=== PATIENT | female | born 1940 | race Caucasian/White ===

== ENCOUNTER 2023-12-21 12:07 | Inpatient (IN) | payer MEDICARE, SELFPAY ==
--- NOTE | ~2023-12-21 | CT_ITS ---
EXAMINATION: CT CHEST WITHOUT CONTRAST CLINICAL INFORMATION: Pulmonary nodules. History of smoking. COMPARISON: None available. TECHNIQUE: Multidetector volumetric CT imaging of the chest was done. Axial MIP volume rendering provided. Sagittal and coronal reformatted images were obtained. This CT examination was performed using dose optimization techniques as appropriate, variously including the following: *Automated exposure control *Adjustment of mA and/or kV according to patient size (this includes techniques or standardized protocols for targeted exams where dose is matched to indication/reason for exam; i.e. extremities or head) *Use of iterative reconstruction technique DLP: 134 mGy-cm FINDINGS: LUNGS: There is 12 mm, well-defined lobulated noncalcified pulmonary nodule, left lung base. There are multiple, scattered, nonspecific destined 5 mm pulmonary nodules, right lung. There is a 10 mm ill-defined nodular attenuation in the posterior segment right upper lobe. Less than 3 mm noncalcified pulmonary nodules, right middle lobe. Subsegmental atelectasis versus scarring, lingula. No bronchiectasis. No honeycombing. MEDIASTINUM: No lymphadenopathy. No pericardial effusion. Mixed plaques throughout the thoracic aorta and its main branches without gross aneurysm. CORONARY ARTERY CALCIFICATION: Calcified plaques in the coronary arteries. PLEURA: No pleural effusion. No pneumothorax. AXILLA: No lymphadenopathy. UPPER ABDOMEN: Calcified plaques throughout the splenic artery. Punctate calcifications throughout the likely pancreatic parenchyma. OSSEOUS STRUCTURES: Multilevel spondylosis. No acute fracture or listhesis. Chondrocalcinosis in the intervertebral disc T11-12. CT/CT chest wo IV con IMPRESSION: Multiple noncalcified pulmonary nodules, the largest in the left lung base measures 12 mm and the most irregular shape in the right upper lobe. Fleischner criteria: Low risk patients: CT abdomen 3-6-month then consider 18-24 months. High risk patients: CT at 3-six-month, then CT at 12/24 months. Coronary artery disease and atherosclerosis disease. Electronically signed by: Nick Mathis MD 12/23/2023 11:27 AM EDT
--- NOTE | ~2023-12-21 | CT_ITS ---
EXAMINATION: CT ABDOMEN AND PELVIS WITH CONTRAST CLINICAL INFORMATION: Evaluate for colovesical fistula COMPARISON: None available. TECHNIQUE: Multidetector volumetric images were obtained from the superior aspect of the liver through the pubic symphysis following administration 85 mL of Omnipaque 350 intravenous contrast. Sagittal and coronal reformatted images were obtained on the technologist's workstation. Oral contrast: No This CT examination was performed using dose optimization techniques as appropriate, variously including the following: *Automated exposure control *Adjustment of mA and/or kV according to patient size (this includes techniques or standardized protocols for targeted exams where dose is matched to indication/reason for exam; i.e. extremities or head) *Use of iterative reconstruction technique DLP: 547 mGy-cm FINDINGS: LUNG BASES: There is a 1 cm nodule at the left lung base. There are 2 nodules each measuring approximately 4 mm located in the inferior right middle lobe. Several 4 mm nodules are present in the right lower lobe. LIVER, GALLBLADDER, AND BILIARY TREE: The liver is normal in size, shape, and attenuation. No focal hepatic lesion or biliary ductal dilatation is present. The gallbladder is contracted around several gallstones. PANCREAS: Unremarkable. SPLEEN: Unremarkable. ADRENAL GLANDS: Unremarkable. KIDNEYS AND URETERS: The kidneys are normal in size, shape, and attenuation. No hydronephrosis, hydroureter, or calculi seen. No perinephric stranding. BLADDER: Unremarkable. GASTROINTESTINAL TRACT: There is a fistulous communication between the sigmoid colon and the vaginal cuff if there has been prior hysterectomy, or with an atrophied uterus. There is soft tissue thickening surrounding the sigmoid adjacent portion of the fistulous tract and mild inflammatory stranding. This may represent communication from a previous diverticular abscess noting prominent diverticulosis. No focal fluid collection or obstruction. No colovesical fistulous communication although the posterior bladder wall is thickened adjacent to the fistulous tract. ABDOMINAL WALL: No significant hernia is appreciated. LYMPH NODES: Normal. VASCULAR: Extensive atherosclerotic calcification of the abdominal aorta with marked luminal narrowing at the aortic bifurcation. PELVIC VISCERA: As above. OSSEOUS STRUCTURES: Unremarkable. CT/CT abdomen pelvis w IV con IMPRESSION: 1. There is a fistulous communication between the sigmoid colon and the vaginal cuff if there has been prior hysterectomy, or with an atrophied uterus. There is soft tissue thickening and mild inflammatory stranding at the proximal aspect. No focal fluid collection or obstruction. 2. There are multiple pulmonary nodules at the lung bases, the largest measuring 1 cm in the left lower lobe. A dedicated chest CT is recommended for further evaluation. 3. Cholelithiasis. 4. Extensive atherosclerotic disease of the abdominal aorta with marked luminal narrowing at the aortic bifurcation. Fleischner guidelines were followed. Electronically signed by: Baldemar Herrera MD 12/21/2023 08:29 PM EDT
[2023-12-21 12:22] VITALS: BP 150/53; PULSE 69; RESP 19; TEMP 36.6; O2SAT 98; BMI 29.3
--- NOTE | 2023-12-21 12:22 | ED.ABDPAIN ---
HPI - Abdominal Pain General Chief Complaint: Urogenital-Female Stated Complaint: Lower abd pain Time Seen by Provider: 12/21/23 16:18 History of Present Illness ED Provider: Jacqueline RAMOS narrative: The patient is an 83-year-old woman who says that about a week ago she felt she had urinary discomfort suggestive of a urinary tract infection. Few days later she started to experience vaginal discharge that she thought seemed unusual. There was brownish, feculent material emanating from her vagina. On Wednesday night she was in [place] and went to an order of emergency room there. She was diagnosed with a urinary tract infection and was given a prescription for Bactrim. She has been taking this prescription. However she has continued to feel unwell and today her daughter brought her to the hospital. No definite fever. No vomiting. She says that in addition to passing what she thinks looks like stool through her vagina she also sometimes passes gas. Related Data Home Medications ?Medication ?Instructions ?Recorded ?Confirmed albuterol sulfate 90 mcg/actuation 2 puff inhalation Q4H PRN 12/21/23 12/21/23 aerosol inhaler Shortness Of Breath aspirin 81 mg tablet,delayed 81 mg PO BEDTIME 12/21/23 12/21/23 release atenolol 25 mg tablet 25 mg PO BEDTIME 12/21/23 12/21/23 atorvastatin 20 mg tablet 20 mg PO BEDTIME 12/21/23 12/21/23 lisinopril 10 1 tab PO BEDTIME 12/21/23 12/21/23 mg-hydrochlorothiazide 12.5 mg tablet sulfamethoxazole 800 1 tab PO BID 12/21/23 12/21/23 mg-trimethoprim 160 mg tablet (Bactrim DS) Allergies Allergy/AdvReac Type Severity Reaction Status Date / Time No Known Allergies Allergy Verified 12/21/23 12:25 Review of Systems Review of Systems Yes all other systems are reviewed and are negative PMFSH Social History Social History Household Members: Family Housing: House Do you presently have visiting nurse or other home services: No Patient Tobacco Use Status: Current everyday Tobacco user Tobacco use type: Cigarette Cigarettes Per Day: 3 Smoked in Last 30 Days: Yes Patient Interested in Nicotine Replacement: No Patient Given Instructions on How to Stop Smoking: No Second Hand Smoke Exposure: No Use of substances other than those prescribed or required for medical reasons: No Have you been hit, kicked, punched, or otherwise hurt by someone within the past year? If so, by whom?: No Do you feel safe in your current relationship?: No Current Relationship Is there a partner from a previous relationship who is making you feel unsafe now?: No Are you made to feel afraid or neglected: No Advance Directives: No Advance Directives Information Provided: Yes Do you have a plan to hurt others: No Plan Recently lost weight without trying: No How much weight loss: Not applicable Eating poorly because of decreased appetite: No Nutrition screen score: 0 Nutrition Risks: No Nutritional Risk Patient : No : No Poor oral hygiene: No Physical Exam ED Vital Signs: Vital Signs - 24 hr 12/21/23 12:22 12/21/23 15:16 12/21/23 16:00 Temperature 98 F 97.8 F Pulse Rate 69 64 62 Respiratory Rate 19 16 16 Blood Pressure 150/53 H 111/72 115/52 L Pulse Oximetry 98 97 96 Oxygen Delivery Method Room Air Room Air Room Air 12/21/23 18:18 Temperature 98.2 F Pulse Rate 72 Respiratory Rate 16 Blood Pressure 117/38 L Pulse Oximetry 97 Oxygen Delivery Method Room Air BMI result Body Mass Index 29.3 Const Other: The patient is awake, alert, pleasant, cooperative. She does not appear in any distress. HENMT Other: Face is symmetrical. Mucous membranes moist. Eyes General: appearance normal, both eyes and all related structures Neck Neck: Yes full ROM Resp Effort & Inspection: normal respiratory effort Auscultation: clear to auscultation bilaterally Cardio Rate: regular rate Rhythm: regular rhythm Heart sounds: S1 normal heart sound present and S2 normal heart sound present GI Other: The abdomen is soft. There is some mild generalized lower abdominal tenderness without focal rebound or guarding. Skin Other: Skin is dry and unremarkable Neuro Other: The patient is awake and alert with a normal mental status. Cranial nerves are intact. She moves her extremities normally and appropriately. Extrem Other: No peripheral edema Course Course Course Narrative: This is a Rapid Medical Exam performed in triage by Cheryle Mauro PA-C. Full HPI, ROS and PE to be performed by primary ED provider. 83-year-old female presenting to the ED c/o UTI which is worsening, has been on Bactrim w/o relief since Wednesday. Admits sx started last Wednesday. Reports lower abdominal pain & brown vaginal discharge since Wednesday. denies vaginal bleeding. +decreased PO intake PE: abdomen soft w/lower ttp, no rebound or guarding Plan: labs, UA Medical Decision Making Medical Decision Making MDM Narrative: The patient presents complaining of symptoms of urinary tract infection. She also presents complaining of symptoms suggestive of a possible colovaginal fistula. She has an elevated white count. She has an elevated CRP. A CT scan of the abdomen and pelvis was done that shows inflammatory changes sigmoid colon with evidence of a colovaginal fistula. Case Was discussed with Dr. Noland of General surgery. The patient will be started on piperacillin/tazobactam and admitted to the surgical service. Lab Data 12/21/23 12:49 12/21/23 12:49 Labs: Lab Results 12/21/23 12/21/23 Range/Units 12:49 16:36 WBC 16.9 H (4.8-10.8) X10*3/uL RBC 3.75 L (4.20-5.50) X10*6/uL Hgb 11.2 L (12.0-16.0) g/dl Hct 32.8 L (37.0-47.0) % MCV 87.5 (80.0-98.0) fL MCH 29.9 (27.0-33.0) pg MCHC 34.1 (31.0-35.0) g/dl RDW 14.6 (11.0-16.0) % Plt Count 405 H (160-400) X10*3/uL MPV 9.1 L (9.4-12.3) fL Immature Gran % (Auto) 1.2 H (0.0-0.4) % Neut % (Auto) 81.3 H (45-73) % Lymph % (Auto) 11.6 L (20-40) % [place] % (Auto) 5.0 (2-11) % Eos % (Auto) 0.4 (0-4) % Baso % (Auto) 0.5 (0-2) % Lymph # (Auto) 2.0 (1.2-4.9) X10*3/uL [place] # (Auto) 0.9 (0.1-1.2) X10*3/uL Eos # (Auto) 0.1 (0.0-0.4) X10*3/uL Baso # (Auto) 0.1 (0.0-0.2) X10*3/uL Abs Immat Gran (auto) 0.21 H (0.00-0.03) X10*3/uL Absolute Neuts (auto) 13.7 H (2.0-8.3) x10*3/uL Absolute Nucleated RBC 0.000 (0.0-0.012) X10*3/uL Nucleated RBC % (auto) 0.0 (0.0-0.2) /100WBC Sodium 136 (135-145) mmol/L Potassium 3.9 (3.3-5.1) mmol/L Chloride 99 (96-108) mmol/L Carbon Dioxide 25 (22-29) mmol/L Anion Gap 16 (12-20) BUN 11 (9-16) mg/dL Creatinine 0.93 (0.5-1.4) mg/dL Estim Creat Clear Calc 40.1 Estimated GFR 58 Random Glucose 176 H (60-115) mg/dL Lactic Acid 1.1 (0.5-2.0) mmol/L Calcium 9.0 (8.4-10.2) mg/dL Magnesium 1.9 (1.6-2.6) mg/dL Total Bilirubin 0.2 (0.0-1.0) mg/dL Direct Bilirubin 0.2 (0.0-0.5) mg/dL AST 27 (5-31) U/L ALT 18 (0-31) U/L Alkaline Phosphatase 123 H (39-117) U/L C-Reactive Protein 5.21 H (< or = 0.50) mg/dL Total Protein 7.7 (6.5-8.0) g/dL Albumin 3.3 L (3.5-5.0) g/dL Lipase 27 (8-78) U/L Urine Color Dark Yellow Urine Appearance Turbid Urine pH 6.5 (5.0-9.0) Ur Specific [place] 1.010 (1.005-1.025) Urine Protein 30 (1+) H (Neg-Trace) mg/dL Urine Glucose (UA) Negative (Negative) mg/dL Urine Ketones Negative (Negative) mg/dL Urine Blood Large (3+) H (Negative) Urine Nitrite Negative (Negative) Ur Leukocyte Esterase Large (3+) H (Negative) Urine RBC >20 H (0-2) /HPF Urine WBC >50 H (0-5) /HPF Ur Squamous Epith Cells 6-10 (0-2) /HPF Urine Bacteria 4+ (None Seen) Hyaline Casts 0-2 (0-2) /LPF Medications Administered Generic Name Dose Route Start Last Admin Trade Name Freq PRN Reason Stop Dose Admin Lactated Ringer's 1,000 mls @ 100 mls/hr 12/21/23 21:30 12/21/23 22:25 Lr IVCONT 100 mls/hr .Q10H SUYAPA Administration Sodium Chloride 3 ml 12/22/23 00:00 12/21/23 23:56 0.9 % Sodium Chloride Flush 3 Ml Syringe IVFLUSH Not Given QSHIFT SUYAPA Discontinued Medications Generic Name Dose Route Start Last Admin Trade Name Freq PRN Reason Stop Dose Admin Piperacillin Sod/Tazobactam 100 mls @ 200 mls/hr 12/21/23 20:57 12/21/23 21:35 Sod 4.5 gm/ Sodium Chloride IV 12/21/23 21:26 Infused ONCE ONE Infusion Piperacillin Sod/Tazobactam 50 mls @ 100 mls/hr 12/21/23 21:30 12/21/23 22:50 Sod 3.375 gm/ Sodium Chloride IV Not Given Q6H SUYAPA Iohexol 85 ml 12/21/23 17:17 12/21/23 17:18 Iohexol 350 Mg/Ml 100 Ml Infus..Btl IV 12/21/23 17:18 85 ml ONCE ONE Administration Discharge Plan Discharge Clinical Impression: Colovaginal fistula, Urinary tract infection Patient Disposition: Admitted As Inpatient Interventions: Admission Worksheet (ED) Last Done: 12/22/23 00:19 Discharge Date/Time: 12/22/23 00:53
[2023-12-21 12:54] LABS: MANUAL DIFF FLAG NO
[2023-12-21 12:55] LABS: Basophils Absolute Auto 0.1 X10*3/uL (0.0-0.2); Basophils Percent Auto 0.5 % (0-2); Eosinophils Absolute Auto 0.1 X10*3/uL (0.0-0.4); Eosinophils Percent Auto 0.4 % (0-4); Hematocrit 32.8 % (37.0-47.0); Hemoglobin 11.2 g/dl (12.0-16.0); Imm Gran Abs Auto 0.21 X10*3/uL (0.00-0.03); Imm Gran Pct Auto 1.2 % (0.0-0.4); Lymphocytes Percent Auto 11.6 % (20-40); Mean Corpuscular HGB Conc 34.1 g/dl (31.0-35.0); Mean Corpuscular Hemoglobin 29.9 pg (27.0-33.0); Mean Corpuscular Volume 87.5 fL (80.0-98.0); Mean Platelet Volume 9.1 fL (9.4-12.3); Monocytes Absolute Auto 0.9 X10*3/uL (0.1-1.2); Neutrophils Absolute Auto 13.7 x10*3/uL (2.0-8.3); Neutrophils Percent Auto 81.3 % (45-73); Platelet Count 405 X10*3/uL (160-400); Red Blood Count 3.75 X10*6/uL (4.20-5.50); Red Cell Distribution Width 14.6 % (11.0-16.0); White Blood Count 16.9 X10*3/uL (4.8-10.8)
[2023-12-21 12:56] LABS: Appearance Urine Turbid; Color Urine Dark Yellow; Glucose Urine UA Negative (Negative); Leukocyte Esterase Urine Large (3+) (Negative); Nitrite Urine Negative (Negative); PH 6.5 (5.0-9.0); UMIC TRIGGER UACC YES; Urine Blood Large (3+) (Negative); Urine Ketones Negative (Negative); Urine Protein 30 (1+) mg/dL (Neg-Trace)
[2023-12-21 13:03] LABS: Bacteria Urine 4+ (None Seen); Hyaline Casts Urine 0-2 /LPF (0-2); RBC Urine >20 /HPF (0-2); UACC Culture Trigger YES; WBC Urine >50 /HPF (0-5)
[2023-12-21 13:10] LABS: Alanine Aminotransferase 18 U/L (0-31); Albumin Level 3.3 g/dL (3.5-5.0); Alkaline Phosphatase 123 U/L (39-117); Anion Gap 16 (12-20); Aspartate Amino Transferase 27 U/L (5-31); Bilirubin Direct 0.2 mg/dL (0.0-0.5); Bilirubin Total 0.2 mg/dL (0.0-1.0); Blood Urea Nitrogen 11 mg/dL (9-16); Carbon Dioxide 25 mmol/L (22-29); Chloride 99 mmol/L (96-108); Creatinine Clr Calc Pharmacy 40.1; Estimated Glomerular Filt Rate 58; Glucose Random 176 mg/dL (60-115); Lipase 27 U/L (8-78); Magnesium 1.9 mg/dL (1.6-2.6); Potassium 3.9 mmol/L (3.3-5.1); Sodium 136 mmol/L (135-145); Total Protein 7.7 g/dL (6.5-8.0)
[2023-12-21 15:16] VITALS: BP 111/72; PULSE 64; RESP 16; TEMP 36.6; O2SAT 97
--- NOTE | 2023-12-21 15:20 | PC.NURSE ---
described internal vaginal pain with discharge and passing gas in the front awaits Provider.
[2023-12-21 16:00] VITALS: BP 115/52; PULSE 62; RESP 16; O2SAT 96
[2023-12-21 16:51] LABS: Lactic Acid 1.1 mmol/L (0.5-2.0)
[2023-12-21 16:54] LABS: C Reactive Protein 5.21 mg/dL (< or = 0.50)
[2023-12-21] MEDS: iohexoL 350 MG/ML 100 ML INFUS..BTL 85 ML IV (17:18)
[2023-12-21 18:18] VITALS: BP 117/38; PULSE 72; RESP 16; TEMP 36.8; O2SAT 97
--- NOTE | 2023-12-21 18:26 | PC.NURSE ---
patient requested pad and change of underwear, patient requested to throw away personal underwear due to stain. stain noted to look like zeenat/brown discharge.
--- NOTE | 2023-12-21 21:00 | PC.NURSE ---
Pt aox3 resting at the bedside. No apparent distress noted. Reports no pain. Pt to be seen by Dr. Noland for colerectal fistula eval. Pt aware of plan of care. Monitoring is ongoing.
[2023-12-21] MEDS: Piperacillin Sodium/Tazobactam 4.5 GM in 0.9 % Sodium Chloride 100 ML IV (21:05)
--- NOTE | 2023-12-21 22:03 | PHA.MEDREC ---
Addendum entered by Farrukh Harper RPh 12/21/23 22:11: med rec reviewed Original Note: Pharmacy Consult ? Medication Reconciliation Pharmacy has completed the medication reconciliation. Spoke to patient to confirm med list.
[2023-12-21] MEDS: Lactated Ringers 1,000 ML 100 ML IVCONT (22:25)
[2023-12-21 22:29] VITALS: BP 112/53; PULSE 63; RESP 14; TEMP 36.8; O2SAT 95
--- NOTE | 2023-12-22 | ECG_ITS ---
Test Reason : PREOP Blood Pressure : / mmHG Vent. Rate : 070 BPM Atrial Rate : 070 BPM P-R Int : 200 ms QRS Dur : 128 ms QT Int : 450 ms P-R-T Axes : 023 -48 040 degrees QTc Int : 486 ms Normal sinus rhythm Right bundle branch block Left anterior fascicular block Bifascicular block Minimal voltage criteria for LVH, may be normal variant ( R in aVL ) Abnormal ECG No previous ECGs available Referred By: Whit Amos Electronically Signed By:LENA LANG
[2023-12-22 00:58] VITALS: BP 130/60; PULSE 66; RESP 17; TEMP 36; O2SAT 96
[2023-12-22 01:03] VITALS: BMI 29.6
[2023-12-22 04:00] VITALS: BP 112/65; PULSE 67; RESP 16; TEMP 36.6; O2SAT 98
[2023-12-22] MEDS: Piperacillin Sodium/Tazobactam 3.375 GM in 0.9 % Sodium Chloride 50 ML IV ×4 (04:00→20:24)
[2023-12-22 05:27] LABS: MANUAL DIFF FLAG NO
[2023-12-22 05:30] LABS: Basophils Absolute Auto 0.1 X10*3/uL (0.0-0.2); Basophils Percent Auto 0.3 % (0-2); Eosinophils Percent Auto 0.1 % (0-4); Hemoglobin 10.1 g/dl (12.0-16.0); Imm Gran Abs Auto 0.19 X10*3/uL (0.00-0.03); Imm Gran Pct Auto 1.3 % (0.0-0.4); Lymphocytes Absolute Auto 1.5 X10*3/uL (1.2-4.9); Lymphocytes Percent Auto 10.2 % (20-40); Mean Corpuscular HGB Conc 32.6 g/dl (31.0-35.0); Mean Corpuscular Hemoglobin 28.4 pg (27.0-33.0); Mean Corpuscular Volume 87.1 fL (80.0-98.0); Mean Platelet Volume 9.2 fL (9.4-12.3); Monocytes Absolute Auto 0.9 X10*3/uL (0.1-1.2); Monocytes Percent Auto 6.2 % (2-11); Neutrophils Absolute Auto 12.2 x10*3/uL (2.0-8.3); Neutrophils Percent Auto 81.9 % (45-73); Platelet Count 372 X10*3/uL (160-400); Red Blood Count 3.56 X10*6/uL (4.20-5.50); Red Cell Distribution Width 14.5 % (11.0-16.0); White Blood Count 14.9 X10*3/uL (4.8-10.8)
[2023-12-22 05:48] LABS: Anion Gap 17 (12-20); Blood Urea Nitrogen 12 mg/dL (9-16); Calcium 8.5 mg/dL (8.4-10.2); Carbon Dioxide 20 mmol/L (22-29); Chloride 103 mmol/L (96-108); Creatinine Clr Calc Pharmacy 40.3; Estimated Glomerular Filt Rate 58; Glucose Random 122 mg/dL (60-115); Potassium 3.8 mmol/L (3.3-5.1); Sodium 136 mmol/L (135-145)
[2023-12-22 07:38] VITALS: BP 129/59; PULSE 65; RESP 17; TEMP 36.1; O2SAT 95
--- NOTE | 2023-12-22 08:27 | P.HPGS_ITS ---
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 She was in her usual state of health until about 5 days ago when she noticed stool and gas coming out of her vagina. She went to an urgent care center in [place] where she was pending the weekend. She was told she had a urinary tract infection and was given Bactrim. However, she had noted persistence of stool and gas coming out from her vagina especially with bowel movements. She therefore decided to come to the ER last night She denies any dysuria. She denies any abdominal pain. She does not recall having been told she had diverticular disease in the past She has known hypertension and is an active smoker. She is not very active in view of her chronic back pain. She has had 3 C sections, and had a hysterectomy in the distant past. She says she had history and oophorectomy because of dysfunctional bleeding then. She had a hernia repaired as well many years ago. She denies any fever or chills. Review of Systems Constitutional: Constitutional: Denies chills and Denies fever(s) Cardiovascular: Cardiovascular: Denies chest pain, Denies dyspnea and Denies dyspnea on exertion Respiratory: Respiratory: Denies cough, Denies dyspnea and Denies dyspnea on exertion Gastrointestinal: Gastrointestinal: Denies hematochezia and Denies change in bowel habits Genitourinary: Genitourinary: Denies hematuria and Reports vaginal discharge Musculoskeletal: Musculoskeletal: Reports back pain and Reports limited range of motion Neurologic: Denies focal weakness and Denies convulsions Psychiatric: Psychiatric: Denies depression and Denies mood swings [facility] Past Medical History Medical History (Updated 12/23/23 @ 09:06 by Joe Del Valle MD) Pulmonary nodules Chronic back pain Smoker Hypertension Surgical History Surgical History (Updated 12/23/23 @ 06:48 by Lenore Looney RN) H/O removal of cyst History of hysterectomy H/O hernia repair Previous section Social History Social History Household Members: Family Housing: House Are you a primary care associate to a significant other at home: No Do you presently have visiting nurse or other home services: No Patient Tobacco Use Status: Current everyday Tobacco user Tobacco use type: Cigarette Cigarettes Per Day: 3 Years Smoked: 50 Second Hand Smoke Exposure: No Advance Directives Date on File: 12/22/23 service: No Meds Allergies Allergy/AdvReac Type Severity Reaction Status Date / Time No Known Allergies Allergy Verified 12/21/23 12:25 Active Medications: Current Medications Acetaminophen (Acetaminophen 325 Mg Tablet) 650 mg PO Q6H PRN PRN Reason: Pain, Mild (Pain Scale 1-3), fever or headache Heparin Sodium (Porcine) (Heparin Sodium,Porcine 5,000 Unit/Ml Vial) 5,000 unit SUBCUT Q8H [facility] Lactated Ringer's (Lr) 1,000 mls @ 100 mls/hr IVCONT .Q10H [facility] Last Admin: 12/21/23 22:25 Dose: 100 mls/hr Piperacillin Sod/Tazobactam (Sod 3.375 gm/ Sodium Chloride) 50 mls @ 100 mls/hr IV Q6H [facility] Last Infusion: 12/22/23 05:10 Dose: Infused Melatonin (Melatonin 3 Mg Tablet) 6 mg PO BEDTIME PRN PRN Reason: Insomnia Morphine Sulfate (Morphine Sulfate 4 Mg/Ml Cartridge) 2 mg IVPUSH Q4H PRN; Protocol PRN Reason: Pain, Severe (Pain Scale 7-10) Ondansetron HCl (Ondansetron Hcl 4 Mg/2 Ml Vial) 4 mg IVPUSH Q8H PRN PRN Reason: Nausea and Vomiting Sodium Chloride (0.9 % Sodium Chloride Flush 3 Ml Syringe) 3 ml IVFLUSH QSHIFT [facility] Last Admin: 12/21/23 23:56 Dose: Not Given Home Medications ?Medication ?Instructions ?Recorded ?Confirmed ?Last Taken ?Type albuterol sulfate 90 mcg/actuation 2 puff inhalation Q4H PRN 12/21/23 12/21/23 Unknown History aerosol inhaler Shortness Of Breath aspirin 81 mg tablet,delayed 81 mg PO BEDTIME 12/21/23 12/21/23 12/20/23 History release atenolol 25 mg tablet 25 mg PO BEDTIME 12/21/23 12/21/23 12/20/23 History atorvastatin 20 mg tablet 20 mg PO BEDTIME 12/21/23 12/21/23 12/20/23 History lisinopril 10 1 tab PO BEDTIME 12/21/23 12/21/23 12/20/23 History mg-hydrochlorothiazide 12.5 mg tablet sulfamethoxazole 800 1 tab PO BID 12/21/23 12/21/23 12/20/23 History mg-trimethoprim 160 mg tablet (Bactrim DS) Physical Exam Vital Signs: Vital Signs: Last Vital Signs Temp 97 F 12/22/23 07:38 Pulse 65 12/22/23 07:38 Resp 17 12/22/23 07:38 BP 129/59 L 12/22/23 07:38 Pulse Ox 95 12/22/23 07:38 O2 Del Method Room Air 12/22/23 07:38 BMI result Body Mass Index 29.6 Const: General: comfortable and no acute distress Orientation/consciousness: patient oriented x3 Neck: Neck: Yes no lymphadenopathy Resp: Auscultation: clear to auscultation bilaterally Cardio: Rhythm: regular rhythm GI: Palpation (GI): Soft to palpation, nontender and no guarding Neuro: General: patient oriented x3 Results Results Labs: Short CBC 12/21/23 12/22/23 Range/Units 12:49 04:46 WBC 16.9 H 14.9 H (4.8-10.8) X10*3/uL Hgb 11.2 L 10.1 L (12.0-16.0) g/dl Hct 32.8 L 31.0 L (37.0-47.0) % Plt Count 405 H 372 (160-400) X10*3/uL BMP 12/21/23 12/22/23 12:49 04:46 Sodium 136 136 Potassium 3.9 3.8 Chloride 99 103 Carbon Dioxide 25 20 L BUN 11 12 Creatinine 0.93 0.93 Calcium 9.0 8.5 Liver Function 12/21/23 Range/Units 12:49 Total Bilirubin 0.2 (0.0-1.0) mg/dL Direct Bilirubin 0.2 (0.0-0.5) mg/dL AST 27 (5-31) U/L ALT 18 (0-31) U/L Alkaline Phosphatase 123 H (39-117) U/L Albumin 3.3 L (3.5-5.0) g/dL Urine 12/21/23 Range/Units 12:49 Urine Color Dark Yellow Urine Appearance Turbid Urine pH 6.5 (5.0-9.0) Ur Specific [place] 1.010 (1.005-1.025) Urine Protein 30 (1+) H (Neg-Trace) mg/dL Urine Glucose (UA) Negative (Negative) mg/dL Laboratory Results WBC 14.9 X10*3/uL (4.8-10.8) H 12/22/23 04:46 RBC 3.56 X10*6/uL (4.20-5.50) L 12/22/23 04:46 Hgb 10.1 g/dl (12.0-16.0) L 12/22/23 04:46 Hct 31.0 % (37.0-47.0) L 12/22/23 04:46 MCV 87.1 fL (80.0-98.0) 12/22/23 04:46 MCH 28.4 pg (27.0-33.0) 12/22/23 04:46 MCHC 32.6 g/dl (31.0-35.0) 12/22/23 04:46 RDW 14.5 % (11.0-16.0) 12/22/23 04:46 Plt Count 372 X10*3/uL (160-400) 12/22/23 04:46 MPV 9.2 fL (9.4-12.3) L 12/22/23 04:46 Immature Gran % (Auto) 1.3 % (0.0-0.4) H 12/22/23 04:46 Neut % (Auto) 81.9 % (45-73) H 12/22/23 04:46 Lymph % (Auto) 10.2 % (20-40) L 12/22/23 04:46 [place] % (Auto) 6.2 % (2-11) 12/22/23 04:46 Eos % (Auto) 0.1 % (0-4) 12/22/23 04:46 Baso % (Auto) 0.3 % (0-2) 12/22/23 04:46 Lymph # (Auto) 1.5 X10*3/uL (1.2-4.9) 12/22/23 04:46 [place] # (Auto) 0.9 X10*3/uL (0.1-1.2) 12/22/23 04:46 Eos # (Auto) 0.0 X10*3/uL (0.0-0.4) 12/22/23 04:46 Baso # (Auto) 0.1 X10*3/uL (0.0-0.2) 12/22/23 04:46 Abs Immat Gran (auto) 0.19 X10*3/uL (0.00-0.03) H 12/22/23 04:46 Absolute Neuts (auto) 12.2 x10*3/uL (2.0-8.3) H 12/22/23 04:46 Absolute Nucleated RBC 0.000 X10*3/uL (0.0-0.012) 12/22/23 04:46 Nucleated RBC % (auto) 0.0 /100WBC (0.0-0.2) 12/22/23 04:46 Sodium 136 mmol/L (135-145) 12/22/23 04:46 Potassium 3.8 mmol/L (3.3-5.1) 12/22/23 04:46 Chloride 103 mmol/L (96-108) 12/22/23 04:46 Carbon Dioxide 20 mmol/L (22-29) L 12/22/23 04:46 Anion Gap 17 (12-20) 12/22/23 04:46 BUN 12 mg/dL (9-16) 12/22/23 04:46 Creatinine 0.93 mg/dL (0.5-1.4) 12/22/23 04:46 Estim Creat Clear Calc 40.3 12/22/23 04:46 Estimated GFR 58 12/22/23 04:46 Random Glucose 122 mg/dL (60-115) H 12/22/23 04:46 Lactic Acid 1.1 mmol/L (0.5-2.0) 12/21/23 16:36 Calcium 8.5 mg/dL (8.4-10.2) 12/22/23 04:46 Magnesium 1.9 mg/dL (1.6-2.6) 12/21/23 12:49 Total Bilirubin 0.2 mg/dL (0.0-1.0) 12/21/23 12:49 Direct Bilirubin 0.2 mg/dL (0.0-0.5) 12/21/23 12:49 AST 27 U/L (5-31) 12/21/23 12:49 ALT 18 U/L (0-31) 12/21/23 12:49 Alkaline Phosphatase 123 U/L (39-117) H 12/21/23 12:49 C-Reactive Protein 5.21 mg/dL (< or = 0.50) H 12/21/23 12:49 Total Protein 7.7 g/dL (6.5-8.0) 12/21/23 12:49 Albumin 3.3 g/dL (3.5-5.0) L 12/21/23 12:49 Lipase 27 U/L (8-78) 12/21/23 12:49 Urine Color Dark Yellow 12/21/23 12:49 Urine Appearance Turbid 12/21/23 12:49 Urine pH 6.5 (5.0-9.0) 12/21/23 12:49 Ur Specific [place] 1.010 (1.005-1.025) 12/21/23 12:49 Urine Protein 30 (1+) mg/dL (Neg-Trace) H 12/21/23 12:49 Urine Glucose (UA) Negative mg/dL (Negative) 12/21/23 12:49 Urine Ketones Negative mg/dL (Negative) 12/21/23 12:49 Urine Blood Large (3+) (Negative) H 12/21/23 12:49 Urine Nitrite Negative (Negative) 12/21/23 12:49 Ur Leukocyte Esterase Large (3+) (Negative) H 12/21/23 12:49 Urine RBC >20 /HPF (0-2) H 12/21/23 12:49 Urine WBC >50 /HPF (0-5) H 12/21/23 12:49 Ur Squamous Epith Cells 6-10 /HPF (0-2) 12/21/23 12:49 Urine Bacteria 4+ (None Seen) 12/21/23 12:49 Hyaline Casts 0-2 /LPF (0-2) 12/21/23 12:49 Impressions Abdomen/Pelvis CT 12/21/23 17:08 IMPRESSION: 1. There is a fistulous communication between the sigmoid colon and the vaginal cuff if there has been prior hysterectomy, or with an atrophied uterus. There is soft tissue thickening and mild inflammatory stranding at the proximal aspect. No focal fluid collection or obstruction. 2. There are multiple pulmonary nodules at the lung bases, the largest measuring 1 cm in the left lower lobe. A dedicated chest CT is recommended for further evaluation. 3. Cholelithiasis. 4. Extensive atherosclerotic disease of the abdominal aorta with marked luminal narrowing at the aortic bifurcation. Fleischner guidelines were followed. Electronically signed by: Baldemar Herrera MD 12/21/2023 08:[address] scan report/results: report reviewed and image reviewed CT scan - pelvis: report reviewed and image reviewed Assessment and Plan (1) Colovaginal fistula: Status: Acute [age] year old female with note of stool and gas coming out of her vagina. She describes content and large amounts of stool and flatus via the vagina for the past 5 days. I have reviewed her CAT scan and this shows colovaginal fistula. There is no drainable abscess in the area. There really is no significant acute inflammatory changes noted in the area. There were no obvious lesions or masses. She denies recall of any history of diverticular disease in the past. I explained to her and her daughter Mercy that it will be best to proceed with sigmoid resection and likely colostomy. I explained the technique of assisted laparoscopic sigmoid resection and colostomy. I reviewed the risks including but not limited to bleeding, infections, injury to other organs, stoma complications, blood clots, pneumonia, VT, as well as the benefits and alternatives She is not very healthy especially for her age. She has a long history of smoking and continues to smoke every day. She has chronic back pain and her activity level is not that great although she ambulates periodically. She says she is unable to ambulate for long periods of time. I we will schedule her for a flexible sigmoidoscopy tomorrow to examine the area. This will allow me to see if there is any neoplastic process that may dictate the plan of care and extent of dissection. She does state that she is up-to-date with her colonoscopies and had the last colonoscopy probably when she was 76. She says that everything was ?normal? at that time. She will however require resection of this area of the fistula as definitive treatment. She will likely need a colostomy. I discussed this technique with patient and her family. I reviewed the risks, benefits, and alternatives. She does have multiple medical issues including a long history of smoking, likely COPD, and hypertension. She does not score well on the functional level of activity he will We will have the hospitalist service see her today however medical issues and for risk stratification for surgery She otherwise looks well and in not septic looking. She does not have any abdominal pain or tenderness. Her daughter Mercy was with her during the entire discussion. We will continue her on Zosyn for now. She does have a urinary tract infection because of the colovaginal fistula but this should be covered by the current antibiotic therapy. Quality Stroke Does the patient have a stroke diagnosis?: No VTE Prior VTE?: No VTE Risk Level:: Medical - moderate - high VTE Device Contraindication: N/A - Device Ordered VTE Drug Contraindication: N/A - Med Ordered Procedures Date of Service Date of Service: 12/23/23
--- NOTE | 2023-12-22 09:06 | P.CONHOSP_ITS ---
History of Present Illness Data of Consult Service Date: 12/22/23 Requesting physician: Cuong Noland Primary Care Provider: Nighat Chopra MD [facility] Reason for consult: risk stratification for surgery Patient is an 83-year-old female with a past medical history significant for hypertension, HLD, possible CAD and current smoker (likely with COPD), consulted for risk stratification for surgery due to possible colovaginal fistula. Plan is for flexible sigmoidoscopy tomorrow to visualize the possible fistula in the sigmoid colon connecting to the vaginal cuff. This was seen on a recent CT after patient reported to the ED with passing gas and stool vaginally and a UTI. She reports that she does have an inhaler for an unknown reason, she is a smoker, and often wheezes in the morning. She smokes 2-3 cigarettes per day, not currently using any nicotine replacement, and does not feel it is needed. She likely has coronary artery disease as she is on baby aspirin and has hyperlipidemia, but denies any previous cardiac issues including NM, arrhythmia or CHF. She had a workup many years ago for angina which was diagnosed as GERD with normal cardiac workup per patient. No diagnosed pulmonary issues, however, likely COPD given her smoking status and albuterol prescription. She has never seen a elevator supervisor and has never had pulmonary function testing. No history of any neurological issues including TIA, stroke, seizure disorder or dementia. No history of bleeding disorder for any issues with anesthesia. Review of Systems 2 Constitutional: Constitutional: Denies chills, Denies fatigue, Denies fever(s) and Denies headache(s) Eyes: Eyes: Denies change in vision ENT: Denies headache(s), Denies nasal congestion and Denies nasal discharge Cardiovascular: Cardiovascular: Denies chest pain, Denies rapid heart rate, Denies lightheadedness and Denies dyspnea Respiratory: Respiratory: Denies dyspnea Gastrointestinal: Gastrointestinal: Reports as per HPI Genitourinary: Genitourinary: Denies dysuria and Denies urinary urgency Integumentary/Breasts: Skin/Breast: Denies rash Neurologic: Denies confusion, Denies headache(s) and Denies memory loss Psychiatric: Psychiatric: Denies confusion and Denies memory loss Endocrine: Endocrine: Denies fatigue Hematologic/Lymphatic: Hematologic/Lymphatic: Denies easy bleeding [facility] Medical History (Updated 12/22/23 @ 09:38 by Whit Amos PA-C) Chronic back pain Smoker Hypertension Social History Household Members: Family Housing: House Do you presently have visiting nurse or other home services: No Patient Tobacco Use Status: Current everyday Tobacco user Tobacco use type: Cigarette Cigarettes Per Day: 3 Smoked in Last 30 Days: Yes Patient Interested in Nicotine Replacement: No Patient Given Instructions on How to Stop Smoking: No Second Hand Smoke Exposure: No Use of substances other than those prescribed or required for medical reasons: No Currently Displaying Signs/Symptoms of Drug Intoxication Withdrawal: No Have you been hit, kicked, punched, or otherwise hurt by someone within the past year? If so, by whom?: No Do you feel safe in your current relationship?: No Current Relationship Is there a partner from a previous relationship who is making you feel unsafe now?: No Are you made to feel afraid or neglected: No Advance Directives: No Advance Directives Information Provided: Yes Do you have a plan to hurt others: No Plan Recently lost weight without trying: No How much weight loss: Not applicable Eating poorly because of decreased appetite: No Nutrition screen score: 0 Nutrition Risks: No Nutritional Risk Patient : No : No Poor oral hygiene: No service: No Meds Allergies Allergy/AdvReac Type Severity Reaction Status Date / Time No Known Allergies Allergy Verified 12/21/23 12:25 Active Medications: Current Medications Acetaminophen (Acetaminophen 325 Mg Tablet) 650 mg PO Q6H PRN PRN Reason: Pain, Mild (Pain Scale 1-3), fever or headache Heparin Sodium (Porcine) (Heparin Sodium,Porcine 5,000 Unit/Ml Vial) 5,000 unit SUBCUT Q8H [facility] Lactated Ringer's (Lr) 1,000 mls @ 100 mls/hr IVCONT .Q10H [facility] Last Admin: 12/21/23 22:25 Dose: 100 mls/hr Piperacillin Sod/Tazobactam (Sod 3.375 gm/ Sodium Chloride) 50 mls @ 100 mls/hr IV Q6H [facility] Last Infusion: 12/22/23 05:10 Dose: Infused Melatonin (Melatonin 3 Mg Tablet) 6 mg PO BEDTIME PRN PRN Reason: Insomnia Morphine Sulfate (Morphine Sulfate 4 Mg/Ml Cartridge) 2 mg IVPUSH Q4H PRN; Protocol PRN Reason: Pain, Severe (Pain Scale 7-10) Ondansetron HCl (Ondansetron Hcl 4 Mg/2 Ml Vial) 4 mg IVPUSH Q8H PRN PRN Reason: Nausea and Vomiting Sodium Chloride (0.9 % Sodium Chloride Flush 3 Ml Syringe) [facility] Last Admin: 12/21/23 23:56 Dose: Not Given Home Medications ?Medication ?Instructions ?Recorded ?Confirmed ?Last Taken ?Type albuterol sulfate 90 mcg/actuation 2 puff inhalation Q4H PRN 12/21/23 12/21/23 Unknown History aerosol inhaler Shortness Of Breath aspirin 81 mg tablet,delayed 81 mg PO BEDTIME 12/21/23 12/21/23 12/20/23 History release atenolol 25 mg tablet 25 mg PO BEDTIME 12/21/23 12/21/23 12/20/23 History atorvastatin 20 mg tablet 20 mg PO BEDTIME 12/21/23 12/21/23 12/20/23 History lisinopril 10 1 tab PO BEDTIME 12/21/23 12/21/23 12/20/23 History mg-hydrochlorothiazide 12.5 mg tablet sulfamethoxazole 800 1 tab PO BID 12/21/23 12/21/23 12/20/23 History mg-trimethoprim 160 mg tablet (Bactrim DS) Physical Exam 2 Vital Signs and Narrative: Vital Signs: Last Vital Signs Temp 97 F 12/22/23 07:38 Pulse 65 12/22/23 07:38 Resp 17 12/22/23 07:38 BP 129/59 L 12/22/23 07:38 Pulse Ox 95 12/22/23 07:38 O2 Del Method Room Air 12/22/23 07:38 BMI result Body Mass Index 29.6 General: AOx3, no acute distress, seen with daughter beside Resp: mild congestion throughout, no wheezing or crackles CVS: S1, S2, RRR GI: +BS, NT, no distention Skin: Warm, dry Extremities: No edema Psych: Appropriate affect Const: General: No confusion Orientation/consciousness: No confusion Neuro: General: No confusion Results Labs 12/22/23 04:46 12/22/23 04:46 Labs: Laboratory Results - last 24 hr 12/21/23 12/21/23 12/22/23 12:49 16:36 04:46 MCV 87.5 87.1 MCH 29.9 28.4 MCHC 34.1 32.6 RDW 14.6 14.5 Plt Count 405 H 372 MPV 9.1 L 9.2 L Immature Gran % (Auto) 1.2 H 1.3 H Neut % (Auto) 81.3 H 81.9 H Lymph % (Auto) 11.6 L 10.2 L [place] % (Auto) 5.0 6.2 Eos % (Auto) 0.4 0.1 Baso % (Auto) 0.5 0.3 Lymph # (Auto) 2.0 1.5 [place] # (Auto) 0.9 0.9 Eos # (Auto) 0.1 0.0 Baso # (Auto) 0.1 0.1 Abs Immat Gran (auto) 0.21 H 0.19 H Absolute Neuts (auto) 13.7 H 12.2 H Absolute Nucleated RBC 0.000 0.000 Nucleated RBC % (auto) 0.0 0.0 Anion Gap 16 17 Estim Creat Clear Calc 40.1 40.3 Estimated GFR 58 58 Random Glucose 176 H 122 H Lactic Acid 1.1 Calcium 9.0 8.5 Magnesium 1.9 Total Bilirubin 0.2 Direct Bilirubin 0.2 AST 27 ALT 18 Alkaline Phosphatase 123 H C-Reactive Protein 5.21 H Total Protein 7.7 Albumin 3.3 L Lipase 27 Urine Color Dark Yellow Urine Appearance Turbid Urine pH 6.5 Ur Specific [place] 1.010 Urine Protein 30 (1+) H Urine Glucose (UA) Negative Urine Ketones Negative Urine Blood Large (3+) H Urine Nitrite Negative Ur Leukocyte Esterase Large (3+) H Urine RBC >20 H Urine WBC >50 H Ur Squamous Epith Cells 6-10 Urine Bacteria 4+ Hyaline Casts 0-2 ECG Interpretation: normal sinus rhythm, rate about 70, bifascicular block, Qtc 486 Imaging Radiologist's Impressions: Impressions Abdomen/Pelvis CT 12/21/23 17:08 IMPRESSION: 1. There is a fistulous communication between the sigmoid colon and the vaginal cuff if there has been prior hysterectomy, or with an atrophied uterus. There is soft tissue thickening and mild inflammatory stranding at the proximal aspect. No focal fluid collection or obstruction. 2. There are multiple pulmonary nodules at the lung bases, the largest measuring 1 cm in the left lower lobe. A dedicated chest CT is recommended for further evaluation. 3. Cholelithiasis. 4. Extensive atherosclerotic disease of the abdominal aorta with marked luminal narrowing at the aortic bifurcation. Fleischner guidelines were followed. Electronically signed by: Baldemar Herrera MD 12/21/2023 08:29 PM EDT Assessment and Plan (1) Preprocedural examination: Status: Acute (2) Hypertension: Status: Acute (3) Urinary tract infection: Status: Acute (4) Smoker: Status: Acute Plan Patient is an 83-year-old female with a past medical history significant for hypertension, HLD, possible CAD and current smoker (likely with COPD), consulted for risk stratification for surgery due to possible colovaginal fistula. Plan is for flexible sigmoidoscopy tomorrow to visualize the possible fistula in the sigmoid colon connecting to the vaginal cuff. Likely to have CAD and COPD however diagnoses are unclear per patient. Colovaginal fistula - plan per surgery - clear liquid diet - EKG with bifascicular block, pt asx - RCRI risk class 1 - ASA risk II-III UTI - continue zosyn HTN - BP good now, not on any home BP meds would recommend to continue to hold but restart if BP starts to rise HLD - continue atorvastatin CAD - continue ASA 81 after procedure ?COPD vs reactive airway disease - continue albuterol Q4H PRN for wheezing or SOB Pulmonary nodules - found on recent A/P CT - recommend outpatient follow-up for dedicated chest CT Patient is moderate to high risk for anesthesia given her multiple comorbidities including coronary artery disease, likely COPD versus reactive airway disease, smoking status and advanced age. Risks of the procedure were discussed with Dr. Noland. She would like to proceed with surgical plan. Thank you for allowing me to participate in the pt's care. Signing off for now. Please contact the medical team if any questions or concerns.
--- NOTE | 2023-12-22 09:32 | MHC.CM.PN ---
IMM DELIVERED PT LIVES WITH DAUGHTER IN AN [place] LAW APT. [place]END[place] AT [place]ELINE BUT DOES USE HER WALKER/CANE NEEDED. PT HAS NO SERVICES AT THIS TIME. +HCP PCP JERARDO KING DP: HOME VS HOME WITH SERVICES ? PT IS OPEN TO [facility] IF RECOMMENDED. [facility] IS FIRST CHOICE. DAUGHTER WILL TRANSPORT HOME. CM WILL CONTINUE TO FOLLOW FOR ANY CHANGE TO DC PLAN/NEEDS.
[2023-12-22] MEDS: Heparin Sodium,Porcine 5,000 UNIT/ML VIAL 5000 UNIT SUBCUT ×2 (09:45→18:18)
[2023-12-22] MEDS: Lactated Ringers 1,000 ML 100 ML IVCONT ×2 (09:45→20:23)
[2023-12-22 15:14] VITALS: BP 136/60; PULSE 68; RESP 18; TEMP 36.6; O2SAT 96
[2023-12-22] MEDS: ondansetron HCL 4 MG/2 ML VIAL IVPUSH (18:58)
[2023-12-22 20:00] VITALS: BP 123/80; PULSE 70; RESP 16; TEMP 36.3; O2SAT 95
[2023-12-23] VITALS (8 sets, daily range): BP systolic 100–154; BP diastolic 38–71; PULSE 63–87; RESP 16–20; TEMP 36.1–36.8; O2SAT 93–97
[2023-12-23] MEDS: Piperacillin Sodium/Tazobactam 3.375 GM in 0.9 % Sodium Chloride 50 ML IV ×4 (02:39→20:03)
[2023-12-23] MEDS: Heparin Sodium,Porcine 5,000 UNIT/ML VIAL 5000 UNIT SUBCUT ×3 (02:39→18:14)
[2023-12-23] MEDS: Lactated Ringers 1,000 ML 100 ML IVCONT (06:04)
--- NOTE | 2023-12-23 07:00 | CA_ITS ---
Transthoracic Echocardiogram Patient (Last, First, Middle): ShannanJuly, Gender: Female Date of : 1940 Age: 83 Procedure Date: 12/23/2023 Procedure Type: Transthoracic Echocardiogram Location: S3W Height: 152.4 cm Weight: 68.49 kg BSA: 1.66 m2 Heart Rate: bpm BP: 100 / 38 mmHg Flue Lining Dipper: TO Referring MD: Linn Fernandez MD Symptoms: Pre-Op evaluation Study Quality: Fair ECG Rhythm: Sinus Conclusions: - The left ventricular systolic function is normal. The calculated ejection fraction is 67% by biplane method. - No obvious valvular pathology seen on this study. Findings Procedure Information The study quality is limited by the patients inability to tolerate the test. Left Ventricle Normal left ventricular cavity size. The left ventricular systolic function is normal. The calculated ejection fraction is 67% by biplane method. There is no evidence of regional wall motion abnormalities. Diastolic function is normal for age. There is mild septal and mild basal asymmetric hypertrophy. Right Ventricle Normal right ventricular cavity size and systolic function. Atria The left atrium is mildly dilated. The right atrium is normal in size. Aortic Valve There is a normal trileaflet aortic valve. There is mild calcification of the aortic valve. There is no aortic valve stenosis. There is no aortic valve regurgitation. Mitral Valve The mitral valve appears normal. There is trace mitral valve regurgitation. There is no mitral valve stenosis. Pulmonic Valve The pulmonic valve is likely normal. Tricuspid Valve There is mild tricuspid valve regurgitation. Mild pulmonary hypertension is present. Great Vessels The asc aorta is normal in size. Venous The inferior vena cava is mildly dilated and collapses greater than 50% with inspiration. Prior Study Comparison No prior study available for comparison. Recommendations, Care & Conclusions No obvious valvular pathology seen on this study. Measurements 2D Linear Measurements IVSd: 1.19 0.6-0.9/0.6-1.0 cm LVIDd: 3.97 3.9-5.3/4.2-5.9 cm LVIDd Index: 2.39 2.4-3.2/2.2-3.1 cm/m2 LVIDs: 2.61 2.0-3.6 cm LVPWd: 0.82 0.7-1.1 cm LA Diam: 3.30 2.7-3.8/3.0-4.0 cm LAIDs Index: 1.99 1.5-2.3 cm/m2 LV Mass: 156.77 67-162/88-224 g LV Mass Index: 94.44 43-95/49-115 g/m2 LVOT Diam: 2.10 3.0+(-)1.3 cm 2D Systolic Function EF 4C: 68.70 >55% EF 2C: 66.30 >55% EF BiP: 67.10 >55% Mitral Valve MV Pk E: 0.86 MV PK A: 0.80 MV Decel Time: 193.00 E/A: 1.10 E'Lateral: 7.18 E'Medial: 6.20 E/E' Med: 13.90 E/E' Lat: 12.00 PHT: 56.00 MVA PHT: 3.93 Decel [place]: 4.47 Aortic Valve AoV Pk [place]: 1.55 AoV Mn [place]: 0.98 AoV VTI: 0.35 AoV Pk Grad: 10.00 Aov Mn Grad: 4.00 ДМИТРИЙ Cont.VTI: 2.47 LVOT LVOT Pk [place]: 1.04 LVOT Mn [place]: 0.69 LVOT VTI: 0.25 LVOT Pk Grad: 4.00 LVOT Mn Grad: 2.00 LVOT Diam: 2.10 LVOT Area: 3.46 Diastolic Function MV Pk E: 0.86 MV Pk A: 0.80 E/A: 1.10 E'Medial: 6.20 E/E' Med: 13.90 E' Laterial: 7.18 E/E' Lat: 12.00 Right Ventricle TAPSE (mm): 26.10 TVS' [place]: 11.60 Tricuspid Valve TR Pk [place]: 2.59 TR Pk Grad: 27.00 RA Press: 8.00 RVSP: 35.00 Great Vessels Aorta Sinus of Valsalva: 3.12 2.0-3.5 cm Ao Asc: 3.30 2.1-3.4 cm Updated in Other Vendor System with Status of Final Rubén Sosa MD electronically signed on 12/23/2023 3:17:34 PM with status of Final
--- NOTE | 2023-12-23 07:16 | PM.EVENT ---
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
--- NOTE | 2023-12-23 07:17 | HO.ANESPROP2 ---
HPI - Anesthesia Eval Consult details Narrative: for flex sig. PMFSH Active Problems Active Problems: All Active Problems Preprocedural examination (Acute) Urinary tract infection (Acute) Colovaginal fistula (Acute) Chronic back pain (Acute) Smoker (Acute) Hypertension (Acute) Past Medical History Medical History (Updated 12/22/23 @ 09:38 by Whit Amos PA-C) Chronic back pain Smoker Hypertension Family History Family history of problems with anesthesia: No Surgical History Surgical History (Updated 12/23/23 @ 06:48 by Lenore Looney RN) H/O removal of cyst History of hysterectomy H/O hernia repair Previous section History of Problems with Anesthesia: No Social History Social History Household Members: Family Housing: House Are you a primary nanny caregiver to a significant other at home: No Do you presently have visiting nurse or other home services: No Patient Tobacco Use Status: Current everyday Tobacco user Tobacco use type: Cigarette Cigarettes Per Day: 3 Years Smoked: 50 Smoked in Last 30 Days: Yes Patient Interested in Nicotine Replacement: No Patient Given Instructions on How to Stop Smoking: No Second Hand Smoke Exposure: No Use of substances other than those prescribed or required for medical reasons: No Currently Displaying Signs/Symptoms of Drug Intoxication Withdrawal: No Have you been hit, kicked, punched, or otherwise hurt by someone within the past year? If so, by whom?: No Do you feel safe in your current relationship?: No Current Relationship Is there a partner from a previous relationship who is making you feel unsafe now?: No Are you made to feel afraid or neglected: No Are you DNR?: No Advance Directives: Yes Advance Directives Information Provided: Yes Advance Directives on File: Yes Advance Directives Date on File: 12/22/23 Do you have a plan to hurt others: No Plan Recently lost weight without trying: No How much weight loss: Not applicable Eating poorly because of decreased appetite: No Nutrition screen score: 0 Nutrition Risks: No Nutritional Risk Patient : No : No Poor oral hygiene: Yes (upper and lower full denture) service: No Meds Allergies Allergy/AdvReac Type Severity Reaction Status Date / Time No Known Allergies Allergy Verified 12/21/23 12:25 Active Medications: Current Medications Acetaminophen (Acetaminophen 325 Mg Tablet) 650 mg PO Q6H PRN PRN Reason: Pain, Mild (Pain Scale 1-3), fever or headache Heparin Sodium (Porcine) (Heparin Sodium,Porcine 5,000 Unit/Ml Vial) 5,000 unit SUBCUT Q8H [facility] Last Admin: 12/23/23 02:39 Dose: 5,000 unit Lactated Ringer's (Lr) 1,000 mls @ 100 mls/hr IVCONT .Q10H [facility] Last Admin: 12/23/23 06:04 Dose: 100 mls/hr Piperacillin Sod/Tazobactam (Sod 3.375 gm/ Sodium Chloride) 50 mls @ 100 mls/hr IV Q6H [facility] Last Infusion: 12/23/23 03:15 Dose: Infused Lactated Ringer's (Lr) 1,000 mls @ 80 mls/hr IVCONT .[id number] [facility] Melatonin (Melatonin 3 Mg Tablet) 6 mg PO BEDTIME PRN PRN Reason: Insomnia Morphine Sulfate (Morphine Sulfate 4 Mg/Ml Cartridge) 2 mg IVPUSH Q4H PRN; Protocol PRN Reason: Pain, Severe (Pain Scale 7-10) Ondansetron HCl (Ondansetron Hcl 4 Mg/2 Ml Vial) 4 mg IVPUSH Q8H PRN PRN Reason: Nausea and Vomiting Last Admin: 12/22/23 18:58 Dose: 4 mg Sodium Chloride (0.9 % Sodium Chloride Flush 3 Ml Syringe) 3 ml IVFLUSH QSHIFT [facility] Last Admin: 12/22/23 23:20 Dose: Not Given Home Medications ?Medication ?Instructions ?Recorded ?Confirmed ?Last Taken ?Type albuterol sulfate 90 mcg/actuation 2 puff inhalation Q4H PRN 12/21/23 12/21/23 Unknown History aerosol inhaler Shortness Of Breath aspirin 81 mg tablet,delayed 81 mg PO BEDTIME 12/21/23 12/21/23 12/20/23 History release atenolol 25 mg tablet 25 mg PO BEDTIME 12/21/23 12/21/23 12/20/23 History atorvastatin 20 mg tablet 20 mg PO BEDTIME 12/21/23 12/21/23 12/20/23 History lisinopril 10 1 tab PO BEDTIME 12/21/23 12/21/23 12/20/23 History mg-hydrochlorothiazide 12.5 mg tablet sulfamethoxazole 800 1 tab PO BID 12/21/23 12/21/2324 History mg-trimethoprim 160 mg tablet (Bactrim DS) Exam Height,Weight and Vital Signs: Height 5 ft Weight 68.8 kg Last Vital Signs Temp 97.7 F 12/23/23 06:49 Pulse 72 12/23/23 06:49 Resp 18 12/23/23 06:49 BP 148/62 H 12/23/23 06:49 Pulse Ox 96 12/23/23 06:49 O2 Del Method Room Air 12/23/23 06:49 Pertinent Lab Results Pertinent Lab Results: Laboratory Tests 12/21/23 12/21/23 12/22/23 12:49 16:36 04:46 WBC 16.9 H 14.9 H RBC 3.75 L 3.56 L Hgb 11.2 L 10.1 L Hct 32.8 L 31.0 L MCV 87.5 87.1 MCH 29.9 28.4 MCHC 34.1 32.6 RDW 14.6 14.5 Plt Count 405 H 372 MPV 9.1 L 9.2 L Immature Gran % (Auto) 1.2 H 1.3 H Neut % (Auto) 81.3 H 81.9 H Lymph % (Auto) 11.6 L 10.2 L [place] % (Auto) 5.0 6.2 Eos % (Auto) 0.4 0.1 Baso % (Auto) 0.5 0.3 Lymph # (Auto) 2.0 1.5 [place] # (Auto) 0.9 0.9 Eos # (Auto) 0.1 0.0 Baso # (Auto) 0.1 0.1 Abs Immat Gran (auto) 0.21 H 0.19 H Absolute Neuts (auto) 13.7 H 12.2 H Absolute Nucleated RBC 0.000 0.000 Nucleated RBC % (auto) 0.0 0.0 Sodium 136 136 Potassium 3.9 3.8 Chloride 99 103 Carbon Dioxide 25 20 L Anion Gap 16 17 BUN 11 12 Creatinine 0.93 0.93 Estim Creat Clear Calc 40.1 40.3 Estimated GFR 58 58 Random Glucose 176 H 122 H Lactic Acid 1.1 Calcium 9.0 8.5 Magnesium 1.9 Total Bilirubin 0.2 Direct Bilirubin 0.2 AST 27 ALT 18 Alkaline Phosphatase 123 H C-Reactive Protein 5.21 H Total Protein 7.7 Albumin 3.3 L Lipase 27 Urine Color Dark Yellow Urine Appearance Turbid Urine pH 6.5 Ur Specific [place] 1.010 Urine Protein 30 (1+) H Urine Glucose (UA) Negative Urine Ketones Negative Urine Blood Large (3+) H Urine Nitrite Negative Ur Leukocyte Esterase Large (3+) H Urine RBC >20 H Urine WBC >50 H Ur Squamous Epith Cells 6-10 Urine Bacteria 4+ Hyaline Casts 0-2 Airway Mallampati Class: III TM Dist: <=3cm Neck ROM: Full Denture: Upper Heart: ok Other: wheezes. Sat 96% room air. Neb given. Assessment and Plan Assessment Anesthesia Assessment: Anesthesia Plan Discussed and Chart Reviewed Final Anesthetic Review Family History of Problems with Anesthesia: No History of Problems with Anesthesia: No NPO: Yes ASA Class: III Final Preanesthetic Review: No Changes in Pt Med Stat, Meds/Allgs Chart Reviewed, Consent Obtained/Reviewed and Anes Risks/Benef Reviewed Patient Risk: Intermediate Procedure Risk: Low Anesthetic Plan Anesthetic Plan: MAC: and Agree w/ Assess. and Plan Disposition: Standard PACU
[2023-12-23] MEDS: Lactated Ringers 1,000 ML 80 ML IVCONT ×2 (07:22→20:51)
[2023-12-23] MEDS: Albuterol Sulfate (0.083%) 2.5 MG/3 ML VIAL.NEB INHALE (07:23)
--- NOTE | 2023-12-23 07:44 | W.PM.OPN ---
Operative Note Operative Note Date of Service: 12/23/23 Narrative: Preop diagnosis: Colovaginal fistula Postop diagnosis: The same , with negative flexible sigmoidoscopy up to 25 cm Procedure: Flexible sigmoidoscopy up to 25 cm Surgeon: Cuong Noland MD The patient is an 83-year-old female admitted for a colovaginal fistula. She is here for a flexible sigmoidoscopy. She understood the technique of the planned procedure as well as the risks, benefits, and alternatives She was brought to the operating room. She was was placed in left lateral decubitus position under monitored anesthesia care. A surgical time-out was done. A full digital rectal exam was done. There were no palpable internal lesions. There was note of a lot of stools in the vaginal introitus and she was noted to be passing flatus as well during the examination I proceeded to then gently inserted the Olympus endoscope through the anal orifice this. This was advanced gently with careful insufflation. I was able to advance this is a 25 cm and encountered significant angulation. I attempted to pass through this angulation multiple times but in view of the risk of causing a perforation if this was the site of the colovaginal fistula, decided to not continue to be aggressive with this I then proceeded to withdraw the scope with careful examination of the rest of the distal sigmoid and rectum. There were no lesions seen . The scope was then withdrawn completely with desufflation The patient tolerated the procedure well. There were no immediate complications. She is scheduled to undergo sigmoid resection for her colovaginal fistula tomorrow.
--- NOTE | 2023-12-23 09:02 | P.CONPL_ITS ---
History of Present Illness History of Present Illness Consult date: 12/23/23 Chief complaint: Colovaginal Fistula Narrative: This is an inpatient pulmonary consultation. The patient is an 83-year-old female with a past medical history significant for current smoker (likely with COPD) presenting with a possible colovaginal fistula. Plan is for flexible sigmoidoscopy tomorrow to visualize the possible fistula in the sigmoid colon connecting to the vaginal cuff. This was seen on a recent CT after patient reported to the ED with passing gas and stool vaginally and a UTI. She reports that she does have an inhaler for an unknown reason, she is a smoker, and often wheezes in the morning. The patient had a CT scan of the abdomen which I personally reviewed. There was about a cm nodular density in the left lower lobe and a small subcentimeter nodule in the right lower lobe. Again this is limited just to the lower lung cuts of the abdominal CT scan. And she does need a formal CT scan of the chest. However, right now she is going through a lot with her GI and client experience administrator issue. I did recommend that the patient gets treated for the active issues and when she is discharged she undergoes a CT scan of the chest deformity follow-up with their findings. In the meantime she does smoke. Review of Systems 2 Constitutional: Constitutional: Denies chills, Denies fatigue, Denies fever(s) and Denies headache(s) Eyes: Eyes: Denies change in vision ENT: Denies headache(s), Denies nasal congestion and Denies nasal discharge Cardiovascular: Cardiovascular: Denies chest pain, Denies rapid heart rate, Denies lightheadedness and Denies dyspnea Respiratory: Respiratory: Denies dyspnea Gastrointestinal: Gastrointestinal: Reports as per HPI Genitourinary: Genitourinary: Denies dysuria and Denies urinary urgency Integumentary/Breasts: Skin/Breast: Denies rash Neurologic: Denies headache(s) and Denies memory loss Psychiatric: Psychiatric: Denies memory loss Endocrine: Endocrine: Denies fatigue Hematologic/Lymphatic: Hematologic/Lymphatic: Denies easy bleeding PMFSH Past Medical History Medical History (Updated 12/23/23 @ 09:06 by Joe Del Valle MD) Pulmonary nodules Chronic back pain Smoker Hypertension Surgical History Surgical History (Updated 12/23/23 @ 06:48 by Lenore Looney RN) H/O removal of cyst History of hysterectomy H/O hernia repair Previous section Social History Social History Household Members: Family Housing: House Are you a primary post acute care registered nurse to a significant other at home: No Do you presently have visiting nurse or other home services: No Patient Tobacco Use Status: Current everyday Tobacco user Tobacco use type: Cigarette Cigarettes Per Day: 3 Years Smoked: 50 Smoked in Last 30 Days: Yes Patient Interested in Nicotine Replacement: No Patient Given Instructions on How to Stop Smoking: No Second Hand Smoke Exposure: No Use of substances other than those prescribed or required for medical reasons: No Currently Displaying Signs/Symptoms of Drug Intoxication Withdrawal: No Have you been hit, kicked, punched, or otherwise hurt by someone within the past year? If so, by whom?: No Do you feel safe in your current relationship?: No Current Relationship Is there a partner from a previous relationship who is making you feel unsafe now?: No Are you made to feel afraid or neglected: No Are you DNR?: No Advance Directives: Yes Advance Directives Information Provided: Yes Advance Directives on File: Yes Advance Directives Date on File: 12/22/23 Do you have a plan to hurt others: No Plan Recently lost weight without trying: No How much weight loss: Not applicable Eating poorly because of decreased appetite: No Nutrition screen score: 0 Nutrition Risks: No Nutritional Risk Patient : No : No Poor oral hygiene: Yes (upper and lower full denture) service: No Meds Allergies Allergy/AdvReac Type Severity Reaction Status Date / Time No Known Allergies Allergy Verified 12/21/23 12:25 Active Medications: Current Medications Acetaminophen (Acetaminophen 325 Mg Tablet) 650 mg PO Q6H PRN PRN Reason: Pain, Mild (Pain Scale 1-3), fever or headache Albuterol Sulfate (Albuterol Sulfate 90 Mcg 8 Gm Inhaler) 2 puff INHALE Q4H PRN PRN Reason: Shortness Of Breath Atenolol (Atenolol 25 Mg Tablet) 25 mg PO BEDTIME [facility]; Protocol Atorvastatin Calcium (Atorvastatin Calcium 20 Mg Tablet) 20 mg PO BEDTIME [facility] Heparin Sodium (Porcine) (Heparin Sodium,Porcine 5,000 Unit/Ml Vial) 5,000 unit SUBCUT Q8H [facility] Last Admin: 12/23/23 02:39 Dose: 5,000 unit Piperacillin Sod/Tazobactam (Sod 3.375 gm/ Sodium Chloride) 50 mls @ 100 mls/hr IV Q6H [facility] Last Infusion: 12/23/23 03:15 Dose: Infused Lactated Ringer's (Lr) 1,000 mls @ 80 mls/hr IVCONT .[id number] [facility] Last Admin: 12/23/23 07:22 Dose: 80 mls/hr Melatonin (Melatonin 3 Mg Tablet) 6 mg PO BEDTIME PRN PRN Reason: Insomnia Morphine Sulfate (Morphine Sulfate 4 Mg/Ml Cartridge) 2 mg IVPUSH Q4H PRN; Protocol PRN Reason: Pain, Severe (Pain Scale 7-10) Ondansetron HCl (Ondansetron Hcl 4 Mg/2 Ml Vial) 4 mg IVPUSH Q8H PRN PRN Reason: Nausea and Vomiting Last Admin: 12/22/23 18:58 Dose: 4 mg Sodium Chloride (0.9 % Sodium Chloride Flush 3 Ml Syringe) 3 ml IVFLUSH QSHIFT [facility] Last Admin: 12/22/23 23:20 Dose: Not Given Home Medications ?Medication ?Instructions ?Recorded ?Confirmed ?Last Taken ?Type albuterol sulfate 90 mcg/actuation 2 puff inhalation Q4H PRN 12/21/23 12/21/23 Unknown History aerosol inhaler Shortness Of Breath aspirin 81 mg tablet,delayed 81 mg PO BEDTIME 12/21/23 12/21/23 12/20/23 History release atenolol 25 mg tablet 25 mg PO BEDTIME 12/21/23 12/21/23 12/20/23 History atorvastatin 20 mg tablet 20 mg PO BEDTIME 12/21/23 12/21/23 12/20/23 History lisinopril 10 1 tab PO BEDTIME 12/21/23 12/21/23 12/20/23 History mg-hydrochlorothiazide 12.5 mg tablet sulfamethoxazole 800 1 tab PO BID 12/21/23 12/21/23 12/20/23 History mg-trimethoprim 160 mg tablet (Bactrim DS) Physical Exam 2 Vital Signs: Vital Signs: Last Vital Signs Temp 98.3 F 12/23/23 08:10 Pulse 63 12/23/23 08:10 Resp 16 12/23/23 08:10 BP 125/46 L 12/23/23 08:10 Pulse Ox 94 12/23/23 08:10 O2 Del Method Room Air 12/23/23 08:10 BMI result Body Mass Index 29.6 Const: General: comfortable HEENT: Head: Yes normocephalic Neck: Neck: Yes supple Chest: Chest palpation & inspection: normal inspection of the chest Resp: Effort & Inspection: normal respiratory effort Auscultation: d iminished lung sounds Cardio: Heart sounds: S1 normal heart sound present and S2 normal heart sound present GI: Palpation (GI): Soft to palpation Skin: General skin exam: no rashes or lesions noted Extrem: General: No clubbing and No cyanosis Results Laboratory Findings 12/22/23 04:46 12/22/23 04:46 Abnormal lab findings: Abnormal Labs 12/21/23 12/22/23 12:49 04:46 WBC 16.9 H 14.9 H RBC 3.75 L 3.56 L Hgb 11.2 L 10.1 L Hct 32.8 L 31.0 L Plt Count 405 H MPV 9.1 L 9.2 L Immature Gran % (Auto) 1.2 H 1.3 H Neut % (Auto) 81.3 H 81.9 H Lymph % (Auto) 11.6 L 10.2 L Abs Immat Gran (auto) 0.21 H 0.19 H Absolute Neuts (auto) 13.7 H 12.2 H Carbon Dioxide 20 L Random Glucose 176 H 122 H Alkaline Phosphatase 123 H C-Reactive Protein 5.21 H Albumin 3.3 L Urine Protein 30 (1+) H Urine Blood Large (3+) H Ur Leukocyte Esterase Large (3+) H Urine RBC >20 H Urine WBC >50 H Microbiology: Microbiology 12/21/23 16:46 Blood - Venous Blood Culture - Preliminary No growth after 24 hours. 12/21/23 16:36 Blood - Venous Blood Culture - Preliminary No growth after 24 hours. 12/21/23 Unknown Urine Catheterized - Straight Catheter Urine Culture - Preliminary Culture in progress. Assessment and Plan (1) Smoker: Status: Acute (2) Pulmonary nodules: Status: Acute (3) Colovaginal fistula: Status: Acute Plan The patient does have a pulmonary nodule of intermediate size. She needs a smoker and therefore concerning for the possibility of malignancy. The larger nodule in the left would be the more concerning nodule. Still though a formal CT scan of the chest will be required to better address any other involvement. Currently the patient is going through a lot with the active medical issues that brought her to the hospital. My recommendation is to wait and she is discharged and follow-up as an outpatient in the chest. She will be provide nebulized therapy as needed Tobacco cessation Please make sure the patient follows as an outpatient. I will reach out to our office to make sure that an appointment is provided. Procedures Date of Service Date of Service: 12/23/23
[2023-12-23] MEDS: 0.9 % Sodium Chloride Flush 3 ML SYRINGE IVFLUSH ×2 (09:08→21:55)
--- NOTE | 2023-12-23 15:21 | PM.EVENT ---
Event Note Date of Service: 12/24/23 Event Note: Echocardiogram done as requested by anesthesia Discussed with geosciences faculty member - ursula FANG In view of anesthesia says concerns with regards to pulmonary and cardiac functions, I had a long discussion with the family and the patient I explained the option of a diverting loop colostomy from the transverse colon as a quicker procedure with much less perioperative risks We will be able to avoid resection which involves more perioperative risks including risk of injury to other organs and a much longer anesthesia time I explained the risks of bleeding, infections, loss of airway, respiratory failure, perioperative [place], pneumonia and blood clots I have explained to them what to expect postoperatively including how to care for the colostomy The patient and the family have given consent The patient states that she can not live like this Time Spent With Patient Time: Total time managing care of this patient today ____ minutes.
[2023-12-23] MEDS: Atorvastatin Calcium 20 MG TABLET PO (20:05)
[2023-12-23] MEDS: atenoloL 25 MG TABLET PO (20:05)
[2023-12-23] MEDS: Melatonin 3 MG TABLET 6 MG PO (20:51)
[2023-12-24] VITALS (20 sets, daily range): BP systolic 128–185; BP diastolic 47–87; PULSE 57–69; RESP 16–24; TEMP 35.6–36.6; O2SAT 93–100
[2023-12-24] MEDS: Heparin Sodium,Porcine 5,000 UNIT/ML VIAL 5000 UNIT SUBCUT ×2 (02:28→18:00)
[2023-12-24] MEDS: Piperacillin Sodium/Tazobactam 3.375 GM in 0.9 % Sodium Chloride 50 ML IV ×3 (02:28→20:00)
[2023-12-24] MEDS: Lactated Ringers 1,000 ML 80 ML IVCONT (06:48)
[2023-12-24] MEDS: Albuterol Sulfate (0.083%) 2.5 MG/3 ML VIAL.NEB INHALE (06:50)
--- NOTE | 2023-12-24 07:03 | PC.NURSE ---
dr aleman at bedside at 0640 aware patients wheezes no sob noted resp tx ordered pt recieved resp status remains the same [id number] family at bedside aware careplan pt speaking in full sentences
--- NOTE | 2023-12-24 07:28 | PC.NURSE ---
dr jarquin at bedside with family and patient verbalized understanding of procedure
--- NOTE | 2023-12-24 08:03 | HO.ANESPROP2 ---
HPI - Anesthesia Eval Consult details Narrative: For transverse colostomy PMFSH Active Problems Active Problems: All Active Problems Pulmonary nodules (Acute) Preprocedural examination (Acute) Urinary tract infection (Acute) Colovaginal fistula (Acute) Chronic back pain (Acute) Smoker (Acute) Hypertension (Acute) Past Medical History Medical History (Updated 12/23/23 @ 09:06 by Joe Del Valle MD) Pulmonary nodules Chronic back pain Smoker Hypertension Family History Family history of problems with anesthesia: No Surgical History Surgical History (Updated 12/23/23 @ 06:48 by Lenore Looney RN) H/O removal of cyst History of hysterectomy H/O hernia repair Previous section History of Problems with Anesthesia: No Social History Social History Household Members: Family Housing: House Are you a primary career services coordinator to a significant other at home: No Do you presently have visiting nurse or other home services: No Patient Tobacco Use Status: Current everyday Tobacco user Tobacco use type: Cigarette Cigarettes Per Day: 3 Years Smoked: 50 Second Hand Smoke Exposure: No Advance Directives Date on File: 12/22/23 service: No Meds Allergies Allergy/AdvReac Type Severity Reaction Status Date / Time No Known Allergies Allergy Verified 12/21/23 12:25 Active Medications: Current Medications Acetaminophen (Acetaminophen 325 Mg Tablet) 650 mg PO Q6H PRN PRN Reason: Pain, Mild (Pain Scale 1-3), fever or headache Albuterol Sulfate (Albuterol Sulfate 90 Mcg 8 Gm Inhaler) 2 puff INHALE Q4H PRN PRN Reason: Shortness Of Breath Atenolol (Atenolol 25 Mg Tablet) 25 mg PO BEDTIME [facility]; Protocol Last Admin: 12/23/23 20:05 Dose: 25 mg Atorvastatin Calcium (Atorvastatin Calcium 20 Mg Tablet) 20 mg PO BEDTIME [facility] Last Admin: 12/23/23 20:05 Dose: 20 mg Heparin Sodium (Porcine) (Heparin Sodium,Porcine 5,000 Unit/Ml Vial) 5,000 unit SUBCUT Q8H [facility] Last Admin: 12/24/23 02:28 Dose: 5,000 unit Piperacillin Sod/Tazobactam (Sod 3.375 gm/ Sodium Chloride) 50 mls @ 100 mls/hr IV Q6H [facility] Last Infusion: 12/24/23 03:03 Dose: Infused Lactated Ringer's (Lr) 1,000 mls @ 80 mls/hr IVCONT .[id number] [facility] Last Admin: 12/23/23 20:51 Dose: 80 mls/hr Lactated Ringer's (Lr) 1,000 mls @ 80 mls/hr IVCONT .[id number] [facility] Last Admin: 12/24/23 06:48 Dose: 80 mls/hr Melatonin (Melatonin 3 Mg Tablet) 6 mg PO BEDTIME PRN PRN Reason: Insomnia Last Admin: 12/23/23 20:51 Dose: 6 mg Morphine Sulfate (Morphine Sulfate 4 Mg/Ml Cartridge) 2 mg IVPUSH Q4H PRN; Protocol PRN Reason: Pain, Severe (Pain Scale 7-10) Ondansetron HCl (Ondansetron Hcl 4 Mg/2 Ml Vial) 4 mg IVPUSH Q8H PRN PRN Reason: Nausea and Vomiting Last Admin: 12/22/23 18:58 Dose: 4 mg Sodium Chloride (0.9 % Sodium Chloride Flush 3 Ml Syringe) 3 ml IVFLUSH QSHIFT [facility] Last Admin: 12/23/23 21:55 Dose: 3 ml Home Medications ?Medication ?Instructions ?Recorded ?Confirmed ?Last Taken ?Type albuterol sulfate 90 mcg/actuation 2 puff inhalation Q4H PRN 12/21/23 12/21/23 Unknown History aerosol inhaler Shortness Of Breath aspirin 81 mg tablet,delayed 81 mg PO BEDTIME 12/21/23 12/21/23 12/20/23 History release atenolol 25 mg tablet 25 mg PO BEDTIME 12/21/23 12/21/23 12/20/23 History atorvastatin 20 mg tablet 20 mg PO BEDTIME 12/21/23 12/21/23 12/20/23 History lisinopril 10 1 tab PO BEDTIME 12/21/23 12/21/23 12/20/23 History mg-hydrochlorothiazide 12.5 mg tablet sulfamethoxazole 800 1 tab PO BID 12/21/23 12/21/23 12/20/23 History mg-trimethoprim 160 mg tablet (Bactrim DS) Exam Height,Weight and Vital Signs: Height 5 ft Weight 68.8 kg Last Vital Signs Temp 97.5 F 12/24/23 06:43 Pulse 60 12/24/23 06:43 Resp 16 12/24/23 06:43 BP 155/71 H 12/24/23 06:43 Pulse Ox 96 12/24/23 06:43 O2 Del Method Room Air 12/24/23 06:43 Pertinent Lab Results Pertinent Lab Results: Laboratory Tests 12/21/23 12/21/23 12/22/23 12:49 16:36 04:46 WBC 16.9 H 14.9 H RBC 3.75 L 3.56 L Hgb 11.2 L 10.1 L Hct 32.8 L 31.0 L MCV 87.5 87.1 MCH 29.9 28.4 MCHC 34.1 32.6 RDW 14.6 14.5 Plt Count 405 H 372 MPV 9.1 L 9.2 L Immature Gran % (Auto) 1.2 H 1.3 H Neut % (Auto) 81.3 H 81.9 H Lymph % (Auto) 11.6 L 10.2 L [place] % (Auto) 5.0 6.2 Eos % (Auto) 0.4 0.1 Baso % (Auto) 0.5 0.3 Lymph # (Auto) 2.0 1.5 [place] # (Auto) 0.9 0.9 Eos # (Auto) 0.1 0.0 Baso # (Auto) 0.1 0.1 Abs Immat Gran (auto) 0.21 H 0.19 H Absolute Neuts (auto) 13.7 H 12.2 H Absolute Nucleated RBC 0.000 0.000 Nucleated RBC % (auto) 0.0 0.0 Sodium 136 136 Potassium 3.9 3.8 Chloride 99 103 Carbon Dioxide 25 20 L Anion Gap 16 17 BUN 11 12 Creatinine 0.93 0.93 Estim Creat Clear Calc 40.1 40.3 Estimated GFR 58 58 Random Glucose 176 H 122 H Lactic Acid 1.1 Calcium 9.0 8.5 Magnesium 1.9 Total Bilirubin 0.2 Direct Bilirubin 0.2 AST 27 ALT 18 Alkaline Phosphatase 123 H C-Reactive Protein 5.21 H Total Protein 7.7 Albumin 3.3 L Lipase 27 Urine Color Dark Yellow Urine Appearance Turbid Urine pH 6.5 Ur Specific [place] 1.010 Urine Protein 30 (1+) H Urine Glucose (UA) Negative Urine Ketones Negative Urine Blood Large (3+) H Urine Nitrite Negative Ur Leukocyte Esterase Large (3+) H Urine RBC >20 H Urine WBC >50 H Ur Squamous Epith Cells 6-10 Urine Bacteria 4+ Hyaline Casts 0-2 Airway Mallampati Class: III TM Dist: <=3cm Neck ROM: Full Denture: Upper and Lower Heart: ok. see echo. Lungs: Mild exp wheeze w diminished BS thruout. Normal exp phase. Given neb in SSS. Assessment and Plan Assessment Anesthesia Assessment: Anesthesia Plan Discussed and Chart Reviewed Final Anesthetic Review Family History of Problems with Anesthesia: No History of Problems with Anesthesia: No NPO: Yes ASA Class: IV Final Preanesthetic Review: No Changes in Pt Med Stat, Meds/Allgs Chart Reviewed, Consent Obtained/Reviewed and Anes Risks/Benef Reviewed Patient Risk: High Procedure Risk: Intermediate Anesthetic Plan Anesthetic Plan: GA and Agree w/ Assess. and Plan Disposition: Standard PACU
--- NOTE | 2023-12-24 09:09 | HO.POSTANES ---
Post Anesthesia Evaluation Post Anesthesia Evaluation Date of Service: 12/23/23 Vital Signs: Vital Signs Temp Pulse Resp BP Pulse Ox O2 Del Method 12/24/23 06:43 97.5 F 60 16 155/71 H 96 Room Air 12/24/23 02:29 96.9 F 61 20 145/64 H 96 Room Air Anesthesia: Monitored Mental Status: Awake Pain Control: Satisfactory Nausea/Vomiting: None Hydration: Adequate Anesthesia-Related Issues: No Anes. Related Issues
[2023-12-24] MEDS: fentaNYL citrate/PF 100 MCG/2 ML VIAL 25 MCG IVPUSH ×4 (09:30→09:50)
--- NOTE | 2023-12-24 09:37 | W.PM.OPN ---
Operative Note Operative Note Date of Service: 12/24/23 Narrative: Operative Note Operative Note Date of Service: 12/24/23 Narrative: Preop diagnosis: Colovaginal fistula Postop diagnosis: The same Procedure: Transverse loop colostomy via a left paramedian incision Surgeon: Cuong Noland MD social service assistant: DAYAN Uribe The patient is an 84-year-old female with a colovaginal fistula. In view of the copious amounts of stool and gas coming out from her vagina, he is scheduled to undergo a transverse loop colostomy. Initially, the plan was to do a hand assisted laparoscopic sigmoid resection and an end-colostomy. However, she was deemed to present with significant risks so we had decided to proceed with just a transverse loop colostomy. She understood the technique of the procedure as well as the risks, benefits, and alternatives She was brought to the operating room. She was placed supine under general anesthesia via endotracheal tube. The abdomen was prepped and draped in the usual sterile fashion. A surgical time-out was done A TAP block had been done by the anesthesiologist I chose to do a left upper quadrant paramedian incision because of her morbid obesity. I made the incision using blade 15. This carried down through the full-thickness of the skin subcutaneous happened electrocautery until we are able to visualize the external oblique aponeurosis. I divided the the anterior sheath and did muscle-splitting to expose the posterior sheath. The posterior sheath was also divided. Retractors were placed. The lesser curvature of the stomach was seen. We proceeded to then carefully look for the transverse colon. She did have large amounts of omentum and visceral fat we had a little bit of difficulty before we are able to find the transverse colon. I had to separate the omentum from the transverse colon with electrocautery carefully. By doing so, I was able to eventually pull up the transverse colon through the incision. I passed a Abbey drain thorugh a small mesenteric defect to achieve this. We carefully exposed this loop of transverse colon via careful dissection with electrocautery to separate the other visceral fat surrounding area. We cauterized oozing areas. I then proceeded to make the fascial incision smaller by applying a running Maxon 1 0 stitch until this opening was snug around the loop of transverse colon without being too tight. I replaced the Abbey drain with a stoma bridge . I closed the skin with sub dermal Polysorb 3-0 sutures. I then proceeded to mature the stoma. I made a transverse incision on the her wall of the loop of transverse colon using electrocautery. We entered the lumen. I then applied a same circumferentially row of 3-0 sutures through the full-thickness of the colon wall to the subdermal layer. The stoma appliance was then positioned. The procedure was completed The patient tolerated the procedure well. There were no immediate complications. Initial final counts of sponges and instruments were correct. Estimated blood loss about 25 cc . The patient was extubated without difficulty and transferred to the recovery room with stable vital signs.
[2023-12-24] MEDS: Albuterol/Iprat 2.5/0.5MG 3 ML AMPUL.NEB INHALE (09:55)
[2023-12-24] MEDS: oxyCODONE HCl Immed Release 5 MG TABLET PO (11:55)
--- NOTE | 2023-12-24 14:02 | PM.EVENT ---
Event Note Date of Service: 12/27/23 Event Note: Seen on afternoon rounds postop Seems to have good pain control Alert and awake Abdomen soft Stoma viable looking with some oozing Doing well overall On IV Ofirmev, morphine, oxycodone p.r.n. pain Await return of GI function On IV antibiotics Doing well on incentive spirometry Family at bedside Time Spent With Patient Time: Total time managing care of this patient today ____ minutes.
[2023-12-24] MEDS: 0.9 % Sodium Chloride Flush 3 ML SYRINGE IVFLUSH (15:50)
[2023-12-24] MEDS: Acetaminophen 1,000 MG/100 ML PIGGYBACK 400 MG IV ×2 (15:54→20:37)
[2023-12-24] MEDS: Atorvastatin Calcium 20 MG TABLET PO (20:00)
[2023-12-24] MEDS: atenoloL 25 MG TABLET PO (20:00)
[2023-12-24] MEDS: Lactated Ringers 1,000 ML 60 ML IVCONT (20:38)
[2023-12-25] VITALS (7 sets, daily range): BP systolic 152–169; BP diastolic 70–74; PULSE 57–69; RESP 16–20; TEMP 36.2–36.8; O2SAT 94–97
[2023-12-25] MEDS: Heparin Sodium,Porcine 5,000 UNIT/ML VIAL 5000 UNIT SUBCUT ×3 (02:37→18:50)
[2023-12-25] MEDS: Piperacillin Sodium/Tazobactam 3.375 GM in 0.9 % Sodium Chloride 50 ML IV ×4 (02:37→20:07)
[2023-12-25] MEDS: Acetaminophen 1,000 MG/100 ML PIGGYBACK 400 MG IV (03:28)
[2023-12-25 06:53] LABS: Anion Gap 12 (12-20); Blood Urea Nitrogen 7 mg/dL (9-16); Calcium 8.7 mg/dL (8.4-10.2); Carbon Dioxide 23 mmol/L (22-29); Chloride 109 mmol/L (96-108); Creatinine Clr Calc Pharmacy 48.1; Estimated Glomerular Filt Rate > 60; Glucose Random 94 mg/dL (60-115); Potassium 3.8 mmol/L (3.3-5.1); Sodium 140 mmol/L (135-145)
[2023-12-25 06:57] LABS: Hematocrit 28.1 % (37.0-47.0); Mean Corpuscular Hemoglobin 28.8 pg (27.0-33.0); Mean Corpuscular Volume 90.1 fL (80.0-98.0); Mean Platelet Volume 9.5 fL (9.4-12.3); Platelet Count 342 X10*3/uL (160-400); Red Blood Count 3.12 X10*6/uL (4.20-5.50); White Blood Count 10.8 X10*3/uL (4.8-10.8)
[2023-12-25] MEDS: 0.9 % Sodium Chloride Flush 3 ML SYRINGE IVFLUSH ×3 (08:17→20:07)
[2023-12-25] MEDS: Acetaminophen 325 MG TABLET 650 MG PO (08:26)
--- NOTE | 2023-12-25 10:24 | PC.NURSE ---
Patient requested to be moved to a different room with more space,patient transferred to [id number] ,charge lpn notified
[2023-12-25] MEDS: guaiFENesin LA 600 MG TAB.ER.12H PO ×2 (10:28→20:07)
--- NOTE | 2023-12-25 11:43 | HO.POSTANES ---
Post Anesthesia Evaluation Post Anesthesia Evaluation Date of Service: 12/25/23 Vital Signs: Vital Signs Temp Pulse Resp BP Pulse Ox O2 Del Method 12/25/23 07:28 98.1 F 57 16 163/71 H 94 Room Air 12/25/23 03:36 97.1 F 62 18 156/74 H 94 Room Air 12/24/23 23:55 97 F 61 16 146/78 H 97 Room Air Anesthesia: General Endotracheal-GETA Mental Status: Awake Pain Control: Satisfactory Nausea/Vomiting: None Hydration: Adequate Anesthesia-Related Issues: No Anes. Related Issues
--- NOTE | 2023-12-25 13:25 | HO.PM.IMPN ---
Subjective Subjective Date of Service: 12/25/23 Interval History: feels better mildly winded no other events overnight Review of Systems Review of Systems: Yes all other systems are reviewed and are negative Physical Exam Vital Signs: Vital Signs: Last Vital Signs Temp 98.1 F 12/25/23 07:28 Pulse 57 12/25/23 07:28 Resp 16 12/25/23 07:28 BP 163/71 H 12/25/23 07:28 Pulse Ox 94 12/25/23 07:28 O2 Del Method Room Air 12/25/23 07:28 O2 Flow Rate 2 12/24/23 10:38 BMI result Body Mass Index 29.6 Const: Other: Constitutional : interactive, not in distress Cardiovascular : no JVP, no lower extremity edema Respiratory : bilateral chest movement, not in resp distress , mild scattered wheezes Gastrointestinal: soft, lax, Non tender, Ostomy in place with no bleeding Skin : Warm, Dry Neurological : Alert & oriented , No focal deficit Objective Data Active Medications Acetaminophen (Acetaminophen 325 Mg Tablet) 650 mg PO Q6H PRN PRN Reason: Pain, Mild (Pain Scale 1-3), fever or headache Last Admin: 12/25/23 08:26 Dose: 650 mg Documented By: DORIS Albuterol Sulfate (Albuterol Sulfate 90 Mcg 8 Gm Inhaler) 2 puff INHALE Q4H PRN PRN Reason: Shortness Of Breath Albuterol/Ipratropium (Albuterol/Iprat 2.5/0.5mg 3 Ml Ampul.Neb) 3 ml INHALE RQ6H WHILE AWAKE [facility] Atenolol (Atenolol 25 Mg Tablet) 25 mg PO BEDTIME [facility]; Protocol Last Admin: 12/24/23 20:00 Dose: 25 mg Documented By: DEV Atorvastatin Calcium (Atorvastatin Calcium 20 Mg Tablet) 20 mg PO BEDTIME [facility] Last Admin: 12/24/23 20:00 Dose: 20 mg Documented By: DEV Guaifenesin (Guaifenesin La 600 Mg Tab.Er.12h) 600 mg PO BID [facility] Last Admin: 12/25/23 10:28 Dose: 600 mg Documented By: DORIS Heparin Sodium (Porcine) (Heparin Sodium,Porcine 5,000 Unit/Ml Vial) 5,000 unit SUBCUT Q8H [facility] Last Admin: 12/25/23 10:16 Dose: 5,000 unit Documented By: DORIS Piperacillin Sod/Tazobactam (Sod 3.375 gm/ Sodium Chloride) 50 mls @ 100 mls/hr IV Q6H [facility] Last Infusion: 12/25/23 09:21 Dose: Infused Documented By: DORIS Lactated Ringer's (Lr) 1,000 mls @ 60 mls/hr IVCONT .[id number] [facility] Last Admin: 12/24/23 20:38 Dose: 60 mls/hr Documented By: DEV Melatonin (Melatonin 3 Mg Tablet) 6 mg PO BEDTIME PRN PRN Reason: Insomnia Last Admin: 12/23/23 20:51 Dose: 6 mg Documented By: NISHANT Morphine Sulfate (Morphine Sulfate 4 Mg/Ml Cartridge) 2 mg IVPUSH Q3H PRN; Protocol PRN Reason: Pain, Severe (Pain Scale 7-10) Naloxone HCl (Naloxone Hcl 0.4 Mg/Ml Vial) 0.04 mg IVPUSH Q5M PRN PRN Reason: Excessive sedation or RR < 8 Ondansetron HCl (Ondansetron Hcl 4 Mg/2 Ml Vial) 4 mg IVPUSH Q8H PRN PRN Reason: Nausea and Vomiting Last Admin: 12/22/23 18:58 Dose: 4 mg Documented By: MICHAEL Oxycodone HCl (Oxycodone Hcl Immed Release 5 Mg Tablet) 5 mg PO Q4H PRN PRN Reason: Pain, Moderate(Pain Scale 4-6) Last Admin: 12/24/23 11:55 Dose: 5 mg Documented By: ANDRÉS Sodium Chloride (0.9 % Sodium Chloride Flush 3 Ml Syringe) 3 ml IVFLUSH QSHIFT [facility] Last Admin: 12/25/23 08:17 Dose: 3 ml Documented By: DORIS Labs 12/25/23 05:54 12/25/23 05:54 Labs: Laboratory Results - last 24 hr 12/25/23 05:54 MCV 90.1 MCH 28.8 MCHC 32.0 RDW 15.0 Plt Count 342 MPV 9.5 Absolute Nucleated RBC 0.000 Nucleated RBC % (auto) 0.0 Anion Gap 12 Estim Creat Clear Calc 48.1 Estimated GFR > 60 Random Glucose 94 Calcium 8.7 Assessment and Plan (1) Pulmonary nodules: Status: Acute (2) Urinary tract infection: Status: Acute Plan Patient is an 83-year-old female with a past medical history significant for hypertension, HLD, possible CAD and current smoker (likely with COPD), consulted for risk stratification for surgery due to possible colovaginal fistula. Plan is for flexible sigmoidoscopy tomorrow to visualize the possible fistula in the sigmoid colon connecting to the vaginal cuff. Likely to have CAD and COPD however diagnoses are unclear per patient. Colovaginal fistula POD 1 tolerating diet Surgery following Bacteruria continue zosyn HTN restart home meds HLD continue atorvastatin CAD continue ASA 81 after procedure COPD vs reactive airway disease Duone[place] Pulmonary nodules found on recent A/P CT Thank you for allowing me to participate in the pt's care. Please contact the medical team if any questions or concerns. Quality Stroke Does the patient have a stroke diagnosis?: No VTE Prior VTE?: No VTE Risk Level:: Medical - moderate - high VTE Device Contraindication: N/A - Device Ordered VTE Drug Contraindication: N/A - Med Ordered
--- NOTE | 2023-12-25 14:59 | P.PNGS_ITS ---
Subjective Subjective Date of Service: 12/25/23 Interval history: Patient was status post loop colostomy. She is doing quite well. She has not had any vaginal discharge. She is tolerating her diet. Ostomy is functioning well Physical Exam 2 Vital Signs: Vital Signs: Last Vital Signs Temp 98.1 F 12/25/23 07:28 Pulse 57 12/25/23 07:28 Resp 16 12/25/23 07:28 BP 163/71 H 12/25/23 07:28 Pulse Ox 94 12/25/23 07:28 O2 Del Method Room Air 12/25/23 07:28 O2 Flow Rate 2 12/24/23 10:38 BMI result Body Mass Index 29.6 GI: Other: Corpulent abdomen. Ostomy with stool, pink viable Objective Data Active Medications Acetaminophen (Acetaminophen 325 Mg Tablet) 650 mg PO Q6H PRN PRN Reason: Pain, Mild (Pain Scale 1-3), fever or headache Last Admin: 12/25/23 08:26 Dose: 650 mg Documented By: DORIS Albuterol Sulfate (Albuterol Sulfate 90 Mcg 8 Gm Inhaler) 2 puff INHALE Q4H PRN PRN Reason: Shortness Of Breath Albuterol/Ipratropium (Albuterol/Iprat 2.5/0.5mg 3 Ml Ampul.Neb) 3 ml INHALE RQ6H WHILE AWAKE [facility] Atenolol (Atenolol 25 Mg Tablet) 25 mg PO BEDTIME [facility]; Protocol Last Admin: 12/24/23 20:00 Dose: 25 mg Documented By: DEV Atorvastatin Calcium (Atorvastatin Calcium 20 Mg Tablet) 20 mg PO BEDTIME [facility] Last Admin: 12/24/23 20:00 Dose: 20 mg Documented By: DEV Guaifenesin (Guaifenesin [place] 600 Mg Tab.Er.12h) 600 mg PO BID [facility] Last Admin: 12/25/23 10:28 Dose: 600 mg Documented By: DORIS Heparin Sodium (Porcine) (Heparin Sodium,Porcine 5,000 Unit/Ml Vial) 5,000 unit SUBCUT Q8H [facility] Last Admin: 12/25/23 10:16 Dose: 5,000 unit Documented By: DORIS Piperacillin Sod/Tazobactam (Sod 3.375 gm/ Sodium Chloride) 50 mls @ 100 mls/hr IV Q6H [facility] Last Infusion: 12/25/23 09:21 Dose: Infused Documented By: DORIS Lactated Ringer's (Lr) 1,000 mls @ 60 mls/hr IVCONT .[id number] [facility] Last Admin: 12/24/23 20:38 Dose: 60 mls/hr Documented By: DEV Melatonin (Melatonin 3 Mg Tablet) 6 mg PO BEDTIME PRN PRN Reason: Insomnia Last Admin: 12/23/23 20:51 Dose: 6 mg Documented By: NISHANT Morphine Sulfate (Morphine Sulfate 4 Mg/Ml Cartridge) 2 mg IVPUSH Q3H PRN; Protocol PRN Reason: Pain, Severe (Pain Scale 7-10) Naloxone HCl (Naloxone Hcl 0.4 Mg/Ml Vial) 0.04 mg IVPUSH Q5M PRN PRN Reason: Excessive sedation or RR < 8 Ondansetron HCl (Ondansetron Hcl 4 Mg/2 Ml Vial) 4 mg IVPUSH Q8H PRN PRN Reason: Nausea and Vomiting Last Admin: 12/22/23 18:58 Dose: 4 mg Documented By: MICHAEL Oxycodone HCl (Oxycodone Hcl Immed Release 5 Mg Tablet) 5 mg PO Q4H PRN PRN Reason: Pain, Moderate(Pain Scale 4-6) Last Admin: 12/24/23 11:55 Dose: 5 mg Documented By: ANDRÉS Sodium Chloride (0.9 % Sodium Chloride Flush 3 Ml Syringe) 3 ml IVFLUSH QSHIFT [facility] Last Admin: 12/25/23 08:17 Dose: 3 ml Documented By: DORIS Labs 12/25/23 05:54 12/25/23 05:54 Labs: Laboratory Results - last 24 hr 12/25/23 05:54 MCV 90.1 MCH 28.8 MCHC 32.0 RDW 15.0 Plt Count 342 MPV 9.5 Absolute Nucleated RBC 0.000 Nucleated RBC % (auto) 0.0 Anion Gap 12 Estim Creat Clear Calc 48.1 Estimated GFR > 60 Random Glucose 94 Calcium 8.7 Procedures Date of Service Date of Service: 12/25/23 Progress Note: A&P Assessment and plan (1) Status post colostomy: Status: Acute Plan Patient is doing well status post loop colostomy. Encourage out of bed, incentive spirometry, diet as tolerated Time Spent With Patient Time: Total time managing care of this patient today ____ minutes. Quality Stroke Does the patient have a stroke diagnosis?: No VTE Prior VTE?: No VTE Risk Level:: Medical - moderate - high VTE Device Contraindication: N/A - Device Ordered VTE Drug Contraindication: N/A - Med Ordered
[2023-12-25] MEDS: Albuterol/Iprat 2.5/0.5MG 3 ML AMPUL.NEB INHALE ×2 (15:21→19:41)
[2023-12-25] MEDS: Lactated Ringers 1,000 ML 60 ML IVCONT (15:42)
[2023-12-25] MEDS: atenoloL 25 MG TABLET PO (20:07)
[2023-12-25] MEDS: Atorvastatin Calcium 20 MG TABLET PO (20:07)
[2023-12-26] VITALS (9 sets, daily range): BP systolic 136–158; BP diastolic 52–82; PULSE 59–69; RESP 14–18; TEMP 36–36.6; O2SAT 92–96
[2023-12-26] MEDS: Heparin Sodium,Porcine 5,000 UNIT/ML VIAL 5000 UNIT SUBCUT ×3 (02:25→17:45)
[2023-12-26] MEDS: Piperacillin Sodium/Tazobactam 3.375 GM in 0.9 % Sodium Chloride 50 ML IV ×4 (02:26→19:53)
[2023-12-26] MEDS: Albuterol/Iprat 2.5/0.5MG 3 ML AMPUL.NEB INHALE ×3 (08:03→20:12)
--- NOTE | 2023-12-26 08:26 | PC.NURSE ---
Patient ready for discharge Dr. Wylie notified via tiger text
[2023-12-26] MEDS: 0.9 % Sodium Chloride Flush 3 ML SYRINGE IVFLUSH ×3 (08:57→19:55)
[2023-12-26] MEDS: guaiFENesin LA 600 MG TAB.ER.12H PO ×2 (09:00→19:54)
--- NOTE | 2023-12-26 09:18 | PC.NURSE ---
large amt of latus emptied from colostomy
[2023-12-26] MEDS: oxyCODONE HCl Immed Release 5 MG TABLET PO (18:45)
[2023-12-26] MEDS: Atorvastatin Calcium 20 MG TABLET PO (19:54)
[2023-12-26] MEDS: atenoloL 25 MG TABLET PO (19:54)
[2023-12-27] MEDS: Piperacillin Sodium/Tazobactam 3.375 GM in 0.9 % Sodium Chloride 50 ML IV ×2 (03:00→09:03)
[2023-12-27] MEDS: Heparin Sodium,Porcine 5,000 UNIT/ML VIAL 5000 UNIT SUBCUT ×2 (03:00→09:03)
[2023-12-27 03:29] VITALS: BP 160/70; PULSE 60; RESP 18; TEMP 36; O2SAT 95
[2023-12-27 07:42] VITALS: PULSE 60; RESP 18; O2SAT 97
[2023-12-27] MEDS: Albuterol/Iprat 2.5/0.5MG 3 ML AMPUL.NEB INHALE (07:42)
[2023-12-27 07:53] VITALS: PULSE 58; RESP 17; TEMP 36.6; O2SAT 95
[2023-12-27 08:11] VITALS: BP 132/70
[2023-12-27] MEDS: guaiFENesin LA 600 MG TAB.ER.12H PO (09:02)
--- NOTE | 2023-12-27 09:07 | P.PNGS_ITS ---
Subjective Subjective Date of Service: 12/27/23 Interval history: Feels well No events over the weekend Tolerating diet Stoma has been functioning well with good output She denies significant pain Has vaginal drainage has resolved Physical Exam 2 Vital Signs: Vital Signs: Last Vital Signs Temp 97.8 F 12/27/23 07:53 Pulse 58 12/27/23 07:53 Resp 17 12/27/23 07:53 BP 132/70 12/27/23 08:11 Pulse Ox 95 12/27/23 07:53 O2 Del Method Room Air 12/27/23 07:53 O2 Flow Rate 2 12/24/23 10:38 BMI result Body Mass Index 29.6 Const: General: comfortable and no acute distress Resp: Other: Mild shortness of breath as baseline Effort & Inspection: normal respiratory effort Cardio: Rate: regular rate GI: Other: Stoma functioning well with good output Palpation (GI): Soft to palpation, not firm, Tenderness to palpation present (GI) and no guarding Objective Data Active Medications Acetaminophen (Acetaminophen 325 Mg Tablet) 650 mg PO Q6H PRN PRN Reason: Pain, Mild (Pain Scale 1-3), fever or headache Last Admin: 12/25/23 08:26 Dose: 650 mg Documented By: DORIS Albuterol Sulfate (Albuterol Sulfate 90 Mcg 8 Gm Inhaler) 2 puff INHALE Q4H PRN PRN Reason: Shortness Of Breath Albuterol/Ipratropium (Albuterol/Iprat 2.5/0.5mg 3 Ml Ampul.Neb) 3 ml INHALE RQ6H WHILE AWAKE [facility] Last Admin: 12/27/23 07:42 Dose: 3 ml Documented By: MANJU Atenolol (Atenolol 25 Mg Tablet) 25 mg PO BEDTIME [facility]; Protocol Last Admin: 12/26/23 19:54 Dose: 25 mg Documented By: FRANCES Atorvastatin Calcium (Atorvastatin Calcium 20 Mg Tablet) 20 mg PO BEDTIME [facility] Last Admin: 12/26/23 19:54 Dose: 20 mg Documented By: FRANCES Guaifenesin (Guaifenesin [place] 600 Mg Tab.Er.12h) 600 mg PO BID [facility] Last Admin: 12/26/23 19:54 Dose: 600 mg Documented By: FRANCES Heparin Sodium (Porcine) (Heparin Sodium,Porcine 5,000 Unit/Ml Vial) 5,000 unit SUBCUT Q8H [facility] Last Admin: 12/27/23 03:00 Dose: 5,000 unit Documented By: FRANCES Piperacillin Sod/Tazobactam (Sod 3.375 gm/ Sodium Chloride) 50 mls @ 100 mls/hr IV Q6H [facility] Last Infusion: 12/27/23 04:22 Dose: Infused Documented By: FRANCES Melatonin (Melatonin 3 Mg Tablet) 6 mg PO BEDTIME PRN PRN Reason: Insomnia Last Admin: 12/23/23 20:51 Dose: 6 mg Documented By: NISHANT Morphine Sulfate (Morphine Sulfate 4 Mg/Ml Cartridge) 2 mg IVPUSH Q3H PRN; Protocol PRN Reason: Pain, Severe (Pain Scale 7-10) Naloxone HCl (Naloxone Hcl 0.4 Mg/Ml Vial) 0.04 mg IVPUSH Q5M PRN PRN Reason: Excessive sedation or RR < 8 Ondansetron HCl (Ondansetron Hcl 4 Mg/2 Ml Vial) 4 mg IVPUSH Q8H PRN PRN Reason: Nausea and Vomiting Last Admin: 12/22/23 18:58 Dose: 4 mg Documented By: MICHAEL Oxycodone HCl (Oxycodone Hcl Immed Release 5 Mg Tablet) 5 mg PO Q4H PRN PRN Reason: Pain, Moderate(Pain Scale 4-6) Last Admin: 12/26/23 18:45 Dose: 5 mg Documented By: DORIS Sodium Chloride (0.9 % Sodium Chloride Flush 3 Ml Syringe) 3 ml IVFLUSH QSHIFT [facility] Last Admin: 12/26/23 19:55 Dose: 3 ml Documented By: FRANCES Labs 12/25/23 05:54 12/25/23 05:54 Microbiology Microbiology Results: Microbiology 12/21/23 16:46 Blood Culture - Final Blood - Venous No growth after 5 days. 12/21/23 16:36 Blood Culture - Final Blood - Venous No growth after 5 days. Procedures Date of Service Date of Service: 12/27/23 Progress Note: A&P Assessment and plan (1) Colovaginal fistula: Status: Acute Assessment and Plan: Status post diverting loop colostomy Doing well I have removed her stoma bridge Stoma functioning well Good oral intake Vaginal drainage has resolved Stoma education Arrange for visiting nurse Possible home today or tomorrow Time Spent With Patient Time: Total time managing care of this patient today ____ minutes. Quality Stroke Does the patient have a stroke diagnosis?: No VTE Prior VTE?: No VTE Risk Level:: Medical - moderate - high VTE Device Contraindication: N/A - Device Ordered VTE Drug Contraindication: N/A - Med Ordered
[2023-12-27 11:53] VITALS: BP 132/76; PULSE 61; RESP 18; TEMP 36.4; O2SAT 96
--- NOTE | 2023-12-27 12:03 | W.MHC.F2F ---
Service Date Service Date: 12/27/23 Encounter Date of encounter: 12/27/23 Reasons for Services Signs and symptoms assessed: pt diagnosed with colovaginal fistula diverting loop colostomy on left upper quadrant Reason for group home: other (stoma care) Homebound: Leaving the home is medically contraindicated at this time without the asist of a device and/or another person due th the listed conditions above and below. Reason homebound: unsteady gait / fall risk Certification: Based on the above findings, I certify that this patient is confined to the home and needs intermittent group home care, physical therapy and/or speech therapy, or continues to need occupational therapy. The patient is under my care, and I have initiated the establishment of the plan of care. The patient will be followed by a physician who will periodically review the plan of care. Time Spent With Patient Time: Total time managing care of this patient today ____ minutes.
--- NOTE | 2023-12-27 12:03 | MHC.CM.PN ---
Addendum entered by Smita Galicia 12/27/23 12:13: [place] [facility] [place] dc meds to patient room at discharge. The Pharmacy was notified of the request. They will deliver the meds once the scripts are filled. Original Note: Per Surgeon discharge anticipated today or tomorrow. Spoke with pt and her 2 dtrs re dc planning. The Patients preference for home services is [facility]. A referral has been sent to the agency. The services will start with 48 hours. The surgeon has been notified that services will start on Wednesday. The patient and family are aware and ok with Wednesday SOC. The patients dtr were present for the ostomy management education. The appliance was changed today. Patient family will provide transport home.
--- NOTE | 2023-12-27 12:11 | PM.EVENT ---
Event Note Date of Service: 12/27/23 Event Note: continues to feel well tolerating diet well stoma functioning looks well stoma education done pt and daughters feel she is ready to be discharged [facility]NA services arranged will see in office for ffup jared maravilla as well Time Spent With Patient Time: Total time managing care of this patient today ____ minutes.
--- NOTE | 2023-12-27 12:16 | HO.OSTOMY ---
Ostomy Consult: Initial Teaching 83yr old female admitted to [facility] on 12/21/23 see H&P for detailed history and admission.? Consult for new ostomy teaching. ?She had a Transverse Loop Colostomy creation on 12/24/[address] Noland. ?Upon entry into patient's room, she is lying in bed, she is alert and oriented x 3, she currently has no complaints. ?Introductions were completed, she is agreeable to continuing with teaching. two daughters present throughout teaching providing support and asking questions. We discussed her pain control at 03/03 at the current moment, she reports increasing the use of her IS and ambulating. ?We began by discussing general knowledge about the Colostomy and questions she had. ?We discussed opening and closing the ostomy pouch. She was able to independently provide a return demonstration on an empty pouch. ?She had not yet emptied her pouch but did observe when staff did so.? We discussed the importance of emptying pouch when 1/3 to 1/2 full, how to empty pouch, and lining water with toilet paper to prevent splash back. With an empty Coloplast pouch she performed a demonstration. She was also educated on when to contact domestic cleaner/Dr Noland's office/seek emergency medical treatment. Patient was given some ostomy pouches for transition to home. Aware that Rx written for pouches and rings will be sent by Outpt nurse to [place] for home delivery.? Reviewed written education with patient and left at bedside for further review. ?She did watch the education videos supplied by [facility] but is aware of where to find them. Permission was granted for pouch assessment and no leak was noted.? Stoma is red and round and seated well above skin level at this time, bridge was removed by Dr. Noland and is noted in side the pouch. Stoma model pouch changed performed. Her pouch was changed she observed the pouch change and had questions that lead to further discussion. Her stoma is red round and above skin level, stoma measured 50mm and coloplast [id number] cut to size used. The inferior incision has some mild erythema noted. No direct oozing noted at this time, may benefit from Durafiber application under pouch wafer at next pouch change. She and her daughters reported having no questions at this time. ?Patient seems to have a good understanding of care and material at this time. ?She will benefit from VNA services at time of discharge. ?All questions and concerns addressed at this time. We discussed the following steps: 1. Empty pouch before pouch change 2. Remove pouch using push/pull technique from top to bottom 3. Cleanse stoma and skin with tap water only - no soap or baby wipes 4. Pat dry 5. Measure stoma and cut new pouch no more than 1/8 inch larger than stoma and no smaller than stoma 6. If instructed by your ostomy nurse stretch barrier seal to the size of the stoma and press onto skin around stoma (up to the edge of the stoma but not onto the stoma) 7. Press the new pouch into place and hold for several minutes (close pouch tail) 8. Empty pouch when 1/3 to 1/2 full 9. Change pouch twice weekly on a schedule (for example, every Wednesday and ) and as needed for any leaking (feels like intense itch or burn at edge of stoma) 10. May order pre-cut pouches (already cut to size of stoma) once stoma measures the same size consistently. ? *The inferior incision has some mild erythema noted. No direct oozing noted at this time, may benefit from Durafiber application under pouch wafer at next pouch change Erum Walker Inpatient Ostomy Nurse [phone]
--- NOTE | 2023-12-27 12:53 | P.DS_ITS ---
DS: Providers Provider Date of Service: 12/27/23 Date of admission: 12/21/23 21:13 Primary care physician: Nighat Chopra MD Attending physician on admission: Cuong Noland Consults: 12/21/23 21:29 Consult to Hospitalist Routine Comment: Consulting Provider: Hospitalist Reason For Exam: HTN, UTI,will need surgery for colovaginal fistula 12/23/23 08:07 Consult to Pulmonology Routine Consulting Provider: [facility] Pulmonology Services Reason for consultation: Optimization of respiratory Pre-OP 12/27/23 09:17 Consult to Ostomy Care Routine Attending physician on discharge: Cuong Noland DS: Diagnosis Discharge Diagnosis (1) Colovaginal fistula: Status: Acute DS: Summary Hospital Course Hospital Course: HPI AT ADMISSION: July Shannan is a 83 year old female 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 She was in her usual state of health until about 5 days ago when she noticed stool and gas coming out of her vagina. She went to an urgent care center in [place] where she was pending the weekend. She was told she had a urinary tract infection and was given Bactrim. However, she had noted persistence of stool and gas coming out from her vagina especially with bowel movements. She therefore decided to come to the ER last night. She denies any dysuria. She denies any abdominal pain. She does not recall having been told sh adebayo had diverticular disease in the past. She has known hypertension and is an active smoker. She is not very active in view of her chronic back pain. She has had 3 C sections, and had a hysterectomy in the distant past. She says she had history and oophorectomy because of dysfunctional bleeding then. She had a hernia repaired as well many years ago. She denies any fever or chills. CAT scan shows colovaginal fistula without drainable abscess in the area with no significant acute inflammatory changes noted in the area, no obvious lesions or masses. HOSPITAL COURSE: She was admitted to the surgical service for further treatment of the diverticulitis, colovaginal fistula. It was recommended to proceed with sigmoid resection and likely colostomy for definitive treatment of the fistula with plan for flexible sigmoidoscopy prior to examine the area and see if any neoplastic process is present that may dictate the plan of care and extent of dissection. She states she is up-to-date with her colonoscopies and had the last colonoscopy probably when she was 76 and was normal. She says that everything was ?normal? at that time. She was kept on fluids, on IV zosyn. She did also have a UTI present on admission which was covered by the current antibiotic therapy. Hospitalist service was consulted in light of her medical issues and for risk stratification for surgery. Patient had extensive smoking history and likely with undiagnosed COPD. She was incidentally found to have pulmonary nodules on recent A/P CT. Pulmonology was consulted who recommend outpatient follow-up for evaluation, dedicated chest CT. Preoperatively echocardiogram was performed as requested by anesthesia which was discussed with the cad specialist, good EF. On 12/23/23, Flexible sigmoidoscopy up to [address] Noland. No lesions were noted. Lengthy discussion took place with anesthesia who had major concerns with regards to pulmonary and cardiac functions. It was therefore recommended to patient and family to perform diverting loop colostomy from the transverse colon as it is quicker procedure with much less perioperative risks. They agreed. This was planned for the following day. On 12/24/23, transverse loop colostomy via a left paramedian incision was performed by Dr. Noland without complication. The patient tolerated the procedure well. She was started on a regular diet following. She had an uncomplicated recovery course. Her pain was well controlled. Her vaginal drainage resolved. Her ostomy began functioning with stool output. She was tolerating a solid diet without nausea or vomiting. Her abdomen was benign with viable appearing ostomy and her bridge was removed on POD #3. Ostomy teaching was performed. On 12/27/23, she was discharged to home with VNA services in stab le condition. She was discharged to home on a PO course of Augmentin. She is to follow up in the office with Dr. Noland in 2 weeks. She is to follow up with Pulmonology. Status at Discharge Overall status at discharge: patient is progressing back to baseline Time Attestation Discharge Coordination Time (in mins): 40 Quality: Safe Use of Opioids Does Pt have an Active Cancer Diagnosis on the Problem List?: No Quality: Stroke Does the patient have a stroke diagnosis?: No Physical Exam Vital Signs: Vital Signs: Last Vital Signs Temp 97.5 F 12/27/23 11:53 Pulse 61 12/27/23 11:53 Resp 18 11/04/24 11:53 BP 132/76 12/27/23 11:53 Pulse Ox 96 12/27/23 11:53 O2 Del Method Room Air 12/27/23 11:53 O2 Flow Rate 2 12/24/23 10:38 BMI result Body Mass Index 29.6 Discharge Plan Discharge Anticipated Discharge Date/Time: 12/27/23 12:04 Patient Disposition: Home Health Service Discharge Diagnosis: colovaginal fistula Referrals: Nighat Chopra MD [Primary Care Provider] - 1 Week Cuong Noland MD [Physician] - 2 Weeks Joe Del Valle MD [Physician] - 2 Weeks (pulmonary nodules) Discharge Medications: New oxycodone-acetaminophen [Percocet] 5-325 mg tablet 1 tab PO Q4-6H PRN (Reason: pain) Qty: 15 0RF Rx Instructions: Partial Fill upon patient request. amoxicillin-pot clavulanate 875-125 mg tablet 1 tab PO BID Qty: 10 0RF Continued atorvastatin 20 mg tablet 20 mg PO BEDTIME atenolol 25 mg tablet 25 mg PO BEDTIME lisinopril-hydrochlorothiazide 10-12.5 mg tablet 1 tab PO BEDTIME albuterol sulfate 90 mcg/actuation HFA aerosol inhaler 2 puff inhalation Q4H PRN (Reason: Shortness Of Breath) aspirin 81 mg Tablet,Delayed Release (Dr/Ec) 81 mg PO BEDTIME Discontinued sulfamethoxazole-trimethoprim [Bactrim DS] 800-160 mg Tablet 1 tab PO BID Rx Instructions: End date 12/25/23 Discharge Orders: Discharge Order (Routine); Ordered 12/27/23 Ordered By: Cuong Noland Activity on Discharge: No heavy lifting Stand Alone Forms: Patient Portal Discharge page Print Language: Yoruba Activity Restrictions/Additional Instructions: Ostomy recommendations: 1. Empty pouch before pouch change 2. Remove pouch using push/pull technique from top to bottom 3. Cleanse stoma and skin with tap water only - no soap or baby wipes 4. Pat dry 5. Measure stoma and cut new pouch no more than 1/8 inch larger than stoma and no smaller than stoma 6. If instructed by your ostomy nurse stretch barrier seal to the size of the stoma and press onto skin around stoma (up to the edge of the stoma but not onto the stoma) 7. Press the new pouch into place and hold for several minutes (close pouch tail) 8. Empty pouch when 1/3 to 1/2 full 9. Change pouch twice weekly on a schedule (for example, every Wednesday and ) and as needed for any leaking (feels like intense itch or burn at edge of stoma) 10. May order pre-cut pouches (already cut to size of stoma) once stoma measures the same size consistently. ? *The inferior incision has some mild erythema noted. No direct oozing noted at this time, may benefit from Durafiber application under pouch wafer at next pouch change Erum Walker Inpatient Ostomy Nurse [phone] Care Plan Goals: return to baseline Health Concerns: colovaginal fistula, s/p stoma COPD Plan of Treatment: stoma care Assessment: doing well
== END 2023-12-27 13:36 | disposition home health service (06) | DRG 330 ==
LOC: HO.ED 20:59 → HO.EDOVER 21:20 → HO.S3 12-22 00:15
PROVIDERS: Physician Assistant; Student in an Organized Health Care Education/Training Program; Admitting Provider Student in an Organized Health Care Education/Training Program; Emergency Provider Emergency Medicine; PCP Internal Medicine; Visit Provider Surgery
PROC: 0DJD8ZZ Inspection of Lower Intestinal Tract, Via Natural or Artificial Opening Endoscopic (ICD-10-PCS; CPT 45330; principal; 2023-12-23 07:30)
PROC: 0D1L0Z4 Bypass Transverse Colon to Cutaneous, Open Approach (ICD-10-PCS; CPT 44320; principal; 2023-12-24 07:30)
DX: N82.3 Fistula of vagina to large intestine (principal); K57.32 Diverticulitis of large intestine without perforation or abscess without bleeding; N39.0 Urinary tract infection, site not specified; I10 Essential (primary) hypertension; E78.5 Hyperlipidemia, unspecified; I25.10 Atherosclerotic heart disease of native coronary artery without angina pectoris; G89.18 Other acute postprocedural pain; E66.01 Morbid (severe) obesity due to excess calories; Z68.29 Body mass index [BMI] 29.0-29.9, adult; R91.8 Other nonspecific abnormal finding of lung field; J44.9 Chronic obstructive pulmonary disease, unspecified; F17.210 Nicotine dependence, cigarettes, uncomplicated; Z71.6 Tobacco abuse counseling; Z79.82 Long term (current) use of aspirin; Z79.899 Other long term (current) drug therapy
CPT/HCPCS: 36415; 71250; 74177; 80048; 80076; 81001; 83605; 83690; 83735; 85025; 85027; 86140; 87040; 87086; 93005; 93306; 94640; 99285; J0131; J0171; J1100; J1171; J1644; J2003; J2250; J2371; J2405; J2543; J2704; J2795; J3010; J7120; Q9957; Q9967

== ENCOUNTER 2023-12-21 21:13 | Outpatient (BNV) | payer MEDICARE, SELFPAY | END 2023-12-23 09:56 | PROVIDERS: Admitting Provider Student in an Organized Health Care Education/Training Program; Emergency Provider Emergency Medicine; PCP Internal Medicine; Visit Provider Radiology Diagnostic Radiology | DX: R91.8 Other nonspecific abnormal finding of lung field (principal) | CPT/HCPCS: 71250 ==

== ENCOUNTER 2023-12-21 21:13 | Outpatient (BNV) | payer MEDICARE, SELFPAY | END 2023-12-23 07:00 | PROVIDERS: Admitting Provider Student in an Organized Health Care Education/Training Program; Emergency Provider Emergency Medicine; PCP Internal Medicine; Visit Provider Internal Medicine | DX: I42.2 Other hypertrophic cardiomyopathy (principal); I35.8 Other nonrheumatic aortic valve disorders; I36.1 Nonrheumatic tricuspid (valve) insufficiency; I27.20 Pulmonary hypertension, unspecified | CPT/HCPCS: 93306 ==

== ENCOUNTER 2023-12-21 21:13 | Outpatient (BNV) | payer MEDICARE, SELFPAY | END 2023-12-22 11:19 | PROVIDERS: Admitting Provider Student in an Organized Health Care Education/Training Program; Emergency Provider Emergency Medicine; PCP Internal Medicine; Visit Provider Internal Medicine | DX: I45.2 Bifascicular block (principal); R94.31 Abnormal electrocardiogram [ECG] [EKG] | CPT/HCPCS: 93010 ==

== ENCOUNTER → 2023-12-21 21:13 | Outpatient (BNV) | payer MEDICARE, SELFPAY | PROVIDERS: Admitting Provider Student in an Organized Health Care Education/Training Program; Emergency Provider Emergency Medicine; PCP Internal Medicine; Visit Provider Hospitalist | DX: F17.200 Nicotine dependence, unspecified, uncomplicated (principal); R91.8 Other nonspecific abnormal finding of lung field; N82.4 Other female intestinal-genital tract fistulae | CPT/HCPCS: 99223 ==

== ENCOUNTER → 2023-12-21 21:13 | Outpatient (BNV) | payer MEDICARE, SELFPAY | PROVIDERS: Admitting Provider Student in an Organized Health Care Education/Training Program; Emergency Provider Emergency Medicine; PCP Internal Medicine; Visit Provider Physician Assistant | DX: R91.8 Other nonspecific abnormal finding of lung field (principal); N39.0 Urinary tract infection, site not specified | CPT/HCPCS: 99222; 99232 ==

== ENCOUNTER → 2023-12-21 21:13 | Outpatient (BNV) | payer MEDICARE, SELFPAY | PROVIDERS: Admitting Provider Student in an Organized Health Care Education/Training Program; Emergency Provider Emergency Medicine; PCP Internal Medicine; Visit Provider Surgery | DX: Z93.3 Colostomy status (principal) | CPT/HCPCS: 44320; 45330; 99024; 99223; 99499; G0180 ==

== ENCOUNTER → 2024-01-05 12:57 | Outpatient (BNVA) | payer MEDICARE, SELFPAY | PROVIDERS: PCP Internal Medicine; Visit Provider Surgery | DX: Z43.4 Encounter for attention to other artificial openings of digestive tract (principal) | CPT/HCPCS: 99211 ==

== ENCOUNTER 2024-01-06 13:28 | Outpatient (AMB) | payer MEDICARE, SELFPAY ==
--- NOTE | 2024-01-06 13:36 | A.OFFVIS_ITS ---
Vital Signs 01/06/24 13:48 Height 5 ft BP 126/56 L Blood Pressure Location Rt brachial Position Sitting Pulse 69 Intake Visit Reasons: s/p colovaginal fistula Intake Note: This patient presents for post-op assessment status post transverse loop colostomy via a left paramedian incision. Pt c/o; reports it has been leaking everyday . Production Control Manager Required: No Accompanied by: Other Relationship Allergies No Known Allergies Allergy (Verified 01/10/24 11:08) HPI HPI s/p colovaginal fistula: Details: The patient was seen by our office nurse Xavier GENAO Medical History Pulmonary nodules Chronic back pain Smoker Hypertension Surgical History (Updated 01/13/24 @ 13:57 by CHAUNCEY Suazo) Hx of surgical procedure (~12/24/23) H/O removal of cyst History of hysterectomy H/O hernia repair Previous section Social History Household Members: Family Housing: House Are you a primary career transition specialist to a significant other at home: No Do you presently have visiting nurse or other home services: No Comment: rings appropriately Patient Tobacco Use Status: Current everyday Tobacco user Tobacco use type: Cigarette Cigarettes Per Day: 3 Years Smoked: 50 Second Hand Smoke Exposure: No Advance Directives Date on File: 12/22/23 service: No Physical Exam Vital Signs: Last Vital Signs Pulse 69 01/06/24 13:48 BP 126/56 L 01/06/24 13:48 Assessment & Plan Assessment & Plan (1) Status post colostomy: Code(s): Z93.3 - Colostomy status Category: Medical Plan: The patient was seen by our office nurse Xavier Coding Level of Care Code Global (39927) Diagnoses Status post colostomy Z93.3
[2024-01-06 13:48] VITALS: BP 126/56; PULSE 69
== END 2024-01-06 14:27 | disposition home or self-care (01) ==
PROVIDERS: PCP Internal Medicine; Visit Provider Surgery
DX: Z93.3 Colostomy status (principal)
CPT/HCPCS: 99024

== ENCOUNTER → 2024-01-06 13:28 | Outpatient (BNVA) | payer MEDICARE, SELFPAY | PROVIDERS: PCP Internal Medicine; Visit Provider Surgery | DX: K94.09 Other complications of colostomy (principal); Z48.815 Encounter for surgical aftercare following surgery on the digestive system | CPT/HCPCS: 99212 ==

== ENCOUNTER 2024-01-10 10:59 | Outpatient (AMB) | payer MEDICARE, SELFPAY ==
--- NOTE | 2024-01-10 11:07 | A.OFFVIS_ITS ---
Vital Signs 01/10/24 11:18 Height 5 ft Weight 149 lb BMI 29.1 BP 113/55 L Blood Pressure Location Rt brachial Position Sitting Pulse 66 Intake Visit Reasons: Incision check Intake Note: This patient presents for wound check, Transverse loop colostomy via a left paramedian incision. Pt c/o;reports no changes. 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 She was deemed to be a I surgical risk because of multiple medical problems at that time She is here for follow-up. She does have some skin irritation around the stoma as she has had frequent leakage from her appliance. She otherwise feels well overall. She has had good oral intake. She has had good function with a stoma. She denies any significant fecal drainage from her vagina anymore. [facility] Medical History Pulmonary nodules Chronic back pain Smoker Hypertension Surgical History H/O removal of cyst History of hysterectomy H/O hernia repair Previous section Social History Household Members: Family Housing: House Are you a primary career guidance technician to a significant other at home: No Do you presently have visiting nurse or other home services: No Comment: rings appropriately Patient Tobacco Use Status: Current everyday Tobacco user Tobacco use type: Cigarette Cigarettes Per Day: 3 Years Smoked: 50 Second Hand Smoke Exposure: No Advance Directives Date on File: 12/22/23 service: No Review of Systems Const Denies chills and Denies fever(s) Card Reports dyspnea on exertion Resp Reports cough and Reports dyspnea on exertion GI Denies abdominal pain Physical Exam Vital Signs: Last Vital Signs Pulse 66 01/10/24 11:18 BP 113/55 L 01/10/24 11:18 BMI result Body Mass Index 29.1 Const General: comfortable and no acute distress Resp Effort & Inspection: normal respiratory effort GI Other: Loop colostomy healthy looking, with note of irritation on the surrounding skin; some skin separation on her incision Palpation (GI): Soft to palpation, not firm, nontender and no guarding Assessment & Plan Assessment & Plan (1) Status post colostomy: Code(s): Z93.3 - Colostomy status Category: Surgical Plan: She has had problems with her colostomy staying in place with subsequent 2nd leakage of stool. She therefore has had this dalton stoma skin irritation. Our stoma nurse Xavier has changed her appliance and applied a ring to keep the stoma in place for longer. We will figure out a way as to make sure that her stoma appliance stays longer without leaking I therefore told her and her daughter that she can come back to the office if she continues to have problems with this. Coding Level of Care Code Global (57068) Diagnoses Status post colostomy Z93.3
[2024-01-10 11:18] VITALS: BP 113/55; PULSE 66; BMI 29.1
== END 2024-01-10 11:50 | disposition home or self-care (01) ==
PROVIDERS: PCP Internal Medicine; Visit Provider Surgery
DX: Z93.3 Colostomy status (principal)
CPT/HCPCS: 99024

== ENCOUNTER → 2024-01-10 10:59 | Outpatient (BNVA) | payer MEDICARE, SELFPAY | PROVIDERS: PCP Internal Medicine; Visit Provider Surgery | DX: Z93.3 Colostomy status (principal) | CPT/HCPCS: 99212 ==

== ENCOUNTER → 2024-01-14 10:37 | Outpatient (BNVA) | payer MEDICARE, SELFPAY | PROVIDERS: PCP Internal Medicine; Visit Provider Surgery | DX: N82.4 Other female intestinal-genital tract fistulae (principal); Z93.3 Colostomy status | CPT/HCPCS: 99211 ==

== ENCOUNTER 2024-01-18 14:51 | Outpatient (AMB) | payer MEDICARE, SELFPAY ==
[2024-01-18 15:08] VITALS: BP 120/62; PULSE 69; O2SAT 99; BMI 29.1
--- NOTE | 2024-01-18 15:08 | MHC.OFFVIS ---
Vital Signs 01/18/24 15:08 Height 5 ft Weight 148 lb 12.992 oz BMI 29.1 BP 120/62 Blood Pressure Location Lt brachial Position Sitting Pulse 69 Pulse Oximetry (%) 99 Oxygen Delivery Method Room Air Intake Visit Reasons: pulmonary nodule Director Life Required: No Fitness And Wellness Instructor: Fitness And Wellness Instructor offered & declined Accompanied by: Daughter Allergies No Known Allergies Allergy (Verified 01/18/24 15:12) Medication List - Last Reconciled 01/18/24 by Mayuri Berry LPN albuterol sulfate 90 mcg/actuation 2 puffs inhalation Q4H PRN amoxicillin-pot clavulanate 875-125 mg 1 tab PO BID aspirin 81 mg PO BEDTIME atenolol 25 mg PO BEDTIME atorvastatin 20 mg PO BEDTIME fluconazole 150 mg PO DAILY 3 days lisinopril-hydrochlorothiazide 10-12.5 mg 1 tab PO BEDTIME oxycodone-acetaminophen 5-325 mg (Percocet) 1 tab PO Q4-6H PRN HPI Comments Details: The patient is an 83-year-old female with a past medical history significant for current smoker (likely with COPD) presenting with a possible colovaginal fistula. Plan is for flexible sigmoidoscopy tomorrow to visualize the possible fistula in the sigmoid colon connecting to the vaginal cuff. This was seen on a recent CT after patient reported to the ED with passing gas and stool vaginally and a UTI. She reports that she does have an inhaler for an unknown reason, she is a smoker, and often wheezes in the morning. The patient had a CT scan of the abdomen which I personally reviewed. There was about a cm nodular density in the left lower lobe and a small subcentimeter nodule in the right lower lobe. Again this is limited just to the lower lung cuts of the abdominal CT scan. And she does need a formal CT scan of the chest. 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 I did recommend that the patient gets treated for the active issues and when she is discharged she undergoes a CT scan of the chest deformity follow-up with their findings. In the meantime she does smoke. 01/18/2024 the patient is here for a pulmonary hospital follow-up visit. Apparently the patient was admitted and underwent a CT scan of the abdomen with a found that nodular density. She ultimately underwent a CT scan of the chest which I personally reviewed. I did review with her. This CT scan was done in 12/12/2023. She does have a 12 mm pulmonary nodule in the left lower lobe which appears to be smooth border. In addition to that she has more irregular subsolid irregular nodular density measuring around 10 mm in size. The patient is a smoker and therefore she is a high-risk for cancer. She also has significant atherosclerosis. No significant emphysema although she does have evidence of chronic bronchitis. The patient does have a rescue inhaler that she does not have to use it. She did complete a course of Augmentin because of another infection. Therefore, be reasonable to place her on Wixela. She can use it once a day with the hope that this right upper lobe area is more inflammatory. She can use Wixela daily. And then will plan to repeat the CT scan 3 months from her last 1. Then will follow-up. If this area is persistent in changing then will talk about further diagnostic interventions. Otherwise will follow-up then. Depending on the findings in the CT scan will decide if she needs a CT scan. Right now she is not ready to quit smoking. But she is consider cutting down some. [facility] Medical History Pulmonary nodules Chronic back pain Smoker Hypertension Surgical History (Updated 01/13/24 @ 13:57 by Mona Ellison Socorro) Hx of surgical procedure (~12/24/23) H/O removal of cyst History of hysterectomy H/O hernia repair Previous section Social History Household Members: Family Housing: House Are you a primary health care marketing manager to a significant other at home: No Do you presently have visiting nurse or other home services: No Comment: rings appropriately Patient Tobacco Use Status: Current everyday Tobacco user Tobacco use type: Cigarette Cigarettes Per Day: 3 Years Smoked: 50 Second Hand Smoke Exposure: No Advance Directives Date on File: 12/22/23 service: No Review of Systems Const Denies chills and Denies fever(s) ENT Reports nasal congestion Card Denies chest pain and Reports dyspnea on exertion Resp Reports cough, Reports dyspnea on exertion and Denies wheezing GI Denies abdominal pain Musc Reports myalgias Skin/Breast Denies rash Fei/Lymph Reports no additional complaints Aller/Immun Denies wheezing Physical Exam Vital Signs: Last Vital Signs Pulse 69 01/18/24 15:08 BP 120/62 01/18/24 15:08 Pulse Ox 99 01/18/24 15:08 Oxygen Delivery Method Room Air 01/18/24 15:08 BMI result Body Mass Index 29.1 Last Vital Signs Temp 98.3 F 12/23/23 08:10 Pulse 63 12/23/23 08:10 Resp 16 12/23/23 08:10 BP 125/46 L 12/23/23 08:10 Pulse Ox 94 12/23/23 08:10 O2 Del Method Room Air 12/23/23 08:10 BMI result Body Mass Index 29.6 Const General: comfortable HEENT Head: Yes normocephalic Neck Neck: Yes supple Chest Chest palpation & inspection: normal inspection of the chest Resp Effort & Inspection: normal respiratory effort Auscultation: diminished lung sounds Cardio Heart sounds: S1 normal heart sound present and S2 normal heart sound present GI Palpation (GI): Soft to palpation Skin General skin exam: no rashes or lesions noted Extrem General: No clubbing and No cyanosis Assessment & Plan Assessment & Plan (1) Pulmonary nodules: Code(s): R91.8 - Other nonspecific abnormal finding of lung field Category: Medical (2) Smoker: Code(s): F17.200 - Nicotine dependence, unspecified, uncomplicated Category: Medical Plan start Wixela daily CT chest in 2 months Tobacco cessation: pt is not ready to quit. usually cuts down in the winter consider PFTs F/U in 2-3 months Orders: Orders CT chest wo IV con 2 Months R91.8 - Other nonspecific abnormal finding of lung field Medications: New fluticasone propion-salmeterol 250-50 mcg/dose (Wixela Inhub) 1 inh inhalation Q12H 60 ea 1RF 30 days Coding Level of Care Code Est Pt Level 5 (49107) Diagnoses Pulmonary nodules R91.8 Smoker F17.200 Time Spent (min) 40
== END 2024-01-18 15:39 | disposition home or self-care (01) ==
PROVIDERS: PCP Internal Medicine; Visit Provider Hospitalist
DX: R91.8 Other nonspecific abnormal finding of lung field (principal); F17.210 Nicotine dependence, cigarettes, uncomplicated
CPT/HCPCS: 99215

== ENCOUNTER → 2024-01-18 14:51 | Outpatient (BNVA) | payer MEDICARE, SELFPAY | PROVIDERS: PCP Internal Medicine; Visit Provider Hospitalist | DX: R91.8 Other nonspecific abnormal finding of lung field (principal); F17.210 Nicotine dependence, cigarettes, uncomplicated | CPT/HCPCS: 99212 ==

== ENCOUNTER 2024-01-19 10:51 | Outpatient (AMB) | payer MEDICARE, SELFPAY ==
--- NOTE | 2024-01-19 10:52 | MHC.OFFVIS ---
Vital Signs 01/19/24 10:55 Height 5 ft Weight 148 lb 12.992 oz BMI 29.1 Intake Visit Reasons: sp colovaginal fistula Intake Note: This patient presents for Transverse loop colostomy via a left paramedian incision. Pt c/o; reports no complaints. Control Systems Eng Required: No Accompanied by: Self / Same As Patient Allergies No Known Allergies Allergy (Verified 01/19/24 10:56) HPI HPI sp colovaginal fistula: Details: She continues to do well. She says she just wants her stoma appliance checked. She says this is finally staying longer periods of time. She says this was last changed 2 days ago. She has good stoma function. PFSH Medical History Pulmonary nodules Chronic back pain Smoker Hypertension Surgical History Hx of surgical procedure (~12/24/23) H/O removal of cyst History of hysterectomy H/O hernia repair Previous section Social History Household Members: Family Housing: House Are you a primary palliative care nurse practitioner to a significant other at home: No Do you presently have visiting nurse or other home services: No Comment: rings appropriately Patient Tobacco Use Status: Current everyday Tobacco user Tobacco use type: Cigarette Cigarettes Per Day: 3 Years Smoked: 50 Second Hand Smoke Exposure: No Advance Directives Date on File: 12/22/23 service: No Review of Systems Const Denies chills and Denies fever(s) Card Denies chest pain GI Denies abdominal pain Physical Exam Vital Signs: BMI result Body Mass Index 29.1 Const General: comfortable and no acute distress Resp Effort & Inspection: normal respiratory effort GI Other: Stoma functioning well, peristomal skin changes are improving, no signs of infection Assessment & Plan Assessment & Plan (1) Status post colostomy: Code(s): Z93.3 - Colostomy status Category: Surgical Plan: She is doing much better. She says that she does not have much discharge from the vagina anymore I changed her stoma appliance. The skin breakdown has improved significantly. She has a visiting nurse taking care of our stoma appliance. She can follow up on a p.r.n. basis. Coding Level of Care Code Global (77809) Diagnoses Status post colostomy Z93.3
[2024-01-19 10:55] VITALS: BMI 29.1
== END 2024-01-19 11:35 | disposition home or self-care (01) ==
PROVIDERS: PCP Internal Medicine; Visit Provider Surgery
DX: Z93.3 Colostomy status (principal)
CPT/HCPCS: 99024

== ENCOUNTER → 2024-01-19 10:51 | Outpatient (BNVA) | payer MEDICARE, SELFPAY | PROVIDERS: PCP Internal Medicine; Visit Provider Surgery | DX: Z93.3 Colostomy status (principal) | CPT/HCPCS: 99212 ==

== ENCOUNTER 2024-02-21 00:32 | Emergency (ER) | payer MEDICARE, SELFPAY ==
--- NOTE | ~2024-02-21 | CT_ITS ---
CLINICAL HISTORY: unwitness fall, lac to forehead CT head without contrast Comparison: None Findings: No intra-axial mass, midline shift, or hydrocephalus. 7 mm deep isodense extra-axial fluid collection in the right squamous temporal region. Nonspecific white matter hypodensity is present with mild volume loss. Mucosal thickening is present within the right sphenoid sinus with chronic sclerotic wall thickening. Mastoid air cells are clear. The orbits are unremarkable. There is no acute fracture. IMPRESSION: 7 mm deep focal isodense extra-axial fluid collection in the right temporal region concewrning for small subdural hematoma. This document has been electronically signed by: Baldemar Cantu MD, PHD on 02/21/2024 05:05:49
--- NOTE | ~2024-02-21 | CT_ITS ---
CLINICAL HISTORY: fall CT cervical spine without contrast Comparison: None Findings: Motion artifact degrades the provided images limiting interpretation. There is grade 1 anterolisthesis of C3 on C4. Multilevel cervical spine degenerative changes are present, characterized by disc height loss, endplate sclerosis and disc osteophyte complex formation. No acute fractures or dislocations. No acute findings on limited view of the intracranial contents. No cervical fluid collections or masses. No consolidation or effusion at the lung apices. IMPRESSION: No acute findings. This document has been electronically signed by: Baldemar Cantu MD, PHD on 02/21/2024 06:44:38
[2024-02-21 00:37] VITALS: BP 135/53; PULSE 66; RESP 20; TEMP 36.6; O2SAT 95; BMI 30.6
--- NOTE | 2024-02-21 00:44 | ECG_ITS ---
Test Reason : FALL Blood Pressure : / mmHG Vent. Rate : 066 BPM Atrial Rate : 066 BPM P-R Int : 208 ms QRS Dur : 120 ms QT Int : 432 ms P-R-T Axes : 072 -43 -03 degrees QTc Int : 452 ms Normal sinus rhythm Left axis deviation Right bundle branch block Minimal voltage criteria for LVH, may be normal variant ( R in aVL ) Abnormal ECG When compared with ECG of 22-DEC-2023 11:19, Nonspecific T wave abnormality, worse in Inferior leads Referred By: Generic ED Physician Electronically Signed By:EVELIA KIDD MD
[2024-02-21 00:58] LABS: MANUAL DIFF FLAG NO
[2024-02-21 00:59] LABS: Basophils Absolute Auto 0.1 X10*3/uL (0.0-0.2); Basophils Percent Auto 0.5 % (0-2); Eosinophils Absolute Auto 0.1 X10*3/uL (0.0-0.4); Eosinophils Percent Auto 1.2 % (0-4); Hematocrit 35.6 % (37.0-47.0); Hemoglobin 11.7 g/dl (12.0-16.0); Imm Gran Abs Auto 0.06 X10*3/uL (0.00-0.03); Imm Gran Pct Auto 0.6 % (0.0-0.4); Lymphocytes Absolute Auto 2.9 X10*3/uL (1.2-4.9); Lymphocytes Percent Auto 27.5 % (20-40); Mean Corpuscular HGB Conc 32.9 g/dl (31.0-35.0); Mean Corpuscular Hemoglobin 28.9 pg (27.0-33.0); Mean Corpuscular Volume 87.9 fL (80.0-98.0); Mean Platelet Volume 10.1 fL (9.4-12.3); Monocytes Percent Auto 9.9 % (2-11); Neutrophils Absolute Auto 6.3 x10*3/uL (2.0-8.3); Neutrophils Percent Auto 60.3 % (45-73); Platelet Count 291 X10*3/uL (160-400); Red Blood Count 4.05 X10*6/uL (4.20-5.50); Red Cell Distribution Width 15.7 % (11.0-16.0); White Blood Count 10.5 X10*3/uL (4.8-10.8)
[2024-02-21 01:12] LABS: Anion Gap 15 (12-20); Blood Urea Nitrogen 13 mg/dL (9-16); Calcium 9.6 mg/dL (8.4-10.2); Carbon Dioxide 24 mmol/L (22-29); Chloride 105 mmol/L (96-108); Creatinine Clr Calc Pharmacy 48.9; Estimated Glomerular Filt Rate > 60; Glucose Random 133 mg/dL (60-115); Potassium 3.8 mmol/L (3.3-5.1); Sodium 140 mmol/L (135-145)
--- NOTE | 2024-02-21 01:52 | PC.NURSE ---
chargemaster analyst made aware that the pt forhead is hurting more now.
[2024-02-21 02:51] VITALS: BP 140/74; PULSE 60; RESP 16; TEMP 36.7; O2SAT 97
[2024-02-21] MEDS: Acetaminophen 325 MG TABLET 975 MG PO (04:41)
--- NOTE | 2024-02-21 05:47 | ED.FALL ---
HPI - Fall General Chief Complaint: Fall Stated Complaint: Fell, forehead laceration Time Seen by Provider: 02/21/24 05:09 Source: patient Mode of arrival: ambulatory Limitations: no limitations History of Present Illness ED Provider: Dr. Antonia Hodge HPI Narrative: Patient comes to the emergency room complaining of a fall. Patient states that around midnight patient got up to the fall, had a mechanical fall, tripped, hit her head against the corner of a nightstand and now has a laceration. Patient states that other than the laceration has she has no other complaints. Denies neck pain no other injuries. Patient able to walk. Patient denies headache. Patient is not on blood thinners. Related Data Home Medications ?Medication ?Instructions ?Recorded ?Confirmed albuterol sulfate 90 mcg/actuation 2 puff inhalation Q4H PRN 12/21/23 01/18/24 aerosol inhaler Shortness Of Breath aspirin 81 mg tablet,delayed 81 mg PO BEDTIME 12/21/23 01/18/24 release atenolol 25 mg tablet 25 mg PO BEDTIME 12/21/23 01/18/24 atorvastatin 20 mg tablet 20 mg PO BEDTIME 12/21/23 01/18/24 lisinopril 10 1 tab PO BEDTIME 12/21/23 01/18/24 mg-hydrochlorothiazide 12.5 mg tablet Previous Rx's ?Medication ?Instructions ?Recorded amoxicillin 875 mg-potassium 1 tab PO BID #10 tabs 12/27/23 clavulanate 125 mg tablet oxycodone-acetaminophen 5 mg-325 1 tab PO Q4-6H PRN pain #15 tabs 12/27/23 mg tablet (Percocet) fluconazole 150 mg tablet 150 mg PO DAILY vaginal yeast 01/14/24 infection 3 days #3 tabs fluticasone 250 mcg-salmeterol 50 1 inh inhalation Q12H 30 days #60 01/18/24 mcg/dose blistr powdr for ea inhalation (Tracy Owusu) Allergies Allergy/AdvReac Type Severity Reaction Status Date / Time No Known Allergies Allergy Verified 02/21/24 00:40 Review of Systems Review of Systems: Constitutional : No Weight loss, No Fever, No Chills, No Night Sweats, No Fatigue, No Malaise ENT/Mouth : No Hearing loss, No Ear Pain, No Nasal Congestion, No Sinus Pain, No Hoarseness, No sore throat, No Rhinorrhea, No Swallowing Difficulty Eyes: No Eye Pain, No Swelling, No Redness, No Foreign Body, No Discharge, No Vision Changes Cardiovascular : No Chest Pain, No SOB, No Dyspnea on Exertion, No Orthopnea, No Edema, No Palpitations Respiratory : No Cough, No Sputum, No Wheezing, No Smoke Exposure, No Dyspnea Gastrointestinal : No Nausea, No Vomiting, No Diarrhea, No Constipation, No abdominal Pain, No Hematochezia, No Melena Genitourinary : no irregular bleeding, No Dysuria, No Urinary Frequency, No Hematuria, No Urinary Incontinence, No Urgency, No Flank Pain, No Urinary Flow Changes, No Hesitancy Musculoskeletal : No joint pain, No Myalgias, No Joint Swelling Skin : Complaining of an laceration and abrasion to the forehead Neuro : No Weakness, No Numbness, No Paresthesias, No Loss of Consciousness, No Dizziness, No Headache Psych : No Anxiety/Panic, No Depression, No SI/HI/AH/VH, No Social Issues, Heme/Lymph: No Bruising, No Bleeding,No Lymphadenopathy Endocrine : No Polyuria, No Polydipsia, No Temperature Intolerance PMFSH Past Medical History Medical History Pulmonary nodules Chronic back pain Smoker Hypertension Surgical History Hx of surgical procedure (~12/24/23) H/O removal of cyst History of hysterectomy H/O hernia repair Previous section Social History Social History Household Members: Family Housing: House Are you a primary healthcare architect to a significant other at home: No Do you presently have visiting nurse or other home services: No Comment: rings appropriately Patient Tobacco Use Status: Current everyday Tobacco user Tobacco use type: Cigarette Cigarettes Per Day: 3 Years Smoked: 50 Second Hand Smoke Exposure: No Advance Directives: Yes Advance Directives on File: Yes Advance Directives Date on File: 12/22/23 Do you have a plan to hurt others: No Plan service: No Physical Exam Vital Signs: Vital Signs: Last Vital Signs Temp 98.0 F 02/21/24 02:51 Pulse 60 02/21/24 02:51 Resp 16 02/21/24 02:51 BP 140/74 H 02/21/24 02:51 Pulse Ox 97 02/21/24 02:51 O2 Del Method Room Air 02/21/24 02:51 BMI result Body Mass Index 30.6 Const: Other: Appearance: Alert. Oriented X3. No acute distress. Eyes: Pupils equal, round and reactive to light. ENT: Pharynx normal. Neck: Normal inspection. Neck supple. No lymph nodes noted. No crepitus CVS: Normal heart rate and rhythm. Pulses normal. Normal S1 and S2 Respiratory: No respiratory distress. Breath sounds normal. No Wheezing. No rales Abdomen: Soft and nontender. No rigidity. No distention. Skin: Skin warm and dry. Normal skin color. Normal skin turgor. Patient has a 1.5 cm laceration to the forehead and a skin abrasion. Extremities: No lower extremity edema. No Lacerations. No Rash Neuro: Oriented X 3. No motor deficit. No sensory deficit. Moving all extremities. No slurred speech. CN 2 through 12 grossly intact, GCS 15 Psych: calm, cooperative, normal affect Medications Administered Discontinued Medications Generic Name Dose Route Start Last Admin Trade Name Freq PRN Reason Stop Dose Admin Acetaminophen 975 mg 02/21/24 04:26 02/21/24 04:41 Acetaminophen 325 Mg Tablet PO 02/21/24 04:27 975 mg ONCE ONE Administration Procedures Laceration Laceration 1: Site: face (Had) Side (If applicable): left Size (cm): 1.5 Description: linear and irregular Local Anesthetic: lidocaine 1% Amount of anesthesia used (mL): 4 Pre-repair: wound explored Skin layer closed with: nylon Size (cm): 3-0 Number of sutures: 3 Technique: simple, interrupted Medical Decision Making Medical Decision Making [facility] Narrative: My interpretation of labs: No significant abnormality in patient's hematology and chemistry. CT scan showed a 7 mm deep focal isodense extra-axial fluid collection in the right temporal region, concerning for a small subdural hematoma. Patient denies headache, denies neck pain, GCS [address] scan of the cervical spine: No obvious abnormality. 06:20: Patient is awake, alert and oriented x3, GCS 15, blood pressure 140/74, heart rate 60 I discussed the patient with Dr. Taveras from [facility] Trauma team, patient will be going ED to ED as a trauma consult We informed patient's daughter about the above-mentioned Differential Diagnosis Differential Diagnoses: The differential diagnosis associated with the presentation includes (Subdural hematoma, epidural hematoma, intracranial hemorrhage, contusion, laceration) Admission/Observation Consideration of admission/observation: Escalation of care including admission/observation considered Lab Data MDM Lab Attestation statement: I reviewed the patient's lab results. 02/21/24 00:52 02/21/24 00:52 Labs: Lab Results 02/21/24 Range/Units 00:52 WBC 10.5 (4.8-10.8) X10*3/uL RBC 4.05 L D (4.20-5.50) X10*6/uL Hgb 11.7 L D (12.0-16.0) g/dl Hct 35.6 L D (37.0-47.0) % MCV 87.9 (80.0-98.0) fL MCH 28.9 (27.0-33.0) pg MCHC 32.9 (31.0-35.0) g/dl RDW 15.7 (11.0-16.0) % Plt Count 291 (160-400) X10*3/uL MPV 10.1 (9.4-12.3) fL Immature Gran % (Auto) 0.6 H (0.0-0.4) % Neut % (Auto) 60.3 (45-73) % Lymph % (Auto) 27.5 (20-40) % [place] % (Auto) 9.9 (2-11) % Eos % (Auto) 1.2 (0-4) % Baso % (Auto) 0.5 (0-2) % Lymph # (Auto) 2.9 (1.2-4.9) X10*3/uL [place] # (Auto) 1.0 (0.1-1.2) X10*3/uL Eos # (Auto) 0.1 (0.0-0.4) X10*3/uL Baso # (Auto) 0.1 (0.0-0.2) X10*3/uL Abs Immat Gran (auto) 0.06 H (0.00-0.03) X10*3/uL Absolute Neuts (auto) 6.3 (2.0-8.3) x10*3/uL Absolute Nucleated RBC 0.000 (0.0-0.012) X10*3/uL Nucleated RBC % (auto) 0.0 (0.0-0.2) /100WBC Sodium 140 (135-145) mmol/L Potassium 3.8 (3.3-5.1) mmol/L Chloride 105 (96-108) mmol/L Carbon Dioxide 24 (22-29) mmol/L Anion Gap 15 (12-20) BUN 13 (9-16) mg/dL Creatinine 0.78 (0.5-1.4) mg/dL Estim Creat Clear Calc 48.9 Estimated GFR > 60 Random Glucose 133 H (60-115) mg/dL Calcium 9.6 D (8.4-10.2) mg/dL Independent Interpretation I performed an independent interpretation of an: CT Scan Radiology Impression Discussion of test interpretation with radiology: I have reviewed the radiologist's reading. Radiologist Impression: No intra-axial mass, midline shift, or hydrocephalus. 7 mm deep isodense extra-axial fluid collection in the right squamous temporal region. Nonspecific white matter hypodensity is present with mild volume loss. Mucosal thickening is present within the right sphenoid sinus with chronic sclerotic wall thickening. Mastoid air cells are clear. The orbits are unremarkable. There is no acute fracture. IMPRESSION: 7 mm deep focal isodense extra-axial fluid collection in the right temporal region concewrning for small subdural hematoma Critical Care Time Critical Care Time Critical Care Time: Yes Total Critical Care Time: 45 Attestation: I have personally provided critical care time. Time includes review of lab data, radiology results, discussion with consultants, and monitoring for potential decompensation. Intervention performed as documented. Discharge Plan Discharge Clinical Impression: Acute subdural hematoma Prescriptions: No Action atorvastatin 20 mg tablet 20 mg PO BEDTIME atenolol 25 mg tablet 25 mg PO BEDTIME lisinopril-hydrochlorothiazide 10-12.5 mg tablet 1 tab PO BEDTIME albuterol sulfate 90 mcg/actuation HFA aerosol inhaler 2 puff inhalation Q4H PRN (Reason: Shortness Of Breath) aspirin 81 mg Tablet,Delayed Release (Dr/Ec) 81 mg PO BEDTIME oxycodone-acetaminophen [Percocet] 5-325 mg tablet 1 tab PO Q4-6H PRN (Reason: pain) Qty: 15 0RF Rx Instructions: Partial Fill upon patient request. amoxicillin-pot clavulanate 875-125 mg tablet 1 tab PO BID Qty: 10 0RF fluconazole 150 mg tablet 150 mg PO DAILY 3 Days Qty: 3 0RF fluticasone propion-salmeterol [Wixela Inhub] 250-50 mcg/dose blister with device 1 inh inhalation Q12H 30 Days Qty: 60 1RF Print Language: Congolese
--- NOTE | 2024-02-21 07:12 | PC.NURSE ---
Report called to [facility] ED RN
[2024-02-21 07:16] VITALS: BP 138/72; PULSE 88; RESP 18; TEMP 36.7; O2SAT 977
== END 2024-02-21 07:17 | disposition short-term general hospital (02) ==
PROVIDERS: Emergency Provider Emergency Medicine; PCP Internal Medicine
DX: S01.91XA Laceration without foreign body of unspecified part of head, initial encounter (principal); S06.5XAA Traumatic subdural hemorrhage with loss of consciousness status unknown, initial encounter; W01.190A Fall on same level from slipping, tripping and stumbling with subsequent striking against furniture, initial encounter; Y93.9 Activity, unspecified; Y92.9 Unspecified place or not applicable; Y99.9 Unspecified external cause status
CPT/HCPCS: 12011; 36415; 70450; 72125; 80048; 85025; 93005; 99284; 99285

== ENCOUNTER → 2024-02-21 00:44 | Outpatient (BNV) | payer MEDICARE, SELFPAY | PROVIDERS: Emergency Provider Emergency Medicine; PCP Internal Medicine; Visit Provider Internal Medicine Cardiovascular Disease | DX: I45.10 Unspecified right bundle-branch block (principal); R94.31 Abnormal electrocardiogram [ECG] [EKG] | CPT/HCPCS: 93010 ==

== ENCOUNTER → 2024-02-21 03:47 | Outpatient (BNV) | payer MEDICARE, SELFPAY | PROVIDERS: Emergency Provider Emergency Medicine; PCP Internal Medicine; Visit Provider General Practice | DX: S01.81XA Laceration without foreign body of other part of head, initial encounter (principal); W19.XXXA Unspecified fall, initial encounter | CPT/HCPCS: 70450; 72125 ==

== ENCOUNTER 2024-03-17 13:54 | Outpatient (REF) | payer MEDICARE, SELFPAY ==
--- NOTE | ~2024-03-17 | CT_ITS ---
CLINICAL HISTORY: R91.8 - Other nonspecific abnormal finding of lung field CT chest without contrast Comparison: None Findings: The heart size is normal. The visualized thyroid and mediastinum are unremarkable. There is a solid circumscribed left lower lobe 1.1 x 1.0 cm pulmonary lesion containing an element of fat raising possibility of hamartoma. There is a spiculated apical segment right upper lobe 1.2 x 0.7 cm pulmonary lesion. This is unchanged correlated with a CT of the cervical spine from 02/21/2024 and may represent focal scarring versus vascular malformation. No consolidation or effusion. The upper abdomen is unremarkable. The bones are intact. IMPRESSION: 1. Possibly benign right upper and left lower lobe pulmonary lesions. Depending upon patient's risk factor for pulmonary neoplastic disease, would recommend either a six-month follow-up chest CT for low risk, or PET-CT for moderate to high-risk. This document has been electronically signed by: Paco Thompson MD on 03/20/2024 08:57:30
--- OUTSIDE RECORDS SUMMARY | 2024-03-17 15:36 | XMS_ITS | Continuity of Care Document ---
Author Organization [facility] Address [address] [address] Phone Care Team Providers Care Maintenance Worker Swimming Pool Name Role Phone Farrukh Saunders MD Unavailable Unavailable Allergies, Adverse Reactions, Alerts Substance Reaction Status Criticality No Known Allergies Active No Inform ation Medications Medication Instructions Dosage Effective Dates (start - stop) Status Comments lisinopril 10 mg-hydrochlorothiazi de 12.5 mg tablet take 1 tablet by oral route every day 1.00 tablet - Active atorvastatin 20 mg tablet take 1 tablet by oral route every day 20 MG - Active atenolol 25 mg tablet take 1 tablet by oral route every day 25 MG - Active aspirin 81 mg chewable tablet chew 1 tablet by oral route every day 81 MG - Active Vitamin B-12 1,000 mcg tablet - Active magnesium 250 mg tablet - Active Fish Oil 1,000 mg (120 mg-180 mg) capsule - Active Procedures Procedure Date Scan Computerized; Retina Est Patient E/M Moderate MDM Scan Computerized; Retina Est Pt Complete Scan Computerized; Retina Est Pt Complete Post Op Cataract/Yag Post Op Cataract/Yag Post Op Cataract/Yag Post Op Cataract/Yag New Patient E/M Low MDM Scan Computerized; Retina Est Pt Complete Scan Computerized; Retina New Pt Complete Scan Computerized; Retina Est Pt Complete New Pt Complete No Charge Gonioscopy (separt Proc) Advance Directives Directive Yes / No Effective Date File Name No Information Encounters Encounter Description Practice Location Reason(s) For Visit Diagnoses Date Provider Providers Copied on Encounter Est Patient E/M Moderate MDM [facility], [address] [place], [place], [id number] , [place] tel:[phone] [facility] Follow Up of Vitreomacular adhesion (chief complaint) Vitreomacular adhesion, left eyePuckering of macula, bilateral Sep-1 2 Chip Chadwick. [address] [facility] [address], [place], [place], [id number], [place]. tel:[phone] Referring Provider: Juan Joe, [address] [place] [address], [address] . tel:[phone] [facility], [address] [place], [address] , [place] [phone] [facility] routine exam (chief complaint) Vitreomacular adhesion, left eye Mar-3 2 Rosita Martinez. [address] [place], [address], [place]. tel:[phone] Referring Provider: Juan Joe, [address] [place], [address] . tel:[phone] [facility], [address] [place], [place], [id number] , [place] tel:[phone] [facility] VMT (chief complaint) Vitreomacular adhesion, left eye Sep-2 1 Rosita Martinez. [address] [place], [address], [place]. tel:[phone] Referring Provider: Juan Joe, [address] [place], [address] . tel:[phone] [facility], [address] [place], [place], [address] , tel:[phone] [facility] Presence of intraocular lens 1 Senica Sly. [address] [facility], [place], [place], [address], . tel:[phone] Referring Provider: Paco Willson, [address] [place], [address] . tel:[phone] [facility], [address] [place], [place], [id number] , tel:[phone] [facility] Presence of intraocular lens 1 Senica Sly. [address] [facility] [address] [facility], [place], [place], [address], [place]. tel:[phone] Referring Provider: Paco Willson, [address] [place], [address] . tel:[phone] [facility], [address] [place], [place], [address] , tel:[phone] [facility] Encounter for surgical aftercare following surgery on a sense organ 1 Senica Sly. [address] [facility] [address] [facility], [place], [place], [id number], [place]. tel:[phone] Referring Provider: Paco Willson, [address] [place], [address] . tel:[phone] [facility], [address] [place], [address] , [place] tel:[phone] [facility] Encounter for surgical aftercare following surgery on a sense organ 1 Senica Sly. [address] [facility] [address] [facility], [place], [place], [address], [place]. tel:[phone] Referring Provider: Paco Willson, [address], [place], [address] . tel:[phone] New Patient E/M Low MDM [facility], [address], [place], [place], [id number] , [place] [phone] [facility] Encounter for other preprocedural examinationCombi joi forms of age-related cataract, bilateral June-0 1 Tobiasrolo Boston. [address] [place], [place], [id number], [place]. tel:[phone] Referring Provider: Paco Willson, [address], [place], [address] . tel:[phone] [facility], [address] [place], [place], [address] , [place] [phone] [facility] blurry vision (chief complaint)Glar e (chief complaint)Floa ters (chief complaint) Vitreomacular adhesion, left eyeCombined forms of age-related cataract, bilateralCombine d forms of age-related cataract, left eyeRegular astigmatism, bilateral Apr-0 1 Rj Antonio. [address], [place], [place], [address], [place]. tel:[phone] Referring Provider: Juan Joe, [address] [place], [address] . tel:[phone] [facility], [address] [place], [place], [id number] , [place] tel:[phone] [facility] Vitreomacular adhesion, left eye Mar-2 1 Rosita Martinez. [address] [place], [place], [address], [place]. tel:[phone] Referring Provider: Sly Monge, [address], [place], [address] . tel:[phone] [facility], [address] [place] [address], [id number] , tel:[phone] [facility] Combined forms of age-related cataract, bilateralVitreom acular adhesion, left eyeCystoid macular degeneration, left eyeType 2 diabetes mellitus without complications Apr- 1 Alriio Heart. [address] [facility], [place], [place], [address], [place]. tel:[phone] Referring Provider: Sly Monge, [address] [facility], [place], [address] . tel:[phone] [facility], [address] [place] [address], [id number] , [phone] [facility] Combined forms of age-related cataract, bilateral Dec-1 0-201 9 Alirio Heart. [address] [facility] [address] [facility], [place], [place], [address], . tel:[phone] Referring Provider: Sly Monge, [address] [facility], [place], [address] . tel:[phone] Family History Family Member Type Diagnosis Age At Onset Daughter Problem (finding) glaucoma Mother Problem (finding) glaucoma Payers Payer name Insurance type Covered green party ID Authoriza tion(s) [employer] Gold Plus PPO HMO Advantage CI [id number] Social History Type Description Quantity Date Captured Comments Alcohol Use Details No Caffeine Use Details 1 cup per day Tobacco Use Status Smoking Status Light tobacco smoker Sex Female Chief Complaint And Reason For Visit From encounter dated '11/06/2021 10:00'. 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 Patient denies any vision changes since last visit. routine exam Pt presents for reevaluation of VMT OS. Pt notes mild floaters OU, constant tearing especially in the morning, decreased vision OS both near and far, stable OD. Denies pain, discomfort, and flashes of light. STAT OCT OU. VMT Patient returns for 6 month re-evaluation of VMT OS. Patient denies any problems or worsening of symptoms. blurry vision Patient has c/o glare from headlights at night, hard to read small print on TV, glucose unchecked but controlled Glare Floaters Functional Status Date Functional Assessmen t No Information Instructions Date Instruction Additional Infor carmen Impression/Plan - Di scussed diagnosis in detail with patient. Monitor. Related to Vitreomacular adhesion, left eye Impression/Plan - Di scussed diagnosis in detail with patient. No treatment is required at this time. Related to Puckering of macula, bilateral Assessment/Plan Related to Vitre omacular adhesion, left eye Follow up - 1 year CEE with OCT Impression/Plan - Th e patient has VMT OS but no treatment was indicated today. She will return to Dr. Saunders in 6 months for a follow up examination. She will return to retina PRN. Related to Vitreomacular adhesion, left eye Impression/Plan - Th e patient has VMT OS but no treatment was indicated today. She will return to retina in 6 months for a follow up examination and possible OCT. Related to Vitreomacular adhesion, left eye Impression/Plan Related to Prese nce of intraocular lens Follow up Post Op - RTC 6 months CEE with 5-line OCT or ANTONIA if decreased VA, pain, or any worsening of condition. Related to Presence of intraocular lens Impression/Plan Related to Prese nce of intraocular lens Follow up Post Op - RTC as scheduled or ANTONIA if decreased VA, pain, or any worsening of condition. Related to Presence of intraocular lens Impression/Plan Related to Encou nter for surgical aftercare following surgery on a sense organ Follow up Post Op - As scheduled for second eye Related to Encounter for surgical aftercare following surgery on a sense organ Impression/Plan - Add Gurinder 128 O D QID Related to Encounter for surgical aftercare following surgery on a sense organ Follow up Post Op - As scheduled Related to Encounter for surgical aftercare following surgery on a sense organ Impression/Plan - Di scussed cataracts, treatment options, and surgical risks/benefits with patient including bleeding, infection, capsular break, glaucoma, corneal clouding.Pt understands changing glasses will not improve vision/glare. Discussed Premium options available. Pt understands the need for glasses after surgery if advanced technology lenses are not chosen and that there is NO PERFECT IOL. Pt understands that even the highest ATLs have limitations including but not limited to Halos/Glare/Difficulty in Dim Lighting and Intermediate BCVA may need glasses after SX.Patient elects surgical treatment. Recommend Vividy OD with LRI then Toric OSRecommend surgery OU. Aim OD: -0.25. Aim OS: -0.25. Recommend ORA. Recommend Dexycu + Moxifloxacin (PF) Intracameral Injection.Recommend monofocal IOL, and patient will need glasses after surgery.Recommend OD First then OS Related to Combined forms of age-related cataract, bilateral Impression/Plan - Monitor. Relat ed to Vitreomacular adhesion, left eye Impression/Plan - as above Relat ed to Combined forms of age-related cataract, left eye Impression/Plan - see above Rela rashad to Regular astigmatism, bilateral Assessment/Plan Related to Vitre omacular adhesion, left eye - The patient has VM T bilaterally but no treatment was indicated today. The patient is cleared to proceed with surgery. She will return to retina in 6 months for a follow up examination. Related to Vitreomacular adhesion, left eye - Discussed findings with patient and recommend consult with retinal specialist for VMT/CME eval OS and clearance for CE/IOL. OCT MAC OD) normal, no SRF or CME. OCT MAC OS) Subtle VMT with cystic change. OCT Macula Assessment/Plan: See today's plan for further clinical correlation and recommendations based on test results and other clinical findings.. Related to Vitreomacular adhesion, left eye - Discussed cataract findings. Discussed option of ce/iol OU. Discussed risks, potential benefits, potential complications, and alternatives to surgery. Patient desires to have surgery. Recommend CE w/IOL consult with Dr. Kathleen or Dr. De La Rosa. Related to Combined forms of age-related cataract, bilateral - No diabetic retino oren. Recommend yearly diabetic eye exam. Discussed with patient importance of good blood sugar control. Related to Type 2 diabetes mellitus without complications - See above plan. Related to Cys toid macular degeneration, left eye - Discussed findings . Discussed option of CE/IOL OU. Patient understands cataract effect on vision. Patient defers to have CE w/IOL consult with Dr. Edgar or Dr. Kathleen at this time. Continue to monitor. RTC 1 year CEE or ANTONIA if decreased VA or pain. Related to Combined forms of age-related cataract, bilateral Assessments Type Assessment Date assessment Vitreomacular adhesion, left eye assessment Puckering of macula, bilateral S impression Puckering of macula, bilateral: H35.373 impression Vitreomacular adhesion, left eye : H43.822 Patient Care Teams Name Effective Dates (start - stop) Status Members No Information
--- OUTSIDE RECORDS SUMMARY | 2024-03-17 15:36 | XMS_ITS | Data Portability ---
Author Organization MD - [facility], OFFICE - [place] Address [address] [place] [address] Care Team Providers Care School Bus Driver/Custodian Name Role Phone JONATHAN THOMAS Primary Care Provider Assessment No assessment recorded. Plan of Treatment Reminders Order Date Submit Date Provider Last Modified By Organization Details Last Modified Time Details Appointments None record ed. Lab None record ed. Referral None record ed. Procedures None record ed. Surgeries None record ed. Imaging None record ed. Medication Orders None record ed. Patient TargetsNo targets recorded. Patient Instructions Encounter Date Encounter Id Patient Instructions Last Modified By Organization Details Last Modified Time 09/08/[id number] Peripheral Arterial Disease (PAD): Care Instructions STEPHANIE Not available 10/11/2016 05:01:23 03/16/2017 [id number] Peripheral Arterial Disease (PAD): Care Instructions Not available 03/20/2017 01:57:32 09/27/2017 [id number] Peripheral Arterial Disease (PAD): Care Instructions Not available 09/29/2017 17:59:47 10/22/2017 [id number] Peripheral Arterial Disease (PAD): Care Instructions Not available 10/27/2017 13:44:32 05/06/2018 [id number] Peripheral Arterial Disease (PAD): Care Instructions Not available 05/10/2018 19:09:40 Reason for Referral None Reported. Results Created Date Observation Date Name Description Value Unit Range Abnormal Flag Note LastModifiedBy Organization Detail LastModifiedTime 09/29/19 18 elect rocar diogr am No observ ation record ed. [facility] [address], [place], [address], 09/28/2017 15:37:29 10/23/19 18 US, carot id arter y No observ ation record ed. [facility] [address], [place], [address], 10/22/2017 19:15:59 Result Notes None recorded. Problems No Known Problems Procedures Surgical History Date Name Laterality Status Provider Name and Address Organization Details Recorded Time delivery completed [facility] 02/20/2016 16:57:55 Hysterectomy/bladd er repair completed [facility] 02/20/2016 16:58:01 Genitourinary Surgery completed [facility] 02/20/2016 16:58:12 Other completed [facility] 02/20/2016 16:58:21 Orthopaedic Surgery completed [facility] 02/20/2016 16:58:32 Removal of tonsils completed [place] [facility] 02/20/2016 16:58:39 Appendectomy completed [facility] 02/20/2016 16:58:44 Imaging Results Imaging Date Name Status LastModified by Organization Details LastModified Time 09/28/2017 electrocardiogram completed [facility] [address], [place], [address], 09/28/2017 15:37:29 10/22/2017 US, carotid artery completed [facility] [address], [place], [address], 10/22/2017 19:15:59 Procedure Notes None recorded. Medical Equipment None Reported. Allergies No known drug allergies Medications Name Sig Start Date Stop Date Status Note LastModified by Organization Details LastModified Time ibuprofen 200mg 05/06 completed Not Available Not Available Not Available hydrocortison e 1% - 60 gm 05/06 completed Not Available Not Available Not Available effervescent denture tabs - 90 05/06 completed Not Available Not Available Not Available aspirin low dose 81mg ec 05/06 completed Not Available Not Available Not Available vitamin b12 05/06 completed Not Available Not Available Not Available oral thermometer 09/27 completed Not Available Not Available Not Available vitamin d 1000 iu 05/06 completed Not Available Not Available Not Available stool softener capsules 05/06 completed Not Available Not Available Not Available milk of magnesia laxative/an 03/16 completed Not Available Not Available Not Available effervescent pain relief 03/16 completed Not Available Not Available Not Available naproxen sodium - 100 count 09/08 completed Not Available Not Available Not Available medicated chest rub 03/16 completed Not Available Not Available Not Available allergy cream itch and pain 09/08 completed Not Available Not Available Not Available cough and cold high blood pres 03/16 completed Not Available Not Available Not Available denture adhesive 09/08 completed Not Available Not Available Not Available magnesium oxide 400mg qd 05/06 completed Not Available Not Available Not Available generic cough suppressant/n asa 05/06 completed Not Available Not Available Not Available menthol/benzo nitin sore throat 05/06 completed Not Available Not Available Not Available melatonin 5 mg 09/08 completed Not Available Not Available Not Available daily multivitamin and mineral 09/08 completed Not Available Not Available Not Available digital blood pressure monitor 09/27 completed Not Available Not Available Not Available elastic bandage 09/08 completed Not Available Not Available Not Available triple antibiotic ointment plu 03/16 completed Not Available Not Available Not Available toothbrush - 3 pack 09/08 completed Not Available Not Available Not Available metformin 500 mg tablet Take 1 tablet every day by oral route. active Not Available Not Available No t Available atorvastatin 20 mg tablet Take 1 tablet every day by oral route. 05/06 completed Not Available Not Available Not Available lovastatin 40 mg tablet Take 1 tablet every day by oral route. active Not Available Not Available No t Available atenolol 25 mg tablet Take 1 tablet every day by oral route. active Not Available Not Available No t Available aspirin 81 mg tablet,delaye d release Take 1 tablet every day by oral route. active Not Available Not Available No t Available tramadol 50 mg tablet 02/19 completed Not Available Not Available Not Available lorazepam 0.5 mg tablet Take 1 tablet as needed by oral route. 09/08 completed Not Available Not Available Not Available lisinopril 10 mg-hydrochlor othiazide 12.5 mg tablet TK 1 T PO QAM active Not Available Not Available No t Available Fluzone High-Dose 8809-2810 (PF) 180 mcg/0.5 mL intramuscular syringe ADM 0.5ML IM UTD 02/19 completed Not Available Not Available Not Available Fluzone High-Dose 1144-8667 (PF) 180 mcg/0.5 mL intramuscular syringe ADM 0.5ML IM UTD 03/16 completed Not Available Not Available Not Available Fluzone High-Dose [id number] (PF) 180 mcg/0.5 mL intramuscular syringe ADM 0.5ML IM UTD 05/06 completed Not Available Not Available Not Available Vitals Date Recorded Body height Provider Name an d Address Organization Details Last Updated DateTime 09/08/2016 152.4 cm Antoinette Dee [facility] 09/08/2016 18:48:16 Date Recorded Body mass index (BMI) Body weight Respiratory rate Heart rate Oxygen saturation Oxygen saturation in Arterial blood by Pulse oximetry Systolic blood pressure Diastolic blood pressure Provider Name and Address Organization Details Last Updated DateTime 7 31.4 kg/m2 84553.3 7 g 16 /min 72 /min 98 % 98 % 122 mm[Hg] 76 mm[Hg] [facility] 19:05:50 Date Recorded Body height Respiratory rate Body mass index (BMI) Body weight Heart rate Oxygen saturation Oxygen saturation in Arterial blood by Pulse oximetry Systolic blood pressure Diastolic blood pressure Provider Name and Address Organization Details Last Updated DateTime 8 152.4 cm 16 /min 30.9 kg/m2 80766.5 9 g 75 /min 98 % 98 % 110 mm[Hg] 78 mm[Hg] Emma Pradhan [facility] 8 15:33:46 Date Recorded Body height Heart rate Oxygen saturation Oxygen saturation in Arterial blood by Pulse oximetry Respiratory rate Body mass index (BMI) Body weight Systolic blood pressure Diastolic blood pressure Provider Name and Address Organization Details Last Updated DateTime 8 152.4 cm 66 /min 97 % 97 % 16 /min 31.1 kg/m2 02043.6 2 g 130 mm[Hg] 72 mm[Hg] diamante dickson [facility] 8 19:36:01 Date Recorded Body height Respiratory rate Body mass index (BMI) Body weight Heart rate Oxygen saturation Oxygen saturation in Arterial blood by Pulse oximetry Systolic blood pressure Diastolic blood pressure Provider Name and Address Organization Details Last Updated DateTime 8 152.4 cm 16 /min 31.1 kg/m2 14005.6 2 g 73 /min 96 % 96 % 148 mm[Hg] 78 mm[Hg] Myrna chou [facility] 8 16:21:51 Date Recorded Body height Respiratory rate Body mass index (BMI) Body weight Heart rate Oxygen saturation Oxygen saturation in Arterial blood by Pulse oximetry Systolic blood pressure Diastolic blood pressure Provider Name and Address Organization Details Last Updated DateTime 9 152.4 cm 16 /min 31.5 kg/m2 22418.8 1 g 68 /min 97 % 97 % 130 mm[Hg] 72 mm[Hg] Lyn Sohail [facility] 9 16:30:59 Social History Question Answer Notes LastModified by Organizat ion Details LastModified Time Tobacco Smoking Status Current Every Day Smoker [facility] 02/20/2016 16:57:39 Do You Have An Advance Directive? No [email or web address] Information not available 02/20/2016 What Is Your Level Of Alcohol Consumption? None [email or web address] Information not available 02/20/2016 Diabetes Yes [email or web address] Information no t available 02/20/2016 What Type Of Diet Are You Following? REGULAR [email or web address] Information not available 02/20/2016 Which Illicit Or Recreational Drugs Have You Used? [email or web address]. russ Information not available 03/18/2016 What Is Your Occupation? Retired [email or web address] Information not available 02/20/2016 Family History Of Heart Disease? Yes [email or web address] Information not available 02/20/2016 High Blood Pressure Yes [email or web address] Information not available 02/20/2016 High Cholesterol Yes [email or web address] Informat ion not available 02/20/2016 Marital Status [email or web address] Informatio n not available 02/20/2016 What Was The Date Of Your Most Recent Tobacco Screening? 05/06/2018 Information not available 09/14/2018 Obese No [email or web address] Information no t available 02/20/2016 Overweight Yes [email or web address] Information no t available 02/20/2016 How Much Tobacco Do You Smoke? 0.25 PPD Information not available 02/20/2016 General Stress Level Low [email or web address] Information not available 02/20/2016 Sex: Unknown Functional Status Question Answer Note LastModified by Organizat ion Details LastModified Time What is your exercise level? Occasional [email or web address] Information not available 02/20/2016 Mental Status None recorded. Family History Relationship Description Onset Age of this Age Resolved Age Notes LastModified by Organization Details LastModified Time Father Myocardial infarction 50 [email or web address] Not available 01/23 17:06:27 Medical History Condition Response Coronary Artery Disease N CVA/TIA (Stroke) N Neurologic Disorder (Parkinson's, tremor , MS) N COPD N Depression/Anxiety N Pacemaker N Peripheral Arterial Disease N Anemia N Genitourinary Disease N Gastrointestinal Disease N Heart Attack ([place]) N Deep Vein Thrombosis N Diabetes Y Cardiomyopathy N Antiplatelet/Anticoagulant Therapy N Congestive Heart Failure (CHF) N Hyperlipidemia Y Cancer N Asthma N Aortic Aneurysm N Liver Disease N Valvular Abnormalities N Arrhythmia N Hypertension Y Kidney Disease N Hematologic Disease N Gynecological HistoryNo gynecological history recorded. Obstetrics History GPAL:G 0 P 0 0 0 0 Past Encounters Encounter ID Performer Location Encounter Start Date Encounter Closed Date Diagnosis/Indication Diagnosis SNOMED-CT Code Diagnosis ICD10 Code Diagnosis Note [id number] Warren England MD OFFICE - [place] [address] [address] 02/20/2016 17:00:01 02/23/2016 14:02:13 Peripheral vascular disease 574464576 I73.9 xray showed calcificat ion of aorta. No symptoms. Do MARTINEZ for further evaluation and do US for evaluation of aneurysm as well. Hyperlipidemia 55314001 E78.5 Continue Statin Benign hypertension 1072 5009 I10 BP is controlled , reviewed the ekg, showed SR. Advised about smoking cessation [id number] Warren England MD OFFICE - [place] [address] [facility] [address] [place] [address] 03/18/2016 15:08:59 03/20/2016 15:52:57 Peripheral vascular disease 856075579 I73.9 Reviewed the MARTINEZ, normal. Possible inflow disease. No symptoms at all, no need for further testing at this point. Encouraged more walking. Symptoms improved after sciatica shot. Reviewed the MARTINEZ, appears normal. Hyperlipidemia 19238920 E78.5 Continue Statin Benign hypertension 1072 5009 I10 BP is controlled on current medical therpay. No changes in meds. [id number] Warren England MD [facility] [address] [address] 09/08/2016 18:38:53 09/09/2016 19:31:46 Peripheral vascular disease 177231358 I73.9 stable. Benign hypertension 1072 5009 I10 BP is controlled on current medical therpay. No changes in meds. Under alot of stress lately. Doing good cardiac khanna. [id number] Warren England MD [facility] [address] [place] [id number] 03/16/2017 15:25:09 03/20/2017 02:01:26 Peripheral vascular disease 498811968 I73.9 Stable. Mixed hyperlipidemia 267 246752 E78.2 Continue medical therapy. Benign hypertension 1072 5009 I10 BP is controlled on current medical therapy. No changes in meds. Doing good cardiac khanna. [id number] Warren England MD [facility] [address] [place] [address] 09/27/2017 18:53:00 09/29/2017 17:59:03 Peripheral vascular disease 853812565 I73.9 Stable. Reviewed the keg, showed SR. Mixed hyperlipidemia 267 985201 E78.2 Continue medical therapy. Benign hypertension 1072 5009 I10 Z72.0 BP is controlled on current medical therapy. Bruit 69056528 R09.89 do carotid US, xray showed calcificat ion in carotid artery. [id number] Warren England MD [facility] [address] [phone] 10/22/2017 16:08:13 10/27/2017 13:43:54 Benign hypertension 90956970 I10 BP is controlled at home, no change in meds for now. Reviewed US, normal. Mixed hyperlipidemia 267 445157 E78.2 Continue medical therapy. Peripheral vascular disease 108156575 I73.9 Stable. [id number] Warren England MD [facility] [address] [address] 05/06/2018 15:43:43 05/10/2018 19:09:20 Benign hypertension 76334554 I10 Z72.0 BP is controlled at home, no change in meds for now. Mixed hyperlipidemia 267 638673 E78.2 Continue medical therapy. Peripheral vascular disease 019566033 I73.9 Stable. no change in meds Health Concerns Section Related Observation LastModified by Organization Detai ls LastModified Time None Recorded Concern Status LastModified by Organization Details LastModified Time None Recorded Advance Directives Directive N: Payers Encounter Date Sequence Insurance Name Policy Number Policy Hall Covered Member ID Hall Member ID Guarantor Name 09/08/2016 1 [employer] (MEDICARE REPLACEMENT/AD VANTAGE - PPO) July Arel [id number] July Arel 03/16/2017 1 [employer] - [employer]US (MEDICARE REPLACEMENT HMO) July Arel [id number] July Arel 09/27/2017 1 [employer] - [employer]US (MEDICARE REPLACEMENT HMO) July D Arel [id number] July D Arel 10/22/2017 1 [employer] - [employer]US (MEDICARE REPLACEMENT HMO) July Arel [id number] July D Arel 05/06/2018 1 [employer] - GOLD PLUS (MEDICARE REPLACEMENT HMO) July Arel [id number] July D Arel Notes Date Note Type Note Provider Name and Address Organization Details Recorded Time 09/08/2016 text/html Mrs. Campbell is a [age] year old female with HTN, hyperlipidemia, and DMII. She comes in today for a follow up of HTN.Patient has no complaints. Denies CP, SOB, dizziness, and swelling. Warren England MD [address] [place] [address], [place], [address], [facility] - [facility] 09/09/2016 19:32:45 03/16/2017 text/html Mrs. Campbell is a [age] year old female with HTN, hyperlipidemia, and DMII. She comes in today for a follow up of HTN. Patient has no complaints. Denies CP, SOB, dizziness, and swelling. Warren England MD [address] [place] [address],[address], [place], [address], [facility] 03/20/2017 02:01:29 09/27/2017 text/html Mrs. Campbell is a [age] year old female with HTN, hyperlipidemia, and DMII. She comes in today for a follow up of HTN. Patient denies CP, dizziness, SOB, and abnormal swelling. She has no concerns today but states Dr Thomas told her to get her carotid arteries checked. Warren England MD [address] [facility],[address], [address], [facility] 09/29/2017 17:59:50 10/22/2017 text/html Mrs. Campbell is a [age] year old female with HTN, hyperlipidemia, and DMII. She comes in today for a follow up of HTN. Patient denies CP, SOB, dizziness, or swelling in BLE. Patient denies any other symptoms. Warren England MD [address], [place], [address], [facility] 10/27/2017 13:44:35 05/06/2018 text/html Mrs. Campbell is a [age] year old female with HTN, hyperlipidemia, and DMII. She comes in today for a follow up of HTN. She denies CP, SOB, dizziness, and swelling in BLE. She has no other complaints today. Warren England MD [address] [facility],[address], [place], [address], [facility] 05/10/2018 19:09:42 OBGyn Episode No OBEpisode recorded.
== END 2024-03-17 13:55 | disposition home or self-care (01) ==
LOC: HO.CT 13:54
PROVIDERS: PCP Internal Medicine; Visit Provider Hospitalist
DX: R91.8 Other nonspecific abnormal finding of lung field (principal)
CPT/HCPCS: 71250

== ENCOUNTER → 2024-03-17 13:56 | Outpatient (BNV) | payer MEDICARE, SELFPAY | PROVIDERS: PCP Internal Medicine; Visit Provider Specialist | DX: R91.8 Other nonspecific abnormal finding of lung field (principal) | CPT/HCPCS: 71250 ==

== ENCOUNTER 2024-03-27 10:27 | Outpatient (AMB) | payer MEDICARE, SELFPAY ==
[2024-03-27 10:31] VITALS: BP 110/64; PULSE 68; O2SAT 99; BMI 30.6
--- NOTE | 2024-03-27 10:31 | MHC.OFFVIS ---
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 Plan is for flexible sigmoidoscopy tomorrow to visualize the possible fistula in the sigmoid colon connecting to the vaginal cuff. This was seen on a recent CT after patient reported to the ED with passing gas and stool vaginally and a UTI. She reports that she does have an inhaler for an unknown reason, she is a smoker, and often wheezes in the morning. The patient had a CT scan of the abdomen which I personally reviewed. There was about a cm nodular density in the left lower lobe and a small subcentimeter nodule in the right lower lobe. Again this is limited just to the lower lung cuts of the abdominal CT scan. And she does need a formal CT scan of the chest. 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 I did recommend that the patient gets treated for the active issues and when she is discharged she undergoes a CT scan of the chest deformity follow-up with their findings. In the meantime she does smoke. 01/18/2024 the patient is here for a pulmonary hospital follow-up visit. Apparently the patient was admitted and underwent a CT scan of the abdomen with a found that nodular density. She ultimately underwent a CT scan of the chest which I personally reviewed. I did review with her. This CT scan was done in 12/12/2023. She does have a 12 mm pulmonary nodule in the left lower lobe which appears to be smooth border. In addition to that she has more irregular subsolid irregular nodular density measuring around 10 mm in size. The patient is a smoker and therefore she is a high-risk for cancer. She also has significant atherosclerosis. No significant emphysema although she does have evidence of chronic bronchitis. The patient does have a rescue inhaler that she does not have to use it. She did complete a course of Augmentin because of another infection. Therefore, be reasonable to place her on Wixela. She can use it once a day with the hope that this right upper lobe area is more inflammatory. She can use Wixela daily. And then will plan to repeat the CT scan 3 months from her last 1. Then will follow-up. If this area is persistent in changing then will talk about further diagnostic interventions. Otherwise will follow-up then. Depending on the findings in the CT scan will decide if she needs a CT scan. Right now she is not ready to quit smoking. But she is consider cutting down some. 03/27/2024 the patient is here for a pulmonary follow-up visit. Overall she is doing okay. The patient has been using the Wixela although she does not feel like he has been very helpful. She does not use it regularly. I did recommend she least use it daily. She should rinse her mouth after using it. She understands that she is not going to get an acute response to the medications since his longer acting. But it will help. She continues to smoke cigarettes. She is not ready to quit. In addition to that she had a repeat CT scan which we personally reviewed and compared to her CT scan from 12/12/2023. Looks like the irregular nodular density appears to be a little more spiculated in the right upper lobe. Also a little denser when compared to 3 months prior. Her other nodules are well-circumscribed. We did talk about different options including PET scan versus biopsy versus repeating the CT scan in 3 months. At this point the patient just rather follow it another [address] scan to see how progressing. At that point if it progresses further will talk about further diagnostic interventions. But for now will follow. She will continue with current respiratory therapy. She is also going to work on cutting down her smoking. [facility] Medical History Pulmonary nodules Chronic back pain Smoker Hypertension Surgical History Hx of surgical procedure (~12/24/23) H/O removal of cyst History of hysterectomy H/O hernia repair Previous section Social History Household Members: Family Housing: House Are you a primary physician assistant primary care to a significant other at home: No Do you presently have visiting nurse or other home services: No Comment: rings appropriately Patient Tobacco Use Status: Current everyday Tobacco user Tobacco use type: Cigarette Cigarettes Per Day: 3 Years Smoked: 50 Second Hand Smoke Exposure: No Advance Directives Date on File: 12/22/23 service: No Review of Systems Const Denies chills and Denies fever(s) ENT Reports nasal congestion Card Denies chest pain and Reports dyspnea on exertion Resp Reports cough, Reports dyspnea on exertion and Denies wheezing GI Denies abdominal pain Musc Reports myalgias Skin/Breast Denies rash Fei/Lymph Reports no additional complaints Aller/Immun Denies wheezing Physical Exam Vital Signs: Last Vital Signs Pulse 68 03/27/24 10:31 BP 110/64 03/27/24 10:31 Pulse Ox 99 03/27/24 10:31 Oxygen Delivery Method Room Air 03/27/24 10:31 BMI result Body Mass Index 30.6 Last Vital Signs Temp 98.3 F 12/23/23 08:10 Pulse 63 12/23/23 08:10 Resp 16 12/23/23 08:10 BP 125/46 L 12/23/23 08:10 Pulse Ox 94 12/23/23 08:10 O2 Del Method Room Air 12/23/23 08:10 BMI result Body Mass Index 29.6 Const General: comfortable HEENT Head: Yes normocephalic Neck Neck: Yes supple Chest Chest palpation & inspection: normal inspection of the chest Resp Effort & Inspection: normal respiratory effort Auscultation: diminished lung sounds Cardio Heart sounds: S1 normal heart sound present and S2 normal heart sound present GI Palpation (GI): Soft to palpation Skin General skin exam: no rashes or lesions noted Extrem General: No clubbing and No cyanosis Assessment & Plan Assessment & Plan (1) Pulmonary nodules: Code(s): R91.8 - Other nonspecific abnormal finding of lung field Category: Medical (2) Smoker: Code(s): F17.200 - Nicotine dependence, unspecified, uncomplicated Category: Social Hx Plan continue Wixela daily CT chest in 3 months Tobacco cessation: pt is not ready to quit. usually cuts down in the winter consider PFTs F/U in 3-4 months Orders: Orders CT chest wo IV con 3 Months R91.8 - Other nonspecific abnormal finding of lung field Coding Level of Care Code Est Pt Level 4 (46698) Complex EM visit Add On G2211 Diagnoses Pulmonary nodules R91.8 Smoker F17.200 Time Spent (min) 17
--- OUTSIDE RECORDS SUMMARY | 2024-03-27 11:17 | XMS_ITS | Continuity of Care Document ---
Author Organization [facility] Address [address] [address] Phone Care Team Providers Care Willow Worker Name Role Phone Farrukh Saunders MD Unavailable [...] on Encounter Est Patient E/M Moderate MDM [facility], [address] [place], [place], [id number] , [place] tel:[phone] [facility] Follow Up of Vitreomacular adhesion (chief complaint) Vitreomacular adhesion, left eyePuckering of macula, bilateral Sep-1 2 Chip Chadwick. [address] [facility] [address], [place], [place], [id number], [place]. tel:[phone] Referring Provider: Juan Joe, [address] [place] [address], [address] . tel:[phone] [facility], [address], [place], [address] , [place] [phone] [facility] routine exam (chief complaint) Vitreomacular adhesion, left eye Mar-3 2 Rosita Martinez. [address], [place], [address], [place]. tel:[phone] Referring Provider: Juan Joe, [address] [place], [address] . tel:[phone] [facility], [address] [place], [place], [address] , [place] tel:[phone] [facility] VMT (chief complaint) Vitreomacular adhesion, left eye Sep-2 1 Rosita Martinez. [address], [place], [address], [place]. tel:[phone] Referring Provider: Juan Joe, [address] [place], [address] . tel:[phone] [facility], [address] [place], [place], [address] , tel:[phone] [facility] Presence of intraocular lens 1 Senica Sly. [address] [facility], [place], [place], [address], . tel:[phone] Referring Provider: Paco Willson, [address] [place], [address] . tel:[phone] [facility], [address] [place], [place], [id number] , tel:[phone] [facility] Presence of intraocular lens 1 Senica Sly. [address] [facility] [address] [facility], [place], [place], [address], [place]. tel:[phone] Referring Provider: Paco Willson, [address] [place], [address] . tel:[phone] [facility], [address] [place], [place], [address] , tel:[phone] [facility] Encounter for surgical aftercare following surgery on a sense organ 1 Senica Sly. [address] [facility] [address] [facility], [place], [place], [address], [place]. tel:[phone] Referring Provider: Paco Willson, [address] [place], [address] . tel:[phone] [facility], [address] [place], [address] , [place] tel:[phone] [facility] Encounter for surgical aftercare following surgery on a sense organ 1 Senica Sly. [address] [facility] [address] [facility], [place], [place], [address], [place]. tel:[phone] Referring Provider: Paco Willson, [address] [place], [place], [address] . tel:[phone] New Patient E/M Low MDM [facility], [address], [place], [place], [address] , [place] [phone] [facility] Encounter for other preprocedural examinationCombi joi forms of age-related cataract, bilateral June-0 1 Tobiasrolo Boston. [address] [place], [place], [address], [place]. tel:[phone] Referring Provider: Paco Willson, [address] [place], [place], [address] . tel:[phone] [facility], [address] [place], [place], [address] , [place] [phone] [facility] blurry vision (chief complaint)Glar e (chief complaint)Floa ters (chief complaint) Vitreomacular adhesion, left eyeCombined forms of age-related cataract, bilateralCombine d forms of age-related cataract, left eyeRegular astigmatism, bilateral Apr-0 1 Rj Antonio. [address] [place], [place], [place], [address], [place]. tel:[phone] Referring Provider: Juan Joe, [address] [place], [address] . tel:[phone] [facility], [address] [place], [place], [address] , [place] tel:[phone] [facility] Vitreomacular adhesion, left eye Mar-2 1 Rosita Martinez. [address] [place], [place], [address], [place]. tel:[phone] Referring Provider: Sly Monge, [address], [place], [address] . tel:[phone] [facility], [address] [place] [address], [id number] , tel:[phone] [facility] Combined forms of age-related cataract, bilateralVitreom acular adhesion, left eyeCystoid macular degeneration, left eyeType 2 diabetes mellitus without complications Apr- 1 Alirio Heart. [address] [facility], [place], [place], [address], [place]. tel:[phone] Referring Provider: Sly Monge, [address] [facility], [place], [address] . tel:[phone] [facility], [address] [place] [address], [id number] , [phone] [facility] Combined forms of age-related cataract, bilateral Dec-1 0-201 9 Alirio Heart. [address] [facility] [address] [facility], [place], [place], [address], . tel:[phone] Referring Provider: Sly Monge, [address] [facility], [place], [address] . tel:[phone] Family History Family Member Type Diagnosis Age At Onset Daughter Problem (finding) glaucoma Mother Problem (finding) glaucoma Payers Payer name Insurance type Covered republican ID Authoriza tion(s) [employer] Gold Plus PPO HMO Advantage CI [id number] Social History Type Description Quantity Date [...] Future Order: Radiology Order OC T Retina ([id number]), Ordered on: Ordered Future Order: Radiology Order OC T [facility] ([id number]), Ordered on: Ordered History Of Present Illness [...]
== END 2024-03-27 10:55 | disposition home or self-care (01) ==
PROVIDERS: PCP Internal Medicine; Visit Provider Hospitalist
DX: R91.8 Other nonspecific abnormal finding of lung field (principal); F17.200 Nicotine dependence, unspecified, uncomplicated
CPT/HCPCS: 99214; G2211

== ENCOUNTER → 2024-03-27 10:27 | Outpatient (BNVA) | payer MEDICARE, SELFPAY | PROVIDERS: PCP Internal Medicine; Visit Provider Hospitalist | DX: R91.8 Other nonspecific abnormal finding of lung field (principal); F17.210 Nicotine dependence, cigarettes, uncomplicated | CPT/HCPCS: 99212 ==

== ENCOUNTER 2024-04-17 10:20 | Outpatient (AMB) | payer MEDICARE, SELFPAY ==
--- NOTE | 2024-04-17 10:21 | MHC.OFFVIS ---
Vital Signs 04/17/24 10:28 Height 5 ft Weight 157 lb BMI 30.7 BP 131/61 Blood Pressure Location Rt brachial Position Sitting Pulse 71 Intake Visit Reasons: ? hernia on her stoma Intake Note: This patient presents for questions or parastomal hernia. Pt c/o; no pain, reports bulge. Spreader Box Operator Required: No Accompanied by: Family/Other Allergies No Known Allergies Allergy (Verified 04/17/24 10:29) Medication List - Last Reconciled 04/17/24 by Cuong Noland MD albuterol sulfate 90 mcg/actuation 2 puffs inhalation Q4H PRN amoxicillin-pot clavulanate 875-125 mg 1 tab PO BID aspirin 81 mg PO BEDTIME atenolol 25 mg PO BEDTIME atorvastatin 20 mg PO BEDTIME fluconazole 150 mg PO DAILY 3 days fluticasone propion-salmeterol 250-50 mcg/dose (Wixela Inhub) 1 inh inhalation Q12H 30 days lisinopril-hydrochlorothiazide 10-12.5 mg 1 tab PO BEDTIME oxycodone-acetaminophen 5-325 mg (Percocet) 1 tab PO Q4-6H PRN HPI HPI ? hernia on her stoma: Details: [age] year old female here for a bulge around her colostomy. 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 She was deemed to be at high risk for anesthesia at that time. Her colostomy is functioning well. She says she has noticed this ?bulge? around her stoma for about a few weeks now. She denies any pain or tenderness. She denies GI complaints. She does have significant COPD and gets short of breath easily. [facility] Medical History (Updated 04/17/24 @ 10:38 by Cuong Noland MD) Parastomal hernia Pulmonary nodules Chronic back pain Smoker Hypertension Surgical History Hx of surgical procedure (~12/24/23) H/O removal of cyst History of hysterectomy H/O hernia repair Previous section Social History Household Members: Family Housing: House Are you a primary healthcare interpreter to a significant other at home: No Do you presently have visiting nurse or other home services: No Comment: rings appropriately Patient Tobacco Use Status: Current everyday Tobacco user Tobacco use type: Cigarette Cigarettes Per Day: 3 Years Smoked: 50 Second Hand Smoke Exposure: No Advance Directives Date on File: 12/22/23 service: No Review of Systems Const Denies chills and Denies fever(s) Card Denies chest pain at rest and Reports dyspnea on exertion Resp Denies cough and Reports dyspnea on exertion GI Details: Colostomy functioning well with good output Denies abdominal pain Physical Exam Vital Signs: Last Vital Signs Pulse 71 04/17/24 10:28 BP 131/61 04/17/24 10:28 BMI result Body Mass Index 30.7 Const General: no acute distress Nutritional Appearance: obese Resp Effort & Inspection: normal respiratory effort Cardio Rate: regular rate GI Other: Loop Colostomy in the left side with circumferentially bulge around this consistent with a parastomal hernia, nontender Palpation (GI): Soft to palpation, not firm and no guarding Assessment & Plan Assessment & Plan (1) Parastomal hernia: Code(s): K43.5 - Parastomal hernia without obstruction or gangrene Category: Medical Plan: This is fairly asymptomatic. She denies any pain or tenderness. She has good function I told her therefore that it does not appear that she will benefit from any intervention for now. She has significant COPD and was considered to present with perioperative risks from anesthesia. It may be best to hold off on any surgical intervention as best as possible I did tell her that if she has symptoms including poor stoma function and severe pain, she should come back to the office to be re-evaluated. She understands the plan well. Her daughter was with her during the visit. Coding Level of Care Code Est Pt Level 3 (70816) Diagnoses Parastomal hernia K43.5
[2024-04-17 10:28] VITALS: BP 131/61; PULSE 71; BMI 30.7
--- OUTSIDE RECORDS SUMMARY | 2024-04-17 11:33 | XMS_ITS | Continuity of Care Document ---
Author Organization [facility] Address [address] [address] Phone Care Team Providers Care Lockstitch Hemmer Name Role Phone Farrukh Saunders MD Unavailable [...] on Encounter Est Patient E/M Moderate MDM [facility], [address] [place], [place], [address] , [place] tel:[phone] [facility] Follow Up of Vitreomacular adhesion (chief complaint) Vitreomacular adhesion, left eyePuckering of macula, bilateral Sep-1 2 Chip Chadwick. [address] [place], [place], [address], [place]. tel:[phone] Referring Provider: Juan Joe, [address] [place] [address], [address] . tel:[phone] [facility], [address], [place], [address] , [place] [phone] [facility] routine exam (chief complaint) Vitreomacular adhesion, left eye Mar-3 2 Rosita Martinez. [address], [place], [address], [place]. tel:[phone] Referring Provider: Juan Joe, [address], [place], [address] . tel:[phone] [facility], [address] [place], [place], [address] , [place] tel:[phone] [facility] VMT (chief complaint) Vitreomacular adhesion, left eye Sep-2 1 Rosita Martinez. [address], [place], [address], [place]. tel:[phone] Referring Provider: Juan Joe, [address], [place], [address] . tel:[phone] [facility], [address] [place], [place], [address] , tel:[phone] [facility] Presence of intraocular lens 1 Senica Sly. [address] [facility], [place], [place], [address], . tel:[phone] Referring Provider: Paco Willson, [address] [place], [address] . tel:[phone] [facility], [address] [place], [place], [address] , tel:[phone] [facility] Presence of intraocular lens 1 Senica Sly. [address] [facility] [address] [facility], [place], [place], [address], [place]. tel:[phone] Referring Provider: Paco Willson, [address] [place], [address] . tel:[phone] [facility], [address] [place], [place], [address] , [place] tel:[phone] [facility] Encounter for surgical aftercare following surgery on a sense organ 1 Senica Sly. [address] [facility] [address] [facility], [place], [place], [address], [place]. tel:[phone] Referring Provider: Paco Willson, [address] [place], [address] . tel:[phone] [facility], [address] [place], [place], [address] , [place] tel:[phone] [facility] Encounter for surgical aftercare following surgery on a sense organ 1 Senica Sly. [address] [facility] [address] [facility], [place], [place], [address], [place]. tel:[phone] Referring Provider: Paco Willson, [address] [place], [address] . tel:[phone] New Patient E/M Low MDM [facility], [address] [place], [place], [place], [address] , [place] [phone] [facility] Encounter for other preprocedural examinationCombi joi forms of age-related cataract, bilateral June-0 1 Tobiasrolo Boston. [address] [place], [place], [address], [place]. tel:[phone] Referring Provider: Paco Willson, [address] [place], [address] . tel:[phone] [facility], [address] [place], [place], [address] , [place] tel:[phone] [facility] blurry vision (chief complaint)Glar e (chief complaint)Floa ters (chief complaint) Vitreomacular adhesion, left eyeCombined forms of age-related cataract, bilateralCombine d forms of age-related cataract, left eyeRegular astigmatism, bilateral Apr-0 1 Rj Antonio. [address] [place], [place], [place], [address], [place]. tel:[phone] Referring Provider: Juan Joe, [address] [place], [address] . tel:[phone] [facility], [address] [place], [place], [address] , [place] tel:[phone] [facility] Vitreomacular adhesion, left eye Mar-2 1 Rosita Martinez. [address] [place], [place], [address], [place]. tel:[phone] Referring Provider: Sly Monge, [address], [place], [address] . tel:[phone] [facility], [address] [place] [address], [id number] , [phone] [facility] Combined forms of age-related cataract, bilateralVitreom acular adhesion, left eyeCystoid macular degeneration, left eyeType 2 diabetes mellitus without complications 1 Alirio Heart. [address] [facility], [place], [place], [address], . tel:[phone] Referring Provider: Sly Monge, [address] [facility], [place], [address] . tel:[phone] [facility], [address] [place] [address], [id number] , [phone] [facility] Combined forms of age-related cataract, bilateral Dec- 0-201 9 Alirio Heart. [address] [facility], [place], [place], [address], . tel:[phone] Referring Provider: Sly Monge, [address] [facility], [place], [address] . tel:[phone] Family History Family Member Type Diagnosis Age At Onset Daughter Problem (finding) glaucoma Mother Problem (finding) glaucoma Payers Payer name Insurance type Covered republican ID Authoriza tirenetta(s) [employer] Gold Plus PPO HMO Advantage CI [id number] Social History Type Description Quantity Date [...] Future Order: Radiology Order OC T Retina ([id number]), Ordered on: Ordered Future Order: Radiology Order OC T Retina ([id number]), Ordered on: Ordered History Of Present Illness [...]
== END 2024-04-17 10:35 | disposition home or self-care (01) ==
PROVIDERS: PCP Internal Medicine; Visit Provider Surgery
DX: K43.5 Parastomal hernia without obstruction or gangrene (principal)
CPT/HCPCS: 99213

== ENCOUNTER → 2024-04-17 10:20 | Outpatient (BNVA) | payer MEDICARE, SELFPAY | PROVIDERS: PCP Internal Medicine; Visit Provider Surgery | DX: K43.5 Parastomal hernia without obstruction or gangrene (principal) | CPT/HCPCS: 99212 ==

== ENCOUNTER 2024-05-13 08:57 | Inpatient (IN) | payer MEDICARE, SELFPAY ==
--- NOTE | ~2024-05-13 | XR_ITS ---
CLINICAL HISTORY: cough x3 weeks 2 view chest x-ray Comparison: CT/SR - CT CHEST WO IV CON - 03/17/24 14:02 EST Findings: Chronic mild reticular prominence. Stable sized left lower lobe pulmonary nodule. Normal size heart. Chronic appearing displaced proximal right humeral fracture. IMPRESSION: Mild reticular prominence without focal consolidation. This document has been electronically signed by: Michael Benítez MD on 05/13/2024 09:32:33
--- NOTE | ~2024-05-13 | CT_ITS ---
CLINICAL HISTORY: rule out colovaginal colocvesicular fistula CT abdomen and pelvis without contrast Comparison: Chest CT from 03/17/[address] of the abdomen pelvis from 12/21/2023 Findings: Solid pulmonary nodule measures 1 cm in the left lower lobe (imaged 3 series 7), 1 cm on 05/13/2024 and 1 cm on 12/21/2023. Marked cholelithiasis by noncontrast CT. Liver is unremarkable for noncontrast CT with artifacts. Bilateral renal hilar calcifications are favored to be vascular. No obstructing stone in either kidney or either ureter. Redemonstration of multiple phleboliths in the pelvis. Additional vascular calcifications including aorta and its branches. Redemonstration of the calcium in the pancreas as can be seen with chronic and prior pancreatitis. Multiple large cholelithiasis are redemonstrated. The adrenal glands are unchanged. The spleen is nonenlarged. No small bowel obstruction given enteric contrast in large intestine. Enteric contrast extends to the partially imaged ventral hernia which contains fat, mesentery, portion of the stomach, and greater than 10 cm of the large intestine. No enteric contrast in the large intestine distal to the ventral hernia to exclude the reported colovesicular fistula or colovaginal fistula. Overall decrease and near-complete resolution of the inflammatory stranding in the pelvis relative to stranding on 12/21/2023. No definite gas in the urinary bladder to defined vesicular fistula. Mild wall thickening of the urinary bladder is nonspecific and may be due to cystitis. No drainable abscess or free intraperitoneal air in the [id number]. Grade 1 anterolisthesis and vacuum disc phenomenon at L4-L5. Degenerative changes include multifocal facet arthropathy. Mild osteoarthritis of the both hips. IMPRESSION: 1. Large ventral hernia contains stomach and large intestine. 2. No small bowel obstruction. 3. No gas in the urinary bladder. Mild wall thickening of the urinary bladder is nonspecific and may reflect cystitis. 4. No enteric contrast in the distal large intestine at the time of the imaging. Consider attention on follow-up, if clinically indicated. 5. Cholelithiasis. This document has been electronically signed by: Michael Dexter MD on 05/13/2024 19:48:49
[2024-05-13 08:59] VITALS: BP 108/58; PULSE 59; RESP 20; TEMP 37; O2SAT 96; BMI 27.2
[2024-05-13 09:22] LABS: MANUAL DIFF FLAG NO
[2024-05-13 09:25] LABS: Basophils Percent Auto 0.4 % (0-2); Hemoglobin 14.2 g/dl (12.0-16.0); Imm Gran Abs Auto 0.04 X10*3/uL (0.00-0.03); Imm Gran Pct Auto 0.6 % (0.0-0.4); Lymphocytes Absolute Auto 1.6 X10*3/uL (1.2-4.9); Lymphocytes Percent Auto 22.5 % (20-40); Mean Corpuscular HGB Conc 33.8 g/dl (31.0-35.0); Mean Corpuscular Hemoglobin 28.5 pg (27.0-33.0); Mean Corpuscular Volume 84.2 fL (80.0-98.0); Mean Platelet Volume 9.8 fL (9.4-12.3); Monocytes Absolute Auto 0.8 X10*3/uL (0.1-1.2); Monocytes Percent Auto 10.9 % (2-11); Neutrophils Absolute Auto 4.7 x10*3/uL (2.0-8.3); Neutrophils Percent Auto 65.6 % (45-73); Platelet Count 251 X10*3/uL (160-400); Red Blood Count 4.99 X10*6/uL (4.20-5.50); Red Cell Distribution Width 15.6 % (11.0-16.0); White Blood Count 7.1 X10*3/uL (4.8-10.8)
[2024-05-13 09:43] LABS: Alanine Aminotransferase 32 U/L (0-31); Albumin Level 3.9 g/dL (3.5-5.0); Alkaline Phosphatase 95 U/L (39-117); Anion Gap 17 (12-20); Aspartate Amino Transferase 37 U/L (5-31); Bilirubin Total 0.3 mg/dL (0.0-1.0); Blood Urea Nitrogen 34 mg/dL (9-16); Carbon Dioxide 21 mmol/L (22-29); Chloride 99 mmol/L (96-108); Creatinine Clr Calc Pharmacy 26.4; Estimated Glomerular Filt Rate 34; Glucose Random 143 mg/dL (60-115); Magnesium 1.8 mg/dL (1.6-2.6); Potassium 3.9 mmol/L (3.3-5.1); Sodium 133 mmol/L (135-145); Total Protein 8.8 g/dL (6.5-8.0)
[2024-05-13 10:10] LABS: Influenza A PCR NEGATIVE (Negative); Influenza B PCR POSITIVE (Negative); Resp Syncy Virus RNA Qual PCR NEGATIVE (Negative); SARS COV2 PCR INHOUSE NEGATIVE (Negative)
--- NOTE | 2024-05-13 12:24 | ED_ITS ---
HPI - General Adult General Chief complaint: General Medical Stated complaint: multiple complaints Time Seen by Provider: 05/13/24 12:06 Source: patient and family (Daughter) Mode of arrival: ambulatory Limitations: no limitations History of Present Illness ED Provider: DR. Chowdhury HPI narrative: 83-year-old female brought in with her daughter for evaluation of generalized body ache, nonproductive cough, chills, subjective fever, and decrease oral intake. No exposure to sick contacts, no recent travel. History of colovaginal fistula with left colostomy. Patient also noticed that she has been having vaginal brownish discharge. Two days ago noted black drainage in the colostomy and the was related to using antibiotic recently. As per daughter the colostomy drainage now is brownish. Related Data Home Medications ?Medication ?Instructions ?Recorded ?Confirmed atenolol 25 mg tablet 25 mg PO BEDTIME 12/21/23 05/13/24 atorvastatin 20 mg tablet 20 mg PO BEDTIME 12/21/23 05/13/24 lisinopril 10 1 tab PO BEDTIME 12/21/23 05/13/24 mg-hydrochlorothiazide 12.5 mg tablet Allergies Allergy/AdvReac Type Severity Reaction Status Date / Time No Known Allergies Allergy Verified 05/13/24 09:06 Review of Systems 2 Review of Systems: All other systems are reviewed and are negative Constitutional: Reports as per HPI and Reports no additional constitutional complaints Eyes: Reports as per HPI and Reports no additional eye complaints Reports system reviewed and no additional complaints, except as documented Cardiovascular: Reports as per HPI and Reports no additional cardiovascular complaints Respiratory: Reports as per HPI and Reports no additional respiratory complaints Gastrointestinal: Reports as per HPI and Reports no additional gastrointestinal complaints Genitourinary: Reports no additional female genitourinary complaints Musculoskeletal: Reports no additional musculoskeletal complaints Skin/Breast: Reports system reviewed and no additional complaints, except as docu Psychiatric: Reports no additional psychiatric complaints Endocrine: Reports no additional endocrine complaints Hematologic/Lymphatic: Reports no additional hematologic/lymphatic complaints Allergic/Immunologic: Reports no additional allergic/immunologic complaints Reports system reviewed and no additional complaints, except as documented and Reports Abnormal speech present [facility] Past Medical History Medical History Parastomal hernia Pulmonary nodules Chronic back pain Smoker Hypertension Surgical History Hx of surgical procedure (~12/24/23) H/O removal of cyst History of hysterectomy H/O hernia repair Previous section Social History Social History Household Members: Family Housing: House Are you a primary caregiver assisted living to a significant other at home: No Do you presently have visiting nurse or other home services: No Comment: rings appropriately Patient Tobacco Use Status: Current everyday Tobacco user Tobacco use type: Cigarette Cigarettes Per Day: 3 Years Smoked: 50 Smoked in Last 30 Days: Yes Second Hand Smoke Exposure: No Use of substances other than those prescribed or required for medical reasons: No Advance Directives: Yes Advance Directives on File: Yes Advance Directives Date on File: 12/22/23 service: No Physical Exam ED Vital Signs: Vital Signs - 24 hr 05/13/24 08:59 Temperature 98.6 F Pulse Rate 59 Respiratory Rate 20 Blood Pressure 108/58 L Pulse Oximetry 96 Oxygen Delivery Method Room Air BMI result Body Mass Index 27.2 Vital signs have been reviewed and appear to be correct. Blood pressure elevated. Heart rate normal. Respiratory rate normal. Temperature normal. Oxygen saturation normal. Appearance: Alert. Oriented X3. No acute distress. Head: Normal external exam. Normocephalic. Atraumatic. No Mirza signs noted. No raccoon eyes noted Eyes: PERRLA. EOMI. Conjunctiva and sclera normal. Eyelids normal. ENT: TM's Normal. Pharynx normal. Uvula midline. Moist mucous membranes. No trismus noted. No drooling noted. No muffled voice noted. Neck: Normal inspection. Neck supple. FROM. No adenopathy. Thyroid Normal. No meningeal signs. No neck mass noted. CVS: Normal heart rate and rhythm. Heart sound normal. No murmurs noted. Pulses normal throughout. Respiratory: No respiratory distress. Painless inspiration. Breath sounds normal. No wheezes/rales/rhonchi noted. Chest nontender. No accessory muscle usage noted or decreased air movement noted. Abdomen: Soft, colostomy bag containing brownish discharge. Bowel sounds normal in all 4 quadrants. No distention noted. No organomegaly noted. No visible injury noted. Back: No CVA tenderness. Full range of motion noted. Skin: Skin warm and dry. Normal skin color. Normal skin turgor. No rashes/lesions/lacerations noted. Extremities: No lower extremity edema. Extremities exhibit normal range of motion. Extremities nontender. Neuro: Oriented X 3. Cranial nerve exam: II-XII are grossly intact No motor deficit. No sensory deficit. Reflexes normal. Course Reevaluation(s) Reevaluation #1: Influenza a symptoms for 4 days with decreased p.o. intake causing JHONNY, admit, IV fluids. Patient still unable to give urine sample to rule out UTI will hydrate. Reportedly had black drainage stool in the colostomy bag which is improving now to a brown stool which is guaiac positive with stable H&H. Time: 12:35 Reevaluation #2: UTI, no sepsis, will cover with ceftriaxone. Time: 15:31 Medications Administered Generic Name Dose Route Start Last Admin Trade Name Freq PRN Reason Stop Dose Admin Lactated Ringer's 1,000 mls @ 100 mls/hr 05/13/24 14:30 05/13/24 14:45 Lr IVCONT 05/14/24 00:29 100 mls/hr .Q10H SUYAPA Administration Discontinued Medications Generic Name Dose Route Start Last Admin Trade Name Freq PRN Reason Stop Dose Admin Acetaminophen 650 mg 05/13/24 12:28 05/13/24 12:34 Acetaminophen 325 Mg Tablet PO 05/13/24 12:29 650 mg ONCE ONE Administration Sodium Chloride 1,000 mls @ 999 mls/hr 05/13/24 12:18 05/13/24 13:27 Ns IV 05/13/24 13:18 Infused .Q1H1M ONE Infusion Medical Decision Making Differential Diagnosis Differential Diagnoses: The differential diagnosis associated with the presentation includes (Viral infection, UTI, dehydration, JHONNY, pneumonia, pneumothorax, pleural effusion.) Admission/Observation Consideration of admission/observation: Escalation of care including admission/observation considered Consult Healthcare Provider Management of the patient was discussed with: Hospitalist (Dr. Lopez) Lab Data MDM Lab Attestation statement: I reviewed the patient's lab results. 05/13/24 09:18 05/13/24 09:18 Labs: Lab Results 05/13/24 05/13/24 Range/Units 09:18 12:28 WBC 7.1 (4.8-10.8) X10*3/uL RBC 4.99 D (4.20-5.50) X10*6/uL Hgb 14.2 D (12.0-16.0) g/dl Hct 42.0 (37.0-47.0) % MCV 84.2 (80.0-98.0) fL MCH 28.5 (27.0-33.0) pg MCHC 33.8 (31.0-35.0) g/dl RDW 15.6 (11.0-16.0) % Plt Count 251 (160-400) X10*3/uL MPV 9.8 (9.4-12.3) fL Immature Gran % (Auto) 0.6 H (0.0-0.4) % Neut % (Auto) 65.6 (45-73) % Lymph % (Auto) 22.5 (20-40) % [place] % (Auto) 10.9 (2-11) % Eos % (Auto) 0.0 (0-4) % Baso % (Auto) 0.4 (0-2) % Lymph # (Auto) 1.6 (1.2-4.9) X10*3/uL [place] # (Auto) 0.8 (0.1-1.2) X10*3/uL Eos # (Auto) 0.0 (0.0-0.4) X10*3/uL Baso # (Auto) 0.0 (0.0-0.2) X10*3/uL Abs Immat Gran (auto) 0.04 H (0.00-0.03) X10*3/uL Absolute Neuts (auto) 4.7 (2.0-8.3) x10*3/uL Absolute Nucleated RBC 0.000 (0.0-0.012) X10*3/uL Nucleated RBC % (auto) 0.0 (0.0-0.2) /100WBC Sodium 133 L (135-145) mmol/L Potassium 3.9 (3.3-5.1) mmol/L Chloride 99 (96-108) mmol/L Carbon Dioxide 21 L (22-29) mmol/L Anion Gap 17 (12-20) BUN 34 H (9-16) mg/dL Creatinine 1.48 H (0.5-1.4) mg/dL Estim Creat Clear Calc 26.4 Estimated GFR 34 Random Glucose 143 H (60-115) mg/dL Calcium 9.0 D (8.4-10.2) mg/dL Magnesium 1.8 (1.6-2.6) mg/dL Total Bilirubin 0.3 (0.0-1.0) mg/dL AST 37 H (5-31) U/L ALT 32 H (0-31) U/L Alkaline Phosphatase 95 (39-117) U/L Total Protein 8.8 H (6.5-8.0) g/dL Albumin 3.9 (3.5-5.0) g/dL Stool Occult Blood POSITIVE (NEGATIVE) Influenza Type A (PCR) NEGATIVE (Negative) Influenza Type B (PCR) POSITIVE A (Negative) RSV RNA Qual (PCR) NEGATIVE (Negative) SARS-CoV-2 RNA (RT-PCR) NEGATIVE (Negative) Independent Interpretation I performed an independent interpretation of an: Plain X-Ray (Chest:Mild reticular prominence without focal consolidation.) Radiology Impression Discussion of test interpretation with radiology: I have reviewed the radiologist's reading. Discharge Plan Discharge Clinical Impression: Acute dehydration, Influenza A, JHONNY (acute kidney injury), Acute UTI Patient Disposition: Admitted As Inpatient
[2024-05-13] MEDS: 0.9 % Sodium Chloride 1,000 ML 999 ML IV (12:26)
[2024-05-13] MEDS: Acetaminophen 325 MG TABLET 650 MG PO ×2 (12:34→20:34)
[2024-05-13 12:36] LABS: OBS Int Ctl Valid YES; OBS1 POSITIVE (NEGATIVE)
--- NOTE | 2024-05-13 12:59 | PC.NURSE ---
Pt comes to ED today from home with complaints of generalized weakness/body aches x5 days. Also, Pt reports ongoing vaginal discharge with recent Abx that is progressively getting worse. A&Ox3 VSS (+) Flu 20g LAC Blood work, stool stample sent for testing.
--- NOTE | 2024-05-13 14:26 | PM.IMHP ---
History of Present Illness Date of Service: 05/13/24 Attending physician on admission: Derrick Lopez Chief Complaint: weakness This is an 83-year-old female who presents to the emergency department with multiple complaints. For the past 4 days patient reports generalized weakness, decreased oral intake, generalized body aches and cough. Her cough is dry. She denies any recent sick contacts. She does report associated chills. In the emergency department she also mentioned an episode of dark output in her colostomy. Her stools were guaiac positive but her H/H was normal. She denied any overt bleeding. She did report for the past 1 week she has been having dark vaginal discharge and she was diagnosed to have ?bacterial infection? her discharge primarily occurs when she is urinating. She has history of colovaginal fistula requiring transverse loop colostomy in 01/12/2024. Since that time she has not had any vaginal discharge. She denies abdominal pain, dysuria. In the emergency department lab work was significant for JHONNY with creatinine of 1.48, AST/ALT slightly 37/32. She also tested positive for influenza B. No hypoxia, chest x-ray negative for pneumonia. Review of Systems Review of Systems: Yes all other systems are reviewed and are negative Constitutional: Constitutional: Reports chills and Reports fever(s) Cardiovascular: Cardiovascular: Denies chest pain, Denies palpitations and Denies dyspnea Respiratory: Respiratory: Reports cough and Denies dyspnea Gastrointestinal: Gastrointestinal: Denies abdominal pain, Denies nausea and Denies vomiting Endocrine: Endocrine: Denies palpitations [facility] Medical History Parastomal hernia Pulmonary nodules Chronic back pain Smoker Hypertension Surgical History Hx of surgical procedure (~12/24/23) H/O removal of cyst History of hysterectomy H/O hernia repair Previous section Social History Household Members: Family Housing: House Are you a primary child care development specialist to a significant other at home: No Do you presently have visiting nurse or other home services: No Comment: rings appropriately Patient Tobacco Use Status: Current everyday Tobacco user Tobacco use type: Cigarette Cigarettes Per Day: 3 Years Smoked: 50 Smoked in Last 30 Days: Yes Second Hand Smoke Exposure: No Use of substances other than those prescribed or required for medical reasons: No Advance Directives: Yes Advance Directives on File: Yes Advance Directives Date on File: 12/22/23 service: No Meds Allergies Allergy/AdvReac Type Severity Reaction Status Date / Time No Known Allergies Allergy Verified 05/13/24 09:06 Home Medications ?Medication ?Instructions ?Recorded ?Confirmed ?Last Taken ?Type atenolol 25 mg tablet 25 mg PO BEDTIME 12/21/23 05/13/24 05/12/24 History atorvastatin 20 mg tablet 20 mg PO BEDTIME 12/21/23 05/13/24 05/12/24 History lisinopril 10 1 tab PO BEDTIME 12/21/23 05/13/24 05/12/24 History mg-hydrochlorothiazide 12.5 mg tablet Physical Exam Vital Signs and Narrative: Vital Signs: Last Vital Signs Temp 98.6 F 05/13/24 08:59 Pulse 59 05/13/24 08:59 Resp 20 05/13/24 08:59 BP 108/58 L 05/13/24 08:59 Pulse Ox 96 05/13/24 08:59 O2 Del Method Room Air 05/13/24 08:59 BMI result Body Mass Index 27.2 Const: General: cooperative, comfortable, no acute distress, alert and awake Nutritional Appearance: average body habitus Orientation/consciousness: patient oriented x3 Resp: Other: coarse breath sounds b/l Effort & Inspection: no respiratory distress and no use of accessory muscles Cardio: Rate: regular rate Neuro: General: patient oriented x3, moves all extremities and CN's II-XI intact bilaterally Extrem: General: Yes no pedal edema Results Labs 05/13/24 09:18 05/13/24 09:18 Labs: Laboratory Results - last 24 hr 05/13/24 05/13/24 09:18 12:28 MCV 84.2 MCH 28.5 MCHC 33.8 RDW 15.6 Plt Count 251 MPV 9.8 Immature Gran % (Auto) 0.6 H Neut % (Auto) 65.6 Lymph % (Auto) 22.5 [place] % (Auto) 10.9 Eos % (Auto) 0.0 Baso % (Auto) 0.4 Lymph # (Auto) 1.6 [place] # (Auto) 0.8 Eos # (Auto) 0.0 Baso # (Auto) 0.0 Abs Immat Gran (auto) 0.04 H Absolute Neuts (auto) 4.7 Absolute Nucleated RBC 0.000 Nucleated RBC % (auto) 0.0 Anion Gap 17 Estim Creat Clear Calc 26.4 Estimated GFR 34 Random Glucose 143 H Calcium 9.0 D Magnesium 1.8 Total Bilirubin 0.3 AST 37 H ALT 32 H Alkaline Phosphatase 95 Total Protein 8.8 H Albumin 3.9 Stool Occult Blood POSITIVE Influenza Type A (PCR) NEGATIVE Influenza Type B (PCR) POSITIVE A RSV RNA Qual (PCR) NEGATIVE SARS-CoV-2 RNA (RT-PCR) NEGATIVE Assessment and Plan (1) JHONNY (acute kidney injury): Status: Acute (2) Influenza: Status: Acute Plan This is an 83-year-old female with history of hypertension, hyperlipidemia, history of colovaginal fistula status post transverse loop colostomy 12/2023 with subsequent parastomal hernia who presents to the emergency department with 4 days of weakness, decreased p.o. intake malaise and body aches found to have JHONNY and influenza B Acute kidney injury Likely due to decreased p.o. intake in the setting of influenza Gentle IV fluid Avoid nephrotoxins; hold lisinpril/HCTZ Follow renal function Influenza B No hypoxia, chest x-ray negative for pneumonia renal dosed tamiflu Symptomatic support Mild transaminitis Likely due to acute viral illness No abdominal pain Trend Mild hyponatremia Likely due to decreased p.o. intake Follow BMP Dark vaginal discharge h/o colovaginal fistula recently dx with bacterial infection and was prescribed fluconazole due to history of dark vaginal discharge/discharge with urination, concern for possible recurrent/new fistula will obtain ct abdomen/pelvis with po contrast - if abnormal will consult general surgery possible UTI given empiric abx in ed no sepsis follow urine culture Hypertension Hold lisinopril/hydrochlorothiazide for JHONNY Continue atenolol HLD Hold statin dvt ppx - mechanical devices for heme +stools code status dnr/dni Quality Stroke Does the patient have a stroke diagnosis?: No VTE Prior VTE?: No VTE Risk Level:: Medical - moderate - high VTE Device Contraindication: N/A - Device Ordered VTE Drug Contraindication: N/A - Med Ordered
[2024-05-13] MEDS: Lactated Ringers 1,000 ML 100 ML IVCONT (14:45)
[2024-05-13 14:56] LABS: Appearance Urine Cloudy; Color Urine Dark Yellow; Glucose Urine UA Negative (Negative); Leukocyte Esterase Urine Moderate (2+) (Negative); Nitrite Urine Negative (Negative); Specific Gravity - Urine 1.015 (1.005-1.025); UMIC TRIGGER UACC YES; Urine Blood Negative (Negative); Urine Ketones Trace mg/dL (Negative); Urine Protein Trace mg/dL (Neg-Trace)
[2024-05-13 15:09] LABS: Bacteria Urine None Seen (None Seen); Calcium Oxalate Crystals Urine Present; Hyaline Casts Urine >20 /LPF (0-2); RBC Urine 0-2 /HPF (0-2); UACC Culture Trigger YES
--- NOTE | 2024-05-13 15:31 | PHA.MEDREC ---
Addendum entered by Kaleb Dotson 05/13/24 15:36: reviewed Original Note: Pharmacy Consult ? Medication Reconciliation Pharmacy has completed the medication reconciliation. Spoke to pt to confirm meds. Pt states they have Wixela/Advair at home but do not use it.
[2024-05-13 15:46] VITALS: BP 118/45; PULSE 68; RESP 16; TEMP 36.9; O2SAT 94
[2024-05-13] MEDS: Oseltamivir Phosphate 30 MG CAPSULE PO (15:57)
[2024-05-13] MEDS: cefTRIAXone sodium 1 GM VIAL IVPUSH (15:57)
--- NOTE | 2024-05-13 17:02 | PC.NURSE ---
Pt finishes PO contrast at approx. 1630.
[2024-05-13] MEDS: Diatrizoate Meglumine, Sodium 30 ML SOLUTION PO (19:12)
[2024-05-13 20:06] VITALS: BP 121/34; PULSE 67; RESP 16; TEMP 36.5; O2SAT 94
[2024-05-13 20:34] VITALS: BP 121/34; PULSE 67
[2024-05-13] MEDS: atenoloL 25 MG TABLET PO (20:34)
[2024-05-14 01:22] VITALS: BP 131/63; PULSE 62; RESP 22; TEMP 36.4; O2SAT 95
[2024-05-14] MEDS: Oseltamivir Phosphate 30 MG CAPSULE PO (02:59)
[2024-05-14 05:37] VITALS: BP 138/53; PULSE 66; RESP 21; TEMP 36.4; O2SAT 94
[2024-05-14 06:57] LABS: Alanine Aminotransferase 22 U/L (0-31); Albumin Level 3.4 g/dL (3.5-5.0); Alkaline Phosphatase 85 U/L (39-117); Anion Gap 12 (12-20); Aspartate Amino Transferase 36 U/L (5-31); Bilirubin Direct < 0.2 mg/dL (0.0-0.5); Bilirubin Total 0.2 mg/dL (0.0-1.0); Blood Urea Nitrogen 25 mg/dL (9-16); Calcium 8.6 mg/dL (8.4-10.2); Carbon Dioxide 21 mmol/L (22-29); Chloride 107 mmol/L (96-108); Creatinine Clr Calc Pharmacy 48.2; Estimated Glomerular Filt Rate > 60; Glucose Random 106 mg/dL (60-115); Sodium 136 mmol/L (135-145); Total Protein 7.7 g/dL (6.5-8.0)
[2024-05-14 07:09] LABS: Hematocrit 37.9 % (37.0-47.0); Mean Corpuscular HGB Conc 34.3 g/dl (31.0-35.0); Mean Corpuscular Hemoglobin 28.4 pg (27.0-33.0); Mean Corpuscular Volume 82.9 fL (80.0-98.0); Mean Platelet Volume 10.6 fL (9.4-12.3); Platelet Count 215 X10*3/uL (160-400); Red Blood Count 4.57 X10*6/uL (4.20-5.50); Red Cell Distribution Width 15.4 % (11.0-16.0); White Blood Count 5.3 X10*3/uL (4.8-10.8)
[2024-05-14] MEDS: 0.9 % Sodium Chloride Flush 3 ML SYRINGE IVFLUSH (08:45)
--- NOTE | 2024-05-14 09:01 | PM.CNGS ---
History of Present Illness Consult details Consult date: 05/14/24 Requesting physician: Mely Alberts Narrative: 83-year-old female patient presenting to the emergency department with generalized weakness, anorexia, body aches and cough. She was also noted to have dark stool from her colostomy. She presented to the emergency department and was determined to have influenza B. she has a prior history of colovaginal fistula and previously underwent a transverse loop colostomy. A CT abdomen and pelvis performed in the emergency department revealed a parastomal hernia containing stomach. Since the CT scan the patient has had a significant output from her colostomy bag due to the oral contrast. She denies any abdominal pain at this time. She denies any vaginal discharge as well. Surgical consultation was requested regarding the peristomal hernia. Review of Systems Constitutional: Constitutional: Reports body ache(s), Reports chills, Reports lethargy and Reports poor appetite Cardiovascular: Cardiovascular: Denies chest pain and Denies irregular heart rhythm Respiratory: Respiratory: Reports chest congestion, Reports cough and Denies hemoptysis Gastrointestinal: Gastrointestinal: Denies abdominal pain, Denies constipation and Reports loose stools Musculoskeletal: Musculoskeletal: Reports myalgias PMFSH Past Medical History Medical History Parastomal hernia Pulmonary nodules Chronic back pain Smoker Hypertension Surgical History Surgical History Hx of surgical procedure (~12/24/23) H/O removal of cyst History of hysterectomy H/O hernia repair Previous section Social History Social History Household Members: Family Housing: House Are you a primary care provider to a significant other at home: No Do you presently have visiting nurse or other home services: No Comment: rings appropriately Patient Tobacco Use Status: Current everyday Tobacco user Tobacco use type: Cigarette Cigarettes Per Day: 3 Years Smoked: 50 Smoked in Last 30 Days: Yes Second Hand Smoke Exposure: No Use of substances other than those prescribed or required for medical reasons: No Advance Directives: Yes Advance Directives on File: Yes Advance Directives Date on File: 12/22/23 service: No Meds Allergies Allergy/AdvReac Type Severity Reaction Status Date / Time No Known Allergies Allergy Verified 05/13/24 09:06 Active Medications: Current Medications Acetaminophen (Acetaminophen 325 Mg Tablet) 650 mg PO Q6H PRN PRN Reason: Pain, Mild 1-3,fever,headache Last Admin: 05/13/24 20:34 Dose: 650 mg Atenolol (Atenolol 25 Mg Tablet) 25 mg PO BEDTIME [facility]; Protocol Last Admin: 05/13/24 20:34 Dose: 25 mg Calcium Carbonate (Calcium Carbonate 750 Mg Tab.Chew) 750 mg PO Q4H PRN PRN Reason: Heartburn Guaifenesin/Dextromethorphan (Guaifenesin Dm 200/20/10 Ml 10 Ml Syrup) 10 ml PO Q6H PRN PRN Reason: Cough Magnesium Hydroxide (Milk Of Magnesia 30 Ml Oral.Susp) 30 ml PO DAILY PRN PRN Reason: Constipation Melatonin (Melatonin 3 Mg Tablet) 6 mg PO BEDTIME PRN PRN Reason: Insomnia Oseltamivir Phosphate (Oseltamivir Phosphate 30 Mg Capsule) 30 mg PO Q12H [facility] Stop: 05/18/24 03:01 Last Admin: 05/14/24 02:59 Dose: 30 mg Sodium Chloride (0.9 % Sodium Chloride Flush 3 Ml Syringe) 3 ml IVFLUSH [facility] Last Admin: 05/14/24 08:45 Dose: 3 ml Home Medications ?Medication ?Instructions ?Recorded ?Confirmed ?Last Taken ?Type atenolol 25 mg tablet 25 mg PO BEDTIME 12/21/23 05/13/24 05/12/24 History atorvastatin 20 mg tablet 20 mg PO BEDTIME 12/21/23 05/13/24 05/12/24 History lisinopril 10 1 tab PO BEDTIME 12/21/23 05/13/24 05/12/24 History mg-hydrochlorothiazide 12.5 mg tablet Physical Exam Vital Signs: Vital Signs: Last Vital Signs Temp 97.6 F 05/14/24 05:37 Pulse 66 05/14/24 05:37 Resp 21 H 05/14/24 05:37 BP 138/53 L 05/14/24 05:37 Pulse Ox 94 05/14/24 05:37 O2 Del Method Room Air 05/14/24 05:37 BMI result Body Mass Index 27.2 Const: General: no acute distress Nutritional Appearance: well nourished Orientation/consciousness: patient oriented x3 Resp: Effort & Inspection: normal respiratory effort, no audible wheezes, Actively coughing and no respiratory distress GI: Other: Abdomen is soft and nondistended. Ostomy is pink and patent with pasty stool without blood. A parastomal hernia is evident but is soft and easily reducible. No tenderness to palpation. Abdomen image: 1. Ostomy and parastomal hernia Skin: Other: Warm, dry, no rash Neuro: General: patient oriented x3 Results Labs 05/14/24 06:02 05/14/24 06:02 Labs: Abnormal lab results 05/13/24 05/13/24 05/14/24 Range/Units 09:18 14:46 06:02 Immature Gran % (Auto) 0.6 H (0.0-0.4) % Abs Immat Gran (auto) 0.04 H (0.00-0.03) X10*3/uL Sodium 133 L (135-145) mmol/L Carbon Dioxide 21 L 21 L (22-29) mmol/L BUN 34 H 25 H (9-16) mg/dL Creatinine 1.48 H (0.5-1.4) mg/dL Random Glucose 143 H (60-115) mg/dL AST 37 H 36 H (5-31) U/L ALT 32 H (0-31) U/L Total Protein 8.8 H (6.5-8.0) g/dL Albumin 3.4 L (3.5-5.0) g/dL Ur Leukocyte Esterase Moderate (2+) H (Negative) Urine WBC 11-20 H (0-5) /HPF Influenza Type B (PCR) POSITIVE A (Negative) Short CBC 05/13/24 05/14/24 Range/Units 09:18 06:02 WBC 7.1 5.3 (4.8-10.8) X10*3/uL Hgb 14.2 D 13.0 (12.0-16.0) g/dl Hct 42.0 37.9 (37.0-47.0) % Plt Count 251 215 (160-400) X10*3/uL BMP 05/13/24 05/14/24 09:18 06:02 Sodium 133 L 136 Potassium 3.9 4.0 Chloride 99 107 Carbon Dioxide 21 L 21 L BUN 34 H 25 H Creatinine 1.48 H 0.81 Calcium 9.0 D 8.6 Liver Function 05/13/24 05/14/24 Range/Units 09:18 06:02 Total Bilirubin 0.3 0.2 (0.0-1.0) mg/dL Direct Bilirubin < 0.2 (0.0-0.5) mg/dL AST 37 H 36 H (5-31) U/L ALT 32 H 22 (0-31) U/L Alkaline Phosphatase 95 85 (39-117) U/L Albumin 3.9 3.4 L (3.5-5.0) g/dL Urine 05/13/24 Range/Units 14:46 Urine Color Dark Yellow Urine Appearance Cloudy Urine pH 5.0 (5.0-9.0) Ur Specific [place] 1.015 (1.005-1.025) Urine Protein Trace (Neg-Trace) mg/dL Urine Glucose (UA) Negative (Negative) mg/dL All other labs normal. Assessment and Plan (1) Parastomal hernia: Qualifiers: Obstruction and gangrene presence: without obstruction or gangrene Qualified Code(s): K43.5 - Parastomal hernia without obstruction or gangrene Status: Acute (2) Colovaginal fistula: Status: Acute Plan 83-year-old female patient well known to the surgical service with a prior history of colovaginal fistula requiring a transverse loop colostomy. She reports that her fistula is much improved with no persistent discharge noted. She was admitted to the hospitalist service due to influenza B with the associated weakness and anorexia. CT abdomen and pelvis reveals a parastomal hernia with no evidence of obstruction or strangulation. Her abdomen is soft and nondistended with no tenderness. The parastomal hernia is asymptomatic therefore the safest course is non operative management. I will sign off, please reconsult for any new concerns. Procedures Date of Service Date of Service: 05/14/24
[2024-05-14 10:30] VITALS: BP 116/53; PULSE 66; RESP 20; TEMP 36.6; O2SAT 93
--- NOTE | 2024-05-14 10:43 | PM.DS ---
DS: Providers Provider Date of Service: 05/14/24 Date of admission: 05/13/24 13:26 Date of discharge: 05/14/24 Primary care physician: Nighat Chopra MD Consults: 05/14/24 07:43 Consult to General Surgery Routine Consulting Provider[place] [facility] Reason for consultation: lg ventral hernia Has provider been notified: No Attending physician on discharge: Derrick Lopez Discharging clinician: Mely Alberts DS: Diagnosis Discharge Diagnosis (1) Parastomal hernia: Status: Acute DS: Summary Hospital Course Hospital Course: From H&P on the day of admission This is an 83-year-old female who presents to the emergency department with multiple complaints. For the past 4 days patient reports generalized weakness, decreased oral intake, generalized body aches and cough. Her cough is dry. She denies any recent sick contacts. She does report associated chills. In the emergency department she also mentioned an episode of dark output in her colostomy. Her stools were guaiac positive but her H/H was normal. She denied any overt bleeding. She did report for the past 1 week she has been having dark vaginal discharge and she was diagnosed to have ?bacterial infection? her discharge primarily occurs when she is urinating. She has history of colovaginal fistula requiring transverse loop colostomy in 01/12/2024. Since that time she has not had any vaginal discharge. She denies abdominal pain, dysuria. In the emergency department lab work was significant for JHONNY with creatinine of 1.48, AST/ALT slightly 37/32. She also tested positive for influenza B. No hypoxia, chest x-ray negative for pneumonia. Acute kidney injury Likely due to decreased p.o. intake in the setting of influenza. lisinpril/HCTZ was held overnight and renal function returned to baseline. Influenza B No hypoxia, chest x-ray negative for pneumonia. initially treated with renally dosed Tamiflu, we will discharge home to complete course of Tamiflu. Has been ambulating without dyspnea, hypoxia. Is eager to return home Mild transaminitis Likely due to acute viral illness. No abdominal pain, trending down. Outpatient follow-up Mild hyponatremia Likely due to decreased p.o. intake. Resolved Dark vaginal discharge h/o colovaginal fistula. recently dx with bacterial infection and was prescribed fluconazole. due to history of dark vaginal discharge/discharge with urination, concern for possible recurrent/new fistula. CT scan with no evidence of fistula, ventral/parastomal hernia, chronic. Seen by surgery no further workup/intervention required possible UTI given empiric abx in ed. urine culture negative, no urinary symptoms. No indication for ongoing antibiotics. guiac positive stool. stool output normal in color, no blood or black stools. H/H has remained normal. outpatient follow up Time Attestation Discharge Coordination Time (in mins): 32 Quality: Safe Use of Opioids Does Pt have an Active Cancer Diagnosis on the Problem List?: No Quality: Stroke Does the patient have a stroke diagnosis?: No Physical Exam Vital Signs: Vital Signs: Last Vital Signs Temp 97.8 F 05/14/24 10:30 Pulse 66 05/14/24 10:30 Resp 20 05/14/24 10:30 BP 116/53 L 05/14/24 10:30 Pulse Ox 93 05/14/24 10:30 O2 Del Method Room Air 05/14/24 10:30 BMI result Body Mass Index 27.2 Const: General: cooperative, comfortable, no acute distress, alert and awake Nutritional Appearance: average body habitus Orientation/consciousness: patient oriented x3 Resp: Effort & Inspection: no respiratory distress and no use of accessory muscles Cardio: Rate: regular rate GI: Other: ostomy present Inspection: No distended Palpation (GI): Soft to palpation and nontender Neuro: General: patient oriented x3, moves all extremities and CN's II-XI intact bilaterally Extrem: General: Yes no pedal edema DS: Data Data Completed and Pending Completed studies during hospitalization [Text1]: Procedures Bypass Transverse Colon to Cutaneous, Open Approach (12/21/23) Inspection of Lower Intestinal Tract, Via Natural or Artificial Opening Endoscopic (12/21/23) Introduction of Anesthetic Agent into Peripheral Nerves and Plexi, Percutaneous Approach (12/21/23) Labs on day of discharge: Laboratory Results - last 24 hr 05/13/24 05/13/24 05/14/24 12:28 14:46 06:02 WBC 5.3 RBC 4.57 Hgb 13.0 Hct 37.9 MCV 82.9 MCH 28.4 MCHC 34.3 RDW 15.4 Plt Count 215 MPV 10.6 Absolute Nucleated RBC 0.000 Nucleated RBC % (auto) 0.0 Sodium 136 Potassium 4.0 Chloride 107 Carbon Dioxide 21 L Anion Gap 12 BUN 25 H Creatinine 0.81 Estim Creat Clear Calc 48.2 Estimated GFR > 60 Random Glucose 106 Calcium 8.6 Total Bilirubin 0.2 Direct Bilirubin < 0.2 AST 36 H ALT 22 Alkaline Phosphatase 85 Total Protein 7.7 Albumin 3.4 L Urine Color Dark Yellow Urine Appearance Cloudy Urine pH 5.0 Ur Specific [place] 1.015 Urine Protein Trace Urine Glucose (UA) Negative Urine Ketones Trace Urine Blood Negative Urine Nitrite Negative Ur Leukocyte Esterase Moderate (2+) H Urine RBC 0-2 Urine WBC 11-20 H Ur Squamous Epith Cells 3-5 Calcium Oxalate Crystal Present Urine Bacteria None Seen Hyaline Casts >20 Stool Occult Blood POSITIVE Discharge Plan Discharge Anticipated Discharge Date/Time: 05/14/24 10:49 Patient Disposition: Home, Self-Care Discharge Diagnosis: acute influenza B JHONNY Referrals: Nighat Chopra MD [Primary Care Provider] - 1 Week Discharge Medications: New oseltamivir [Tamiflu] 75 mg capsule 75 mg PO Q12H 4 Days Qty: 8 0RF Continued atorvastatin 20 mg tablet 20 mg PO BEDTIME atenolol 25 mg tablet 25 mg PO BEDTIME lisinopril-hydrochlorothiazide 10-12.5 mg tablet 1 tab PO BEDTIME Discharge Orders: Discharge Order (Routine); Ordered 05/14/24 Ordered By: Mely Alberts Activity on Discharge: As tolerated Stand Alone Forms: Patient Portal Discharge page Print Language: Sammarinese Care Plan Goals: See below Health Concerns: Influenza B JHONNY-resolved UTI ruled out Plan of Treatment: Complete course of Tamiflu for influenza Stay hydrated Call to schedule follow-up appointment with PCP as needed Call PCP or return to the emergency department with new or worsening symptoms Assessment: See discharge summary
--- NOTE | 2024-05-14 11:09 | PC.NURSE ---
Report received from CECY Jacobs. Taken over care at this time.
--- NOTE | 2024-05-14 11:26 | MHC.CM.PN ---
PT [facility] PRIOR TO BEING SEEN BY CM PT [facility]
[2024-05-14 11:45] VITALS: BP 125/77; PULSE 85; RESP 20; TEMP 36.6; O2SAT 95
== END 2024-05-14 11:43 | disposition home or self-care (01) | DRG 194 ==
LOC: HO.ED 12:39 → HO.EDOVER 14:30
PROVIDERS: Nurse Practitioner Family; Admitting Provider Physician Assistant Medical; Emergency Provider Emergency Medicine; PCP Internal Medicine; Visit Provider Physician Assistant Medical
DX: J10.1 Influenza due to other identified influenza virus with other respiratory manifestations (principal); E87.1 Hypo-osmolality and hyponatremia; N17.9 Acute kidney failure, unspecified; N39.0 Urinary tract infection, site not specified; K43.5 Parastomal hernia without obstruction or gangrene; E86.0 Dehydration; I10 Essential (primary) hypertension; E78.5 Hyperlipidemia, unspecified; Z93.3 Colostomy status; R19.5 Other fecal abnormalities; Z79.899 Other long term (current) drug therapy
CPT/HCPCS: 0241U; 36415; 71046; 74176; 80048; 80053; 80076; 81001; 82272; 83735; 85025; 85027; 87086; 99285; J0696; J7120

== ENCOUNTER → 2024-05-13 09:20 | Outpatient (BNV) | payer MEDICARE, SELFPAY | PROVIDERS: PCP Internal Medicine; Visit Provider Radiology Vascular & Interventional Radiology | DX: R05.9 Cough, unspecified (principal); E86.0 Dehydration; N89.9 Noninflammatory disorder of vagina, unspecified; N17.9 Acute kidney failure, unspecified; J09.X2 Influenza due to identified novel influenza A virus with other respiratory manifestations | CPT/HCPCS: 71046; 74176 ==

== ENCOUNTER → 2024-05-13 13:26 | Outpatient (BNV) | payer MEDICARE, SELFPAY | PROVIDERS: Admitting Provider Physician Assistant Medical; Emergency Provider Emergency Medicine; PCP Internal Medicine; Visit Provider Physician Assistant Medical | DX: N17.9 Acute kidney failure, unspecified (principal); J11.1 Influenza due to unidentified influenza virus with other respiratory manifestations; K43.5 Parastomal hernia without obstruction or gangrene | CPT/HCPCS: 99223; 99239 ==

== ENCOUNTER → 2024-05-13 13:26 | Outpatient (BNV) | payer MEDICARE, SELFPAY | PROVIDERS: Admitting Provider Physician Assistant Medical; Emergency Provider Emergency Medicine; PCP Internal Medicine; Visit Provider Surgery | DX: K43.5 Parastomal hernia without obstruction or gangrene (principal); N82.4 Other female intestinal-genital tract fistulae | CPT/HCPCS: 99222 ==

== ENCOUNTER 2024-06-26 15:18 | Outpatient (REF) | payer MEDICARE, SELFPAY ==
--- NOTE | ~2024-06-26 | CT_ITS ---
CLINICAL HISTORY: R91.8 - Other nonspecific abnormal finding of lung field CT chest without contrast Comparison: CT/SR - CT CHEST WO IV CON - 03/17/24 14:02 EST Findings: The heart size is normal. No mediastinal or hilar lymphadenopathy. Moderate atherosclerotic calcification of the thoracic aorta without aneurysmal dilation. The visualized thyroid and mediastinum are unremarkable. Redemonstration of bilateral lung nodules, unchanged in size and appearance in the interval. The largest one within the left lower lobe measuring 1.2 cm, unchanged ( image 88 and series 4). Multiple 3-4 mm nodules are also noted within the right anterior middle lobe as well as a partially calcified nodule within the right lower lobe unchanged. Cholelithiasis. Otherwise limited views of the abdominal viscera are grossly unremarkable. The bones are intact. IMPRESSION: 1. Multiple stable lung nodules bilaterally as detailed in the findings. The largest nodule within the left lower lobe measuring 1.2 cm, unchanged. Yearly follow-up is recommended. 2. Other chronic findings as detailed above. This document has been electronically signed by: Sandee Albert MD on 06/27/2024 23:17:32
--- OUTSIDE RECORDS SUMMARY | 2024-06-26 16:55 | XMS_ITS | Data Portability ---
Author Organization [place] - [facility], HOSPITAL - Address [address] [place] [address] Care Team Providers Care Predictive Maintenance Specialist Name Role Phone JONATHAN BOWMAN Primary Care Provider Assessment No assessment recorded. [...] Instructions STEPHANIE Not available 10/11/2016 05:01:23 03/16/2017 [id number] Peripheral Arterial Disease (PAD): Care Instructions Not available 03/20/2017 01:57:32 09/27/2017 [id number] Peripheral Arterial Disease (PAD): Care Instructions Not available 09/29/2017 17:59:47 10/22/2017 [id number] Peripheral Arterial Disease (PAD): Care Instructions Not available 10/27/2017 13:44:32 05/06/2018 [id number] Peripheral Arterial Disease (PAD): Care Instructions Not available 05/10/2018 19:09:40 Reason for Referral None Reported. Results Created Date Observation Date Name Description Value Unit Range Abnormal Flag Note LastModifiedBy Organization Detail LastModifiedTime 09/29/19 18 elect rocar diogr am No observ ation record ed. [facility] [place] [address], [place], [address], 09/28/2017 15:37:29 10/23/19 18 [place], carot id arter y No observ ation record ed. [facility] [address], [place], [address], 10/22/2017 19:15:59 Result Notes None recorded. Problems No Known Problems Procedures Surgical History Date Name Laterality Status Provider Name and Address Organization Details Recorded Time delivery completed [facility] 02/20/2016 16:57:55 Hysterectomy/bladd er repair completed [facility] 02/20/2016 16:58:01 Genitourinary Surgery completed [facility] 02/20/2016 16:58:[address] [facility] 02/20/2016 16:58:21 Orthopaedic Surgery completed [facility] 02/20/2016 16:58:32 Removal of tonsils completed Emma [facility]al [facility] 02/20/2016 16:58:39 Appendectomy completed [facility] 02/20/2016 16:58:44 Imaging Results Imaging Date Name Status LastModified by Organization Details LastModified Time 09/28/2017 electrocardiogram completed [facility] [address], [place], [address], 09/28/2017 15:37:29 10/22/2017 [place], carotid artery completed [facility] [address], [place], [address], 10/22/2017 19:15:59 Procedure Notes None recorded. Medical [...] Not Available No t Available Fluzone High-Dose [id number] (PF) 180 mcg/0.5 mL intramuscular syringe ADM 0.5ML IM UTD 02/19 completed Not Available Not Available Not Available Fluzone High-Dose [id number] (PF) 180 mcg/0.5 mL intramuscular syringe ADM 0.5ML IM UTD 03/16 completed Not Available Not Available Not Available Fluzone High-Dose [id number] (PF) 180 mcg/0.5 mL intramuscular syringe ADM 0.5ML IM UTD 05/06 completed Not Available Not Available Not Available Vitals Date Recorded Body height Provider Name an d Address Organization Details Last Updated DateTime 09/08/2016 152.4 cm [facility] [place] 09/08/2016 18:48:16 Date Recorded Body mass index (BMI) Body weight Respiratory rate Heart rate Oxygen saturation Oxygen saturation in Arterial blood by Pulse oximetry Systolic blood pressure Diastolic blood pressure Provider Name and Address Organization Details Last Updated DateTime 7 31.4 kg/m2 89316.3 7 g 16 /min 72 /min 98 % 98 % 122 mm[Hg] 76 mm[Hg] Emam Pradhan [facility] [place] 7 19:05:50 Date Recorded Body height Respiratory rate Body mass index (BMI) Body weight Heart rate Oxygen saturation Oxygen saturation in Arterial blood by Pulse oximetry Systolic blood pressure Diastolic blood pressure Provider Name and Address Organization Details Last Updated DateTime 8 152.4 cm 16 /min 30.9 kg/m2 74386.5 9 g 75 /min 98 % 98 % 110 mm[Hg] 78 mm[Hg] Emma Pradhan [facility] [place] 8 15:33:46 Date Recorded Body height Heart rate Oxygen saturation Oxygen saturation in Arterial blood by Pulse oximetry Respiratory rate Body mass index (BMI) Body weight Systolic blood pressure Diastolic blood pressure Provider Name and Address Organization Details Last Updated DateTime 8 152.4 cm 66 /min 97 % 97 % 16 /min 31.1 kg/m2 05733.6 2 g 130 mm[Hg] 72 mm[Hg] diamante dickson [facility] [place] 8 19:36:01 Date Recorded Body height Respiratory rate Body mass index (BMI) Body weight Heart rate Oxygen saturation Oxygen saturation in Arterial blood by Pulse oximetry Systolic blood pressure Diastolic blood pressure Provider Name and Address Organization Details Last Updated DateTime 8 152.4 cm 16 /min 31.1 kg/m2 85304.6 2 g 73 /min 96 % 96 % 148 mm[Hg] 78 mm[Hg] Myrna chou [facility] [place] 8 16:21:51 Date Recorded Body height Respiratory rate Body mass index (BMI) Body weight Heart rate Oxygen saturation Oxygen saturation in Arterial blood by Pulse oximetry Systolic blood pressure Diastolic blood pressure Provider Name and Address Organization Details Last Updated DateTime 9 152.4 cm 16 /min 31.5 kg/m2 58469.8 1 g 68 /min 97 % 97 % 130 mm[Hg] 72 mm[Hg] Lyn Sauceda [facility] [place] 9 16:30:59 Social History Question Answer Notes LastModified by Organizat ion Details LastModified Time Tobacco Smoking Status Current Every Day Smoker Emma garcia [facility] [place] 02/20/2016 16:57:39 Do You Have An Advance Directive? No [email or web address] Information not available 02/20/2016 What Is Your Level Of Alcohol Consumption? None Information not available 02/20/2016 Diabetes Yes [email or web address] Information no t available 02/20/2016 What Type Of Diet Are You Following? REGULAR [email or web address] Information not available 02/20/2016 Which Illicit Or Recreational Drugs Have You Used? Deborah. russ Information not available 03/18/2016 What Is Your Occupation? Retired [email or web address] Information not available 02/20/2016 Family History Of Heart Disease? Yes [email or web address] Information not available 02/20/2016 High Blood Pressure Yes [email or web address] Information not available 02/20/2016 High Cholesterol Yes [email or web address] Informat ion not available 02/20/2016 Marital Status [email or web address] Informatio n not available 02/20/2016 What Was The Date Of Your Most Recent Tobacco Screening? 05/06/2018 Information not available 09/14/2018 Obese No Information no t available 02/20/2016 Overweight Yes [email or web address] Information no t available 02/20/2016 How Much Tobacco Do You Smoke? 0.25 PPD [email or web address] Information not available 02/20/2016 General Stress Level Low [email or web address] Information not available 02/20/2016 Sex: Unknown Functional Status Question Answer Note LastModified by Organizat ion Details LastModified Time What is your exercise level? Occasional [email or web address] Information not available 02/20/2016 Mental Status None recorded. Family History Relationship Description Onset Age of this Age Resolved Age Notes LastModified by Organization Details LastModified Time Father Myocardial infarction 50 Not available 01/23 17:06:27 Medical History Condition Response Coronary Artery Disease N Neurologic Disorder (Parkinson's, tremor , [place]) N COPD N Depression/Anxiety N Peripheral Arterial Disease N Pacemaker N Genitourinary Disease N Gastrointestinal Disease N Deep Vein Thrombosis N Cancer N Aortic Aneurysm N Liver Disease N Valvular Abnormalities N Arrhythmia N Kidney Disease N CVA/TIA (Stroke) N Anemia N Heart Attack ([place]) N Diabetes Y Cardiomyopathy N Antiplatelet/Anticoagulant Therapy N Congestive Heart Failure (CHF) N Hyperlipidemia Y Asthma N Hypertension Y Hematologic Disease N Gynecological HistoryNo gynecological history recorded. Obstetrics History GPAL:G 0 P 0 0 0 0 Past Encounters Encounter ID Performer Location Encounter Start Date Encounter Closed Date Diagnosis/Indication Diagnosis SNOMED-CT Code Diagnosis ICD10 Code Diagnosis Note [id number] Warren England MD OFFICE - [place] [address] [address] 02/20/2016 17:00:01 02/23/2016 14:02:13 Peripheral vascular disease 433778607 I73.9 xray showed calcificat ion of aorta. No symptoms. Do MARTINEZ for further evaluation and do US for evaluation of aneurysm as well. Hyperlipidemia 61392746 E78.5 Continue Statin Benign hypertension 1072 5009 I10 BP is controlled , reviewed the ekg, showed SR. Advised about smoking cessation [id number] Warren England MD OFFICE - [place] [address] [place] [address] 03/18/2016 15:08:59 03/20/2016 15:52:57 Peripheral vascular disease 790549610 I73.9 Reviewed the MARTINEZ, normal. Possible inflow disease. No symptoms at all, no need for further testing at this point. Encouraged more walking. Symptoms improved after sciatica shot. Reviewed the MARTINEZ, appears normal. Hyperlipidemia 62116417 E78.5 Continue Statin Benign hypertension 1072 5009 I10 BP is controlled on current medical therpay. No changes in meds. [id number] Warren England MD [facility] [address] [place] [id number] 09/08/2016 18:38:53 09/09/2016 19:31:46 Peripheral vascular disease 018327158 I73.9 stable. Benign hypertension 1072 5009 I10 BP is controlled on current medical therpay. No changes in meds. Under alot of stress lately. Doing good cardiac khanna. [id number] Warren England MD [facility] [address] [place] [id number] 03/16/2017 15:25:09 03/20/2017 02:01:26 Peripheral vascular disease 499606787 I73.9 Stable. Mixed hyperlipidemia 267 917569 E78.2 Continue medical therapy. Benign hypertension 1072 5009 I10 BP is controlled on current medical therapy. No changes in meds. Doing good cardiac khanna. [id number] Warren England MD [facility] [address] [place] [id number] 09/27/2017 18:53:00 09/29/2017 17:59:03 Peripheral vascular disease 574901557 I73.9 Stable. Reviewed the keg, showed SR. Mixed hyperlipidemia 267 612600 E78.2 Continue medical therapy. Benign hypertension 1072 5009 I10 Z72.0 BP is controlled on current medical therapy. Bruit 19601995 R09.89 do carotid US, xray showed calcificat ion in carotid artery. [id number] Warren England MD [facility] [address] [place] [id number] 10/22/2017 16:08:13 10/27/2017 13:43:54 Benign hypertension 59216317 I10 BP is controlled at home, no change in meds for now. Reviewed US, normal. Mixed hyperlipidemia 267 155730 E78.2 Continue medical therapy. Peripheral vascular disease 291468755 I73.9 Stable. [id number] Warren England MD [facility] [place] [address] [place] [address] [address] [place] [address] 05/06/2018 15:43:43 05/10/2018 19:09:20 Benign hypertension 56789636 I10 Z72.0 BP is controlled at home, no change in meds for now. Mixed hyperlipidemia 267 650790 E78.2 Continue medical therapy. Peripheral vascular disease 659250820 I73.9 Stable. no change in meds Health Concerns Section Related Observation LastModified by Organization Detai ls LastModified Time None Recorded Concern Status LastModified by Organization Details LastModified Time None Recorded Advance Directives Directive N: Payers Encounter Date Sequence Insurance Name Policy Number Policy Hall Covered Member ID Hall Member ID Guarantor Name 09/08/2016 1 [employer] (MEDICARE REPLACEMENT/AD VANTAGE - PPO) July Arel [id number] July Arel 03/16/2017 1 [employer] - GOLD PLUS (MEDICARE REPLACEMENT HMO) July Arel [id number] July Arel 09/27/2017 1 [employer] - GOLD PLUS (MEDICARE REPLACEMENT HMO) July D Arel [id number] July D Arel 10/22/2017 1 [employer] - GOLD PLUS (MEDICARE REPLACEMENT HMO) July Arel [id number] July D Arel 05/06/2018 1 [employer] - GOLD PLUS (MEDICARE REPLACEMENT HMO) July Arel [id number] July D Arel Notes Date Note Type Note Provider Name and Address Organization Details Recorded Time 09/08/2016 text/html Mrs. Campbell is a [age] year old female with HTN, hyperlipidemia, and DMII. She comes in today for a follow up of HTN.Patient has no complaints. Denies CP, SOB, dizziness, and swelling. Warren England MD [address] [facility] [address], [place], [address], [facility] 09/09/2016 19:32:45 03/16/2017 text/html Mrs. Campbell is a [age] year old female with HTN, hyperlipidemia, and DMII. She comes in today for a follow up of HTN. Patient has no complaints. Denies CP, SOB, dizziness, and swelling. Warren England MD [address] [facility],[address], [place], [address], [facility] [place] 03/20/2017 02:01:29 09/27/2017 text/html Mrs. Campbell is a [age] year old female with HTN, hyperlipidemia, and DMII. She comes in today for a follow up of HTN. Patient denies CP, dizziness, SOB, and abnormal swelling. She has no concerns today but states Dr oBwman told her to get her carotid arteries checked. Warren England MD [address], [address], [facility] [place] 09/29/2017 17:59:50 10/22/2017 text/html Mrs. Campbell is a [age] year old female with HTN, hyperlipidemia, and DMII. She comes in today for a follow up of HTN. Patient denies CP, SOB, dizziness, or swelling in BLE. Patient denies any other symptoms. Warren England MD [address], [place], [address], [facility] [place] 10/27/2017 13:44:35 05/06/2018 text/html Mrs. Campbell is a [age] year old female with HTN, hyperlipidemia, and DMII. She comes in today for a follow up of HTN. She denies CP, SOB, dizziness, and swelling in BLE. She has no other complaints today. Warren England MD [address] [facility],[address], [place], [address], [facility] [place] 05/10/2018 19:09:42 OBGyn Episode No OBEpisode recorded.
--- OUTSIDE RECORDS SUMMARY | 2024-06-26 16:55 | XMS_ITS | Continuity of Care Document ---
Author Organization [facility] Address [address] [address] Phone Care Team Providers Care Substation Supervisor Name Role Phone Farrukh Saunders MD Unavailable [...] on Encounter Est Patient E/M Moderate MDM [employer] [facility], [address] [place], [place], [id number] , [place] tel:[phone] [facility] Follow Up of Vitreomacular adhesion (chief complaint) Vitreomacular adhesion, left eyePuckering of macula, bilateral Sep-1 2 Chip Chadwick. [address], [place], [id number], [place]. tel:[phone] Referring Provider: Juan Joe, [address] [place] [address], [address] . tel:[phone] [employer] [facility], [address] [place], [id number] , [place] [phone] [facility] routine exam (chief complaint) Vitreomacular adhesion, left eye Mar-3 2 Rosita Martinez. [address] [place], [id number], [place]. tel:[phone] Referring Provider: Juan Joe, [address] [place], [address] . tel:[phone] [employer] [facility], [address] [place], [place], [id number] , [place] tel:[phone] [facility] VMT (chief complaint) Vitreomacular adhesion, left eye Sep-2 1 Rosita Martinez. [address] [place], [id number], [place]. tel:[phone] Referring Provider: Juan Joe, [address] [place], [address] . tel:[phone] [employer] [facility], [address] [place], [place], [id number] , tel:[phone] [facility] Presence of intraocular lens 1 Senica Sly. [address] [facility], [place], [place], [id number], . tel:[phone] Referring Provider: Paco Willson, [address] [place], [address] . tel:[phone] [employer] [facility], [address] [place], [place], [id number] , tel:[phone] [facility] Presence of intraocular lens 1 Senica Sly. [address] [facility] [address] [facility], [place], [place], [id number], [place]. tel:[phone] Referring Provider: Paco Willson, [address] [place], [address] . tel:[phone] [employer] [facility], [address] [place], [place], [id number] , [place] tel:[phone] [facility] Encounter for surgical aftercare following surgery on a sense organ 1 Senica Sly. [address] [facility] [address] [facility], [place], [place], [id number], [place]. tel:[phone] Referring Provider: Paco Willson, [address] [place], [address] . tel:[phone] [employer], [address] [place], [place], [id number] , [place] tel:[phone] [facility] Encounter for surgical aftercare following surgery on a sense organ 1 Senica Sly. [address] [facility] [address] [facility], [place], [place], [id number], [place]. tel:[phone] Referring Provider: Paco Willson, [address] [place], [address] . tel:[phone] New Patient E/M Low MDM [employer] [facility], [address] [place], [place], [place], [id number] , [place] tel:[phone] [facility] Encounter for other preprocedural examinationCombi joi forms of age-related cataract, bilateral June-0 1 Tobiasrolo [place]. [address] [place], [place], [id number], [place]. tel:[phone] Referring Provider: Paco Willson, [address] [place], [address] . tel:[phone] [employer] [facility], [address] [place], [place], [id number] , [place] tel:[phone] [facility] blurry vision (chief complaint)Glar e (chief complaint)Floa ters (chief complaint) Vitreomacular adhesion, left eyeCombined forms of age-related cataract, bilateralCombine d forms of age-related cataract, left eyeRegular astigmatism, bilateral Apr-0 1 Rj Antonio. [address] [place], [place], [place], [id number], [place]. tel:[phone] Referring Provider: Juan Joe, [address] [place], [address] . tel:[phone] [employer] [facility], [address] [place], [place], [id number] , [place] tel: [phone] [facility] Vitreomacular adhesion, left eye Mar-2 1 Rosita Martinez. [address] [place], [place], [id number], [place]. tel:[phone] Referring Provider: Sly Monge, [address], [place], [address] . tel:[phone] [employer] [facility], [address] [place] [address], [id number] , [phone] [facility] Combined forms of age-related cataract, bilateralVitreom acular adhesion, left eyeCystoid macular degeneration, left eyeType 2 diabetes mellitus without complications 1 [facility]. [address] [facility], [place], [place], [address], . tel:[phone] Referring Provider: Sly Monge, [address] [facility], [place], [address] . tel:[phone] [employer] [facility], [address] [place] [address], [id number] , [phone] [facility] Combined forms of age-related cataract, bilateral Dec- 0-201 9 [facility]. [address] [facility], [place], [place], [address], . tel:[phone] Referring Provider: Sly Monge, [address] [facility], [place], [address] . tel:[phone] Family History Family Member Type Diagnosis Age At Onset Daughter Problem (finding) glaucoma Mother Problem (finding) glaucoma Payers Payer name Insurance type Covered alliance party ID Authoriza tirenetta(s) [employer] Gold Plus PPO HMO Advantage CI [id number] Social History Type Description Quantity Date [...] Future Order: Radiology Order OC T Retina ([id number]), Ordered on: Ordered Future Order: Radiology Order OC T Ret[facility] ([id number]), Ordered on: Ordered History Of Present Illness [...]
== END 2024-06-26 15:19 | disposition home or self-care (01) ==
LOC: HO.CT 15:18
PROVIDERS: PCP Internal Medicine; Visit Provider Hospitalist
DX: R91.8 Other nonspecific abnormal finding of lung field (principal)
CPT/HCPCS: 71250

== ENCOUNTER → 2024-06-26 15:20 | Outpatient (BNV) | payer MEDICARE, SELFPAY | PROVIDERS: PCP Internal Medicine; Visit Provider Student in an Organized Health Care Education/Training Program | DX: R91.8 Other nonspecific abnormal finding of lung field (principal) | CPT/HCPCS: 71250 ==

== ENCOUNTER 2024-07-26 09:56 | Outpatient (AMB) | payer MEDICARE, SELFPAY ==
[2024-07-26 09:58] VITALS: BP 126/56; PULSE 63; O2SAT 99; BMI 28.0
--- NOTE | 2024-07-26 09:58 | A.OFFVIS_ITS ---
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 Plan is for flexible sigmoidoscopy tomorrow to visualize the possible fistula in the sigmoid colon connecting to the vaginal cuff. This was seen on a recent CT after patient reported to the ED with passing gas and stool vaginally and a UTI. She reports that she does have an inhaler for an unknown reason, she is a smoker, and often wheezes in the morning. The patient had a CT scan of the abdomen which I personally reviewed. There was about a cm nodular density in the left lower lobe and a small subcentimeter nodule in the right lower lobe. Again this is limited just to the lower lung cuts of the abdominal CT scan. And she does need a formal CT scan of the chest. 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 I did recommend that the patient gets treated for the active issues and when she is discharged she undergoes a CT scan of the chest deformity follow-up with their findings. In the meantime she does smoke. 01/18/2024 the patient is here for a pulmonary hospital follow-up visit. Apparently the patient was admitted and underwent a CT scan of the abdomen with a found that nodular density. She ultimately underwent a CT scan of the chest which I personally reviewed. I did review with her. This CT scan was done in 12/12/2023. She does have a 12 mm pulmonary nodule in the left lower lobe which appears to be smooth border. In addition to that she has more irregular subsolid irregular nodular density measuring around 10 mm in size. The patient is a smoker and therefore she is a high-risk for cancer. She also has significant atherosclerosis. No significant emphysema although she does have evidence of chronic bronchitis. The patient does have a rescue inhaler that she does not have to use it. She did complete a course of Augmentin because of another infection. Therefore, be reasonable to place her on Wixela. She can use it once a day with the hope that this right upper lobe area is more inflammatory. She can use Wixela daily. And then will plan to repeat the CT scan 3 months from her last 1. Then will follow-up. If this area is persistent in changing then will talk about further diagnostic interventions. Otherwise will follow-up then. Depending on the findings in the CT scan will decide if she needs a CT scan. Right now she is not ready to quit smoking. But she is consider cutting down some. 03/27/2024 the patient is here for a pulmonary follow-up visit. Overall she is doing okay. The patient has been using the Wixela although she does not feel like he has been very helpful. She does not use it regularly. I did recommend she least use it daily. She should rinse her mouth after using it. She understands that she is not going to get an acute response to the medications since his longer acting. But it will help. She continues to smoke cigarettes. She is not ready to quit. In addition to that she had a repeat CT scan which we personally reviewed and compared to her CT scan from 12/12/2023. Looks like the irregular nodular density appears to be a little more spiculated in the right upper lobe. Also a little denser when compared to 3 months prior. Her other nodules are well-circumscribed. We did talk about different options including PET scan versus biopsy versus repeating the CT scan in 3 months. At this point the patient just rather follow it another [address] scan to see how progressing. At that point if it progresses further will talk about further diagnostic interventions. But for now will follow. She will continue with current respiratory therapy. She is also going to work on cutting down her smoking. 07/26/2024 the patient is here for pulmonary follow-up visit. She has multiple complaints including abdominal discomfort because of a ventral hernia and also some now back pain with some sciatica. This is most of her complaints. Does not really have any respiratory complaints. Doing okay from a breathing standpoint. The patient did have a recent CT scan of the chest which which we personally reviewed demonstrating the persistent irregular nodular density in the l right upper lobe which is concerning nature. She had initially visualized back in April and now 3 months later still there and is concerning in appearance. Based on her comorbidities will go ahead and request a PET scan to see how metabolically active this is in order to consider the best place to biopsy. She will continue with current therapy. She is going to work with her surgeon regarding her ventral hernia and will follow-up with her primary care doctor regarding her back pain. Once I get the PET scan will call them. The patient follow-up in 6 months with mean to reassess. PFSH Medical History Parastomal hernia Pulmonary nodules Chronic back pain Smoker Hypertension Surgical History Hx of surgical procedure (~12/24/23) H/O removal of cyst History of hysterectomy H/O hernia repair Previous section Social History (Updated 07/26/24 @ 10:02 by Rehana Mckeon CMA) Household Members: Family Housing: House Are you a primary hospice spiritual care coordinator to a significant other at home: No Do you presently have visiting nurse or other home services: No Comment: rings appropriately Patient Tobacco Use Status: Never used Tobacco Tobacco use type: Cigarette Cigarettes Per Day: 3 Years Smoked: 50 Second Hand Smoke Exposure: No Advance Directives Date on File: 12/22/23 service: No Review of Systems Const Denies chills and Denies fever(s) ENT Reports nasal congestion Card Denies chest pain and Reports dyspnea on exertion Resp Reports cough, Reports dyspnea on exertion and Denies wheezing GI Reports as per HPI and Reports abdominal pain Musc Reports back pain, Reports myalgias and Reports radiating pain into limb Skin/Breast Denies rash Fei/Lymph Reports no additional complaints Aller/Immun Denies wheezing Physical Exam Vital Signs: Last Vital Signs Pulse 63 07/26/24 09:58 BP 126/56 L 07/26/24 09:58 Pulse Ox 99 07/26/24 09:58 Oxygen Delivery Method Room Air 07/26/24 09:58 BMI result Body Mass Index 28.0 Last Vital Signs Temp 98.3 F 12/23/23 08:10 Pulse 63 12/23/23 08:10 Resp 16 12/23/23 08:10 BP 125/46 L 12/23/23 08:10 Pulse Ox 94 12/23/23 08:10 O2 Del Method Room Air 12/23/23 08:10 BMI result Body Mass Index 29.6 Const General: comfortable HEENT Head: Yes normocephalic Neck Neck: Yes supple Chest Chest palpation & inspection: normal inspection of the chest Resp Effort & Inspection: normal respiratory effort Auscultation: diminished lung sounds Cardio Heart sounds: S1 normal heart sound present and S2 normal heart sound present GI Palpation (GI): Soft to palpation Skin General skin exam: no rashes or lesions noted Extrem General: No clubbing and No cyanosis Assessment & Plan Assessment & Plan (1) Pulmonary nodules: Code(s): R91.8 - Other nonspecific abnormal finding of lung field Category: Medical (2) Smoker: Code(s): F17.200 - Nicotine dependence, unspecified, uncomplicated Category: Social Hx (3) Pulmonary nodule 1 cm or greater in diameter: Code(s): R91.1 - Solitary pulmonary nodule Category: Medical Plan continue Wixela daily PET, if Abnormal we will discuss options Tobacco cessation: pt is not ready to quit. usually cuts down in the winter F/U in 4-6 months Orders: Orders PET CT fusion skull to thigh Today R91.1 - Solitary pulmonary nodule Coding Level of Care Code Est Pt Level 4 (07376) Complex EM visit Add On G2211 Diagnoses Pulmonary nodules R91.8 Smoker F17.200 Pulmonary nodule 1 cm or greater in diameter R91.1 Time Spent (min) 17
--- OUTSIDE RECORDS SUMMARY | 2024-07-26 10:30 | XMS_ITS | Patient Health Record ---
Author Organization [facility] Address [address] [place] [address] Care Team Providers Care Collections Representative Name Role Phone JONATHAN BOWMAN Primary Care Provider Valentin Dick Unavailable [phone] Reason For Referral No Information Medications Medication SIG (Take, Route, Frequency, Duration) Notes Start Date End Date Status Aspir-81 81 MG 1 tablet Orally Once a day for 30 day(s) Active Fish Oil 1000 MG 1 capsule Orally Onc e a day for 30 day(s) Active D3 Adult 1000 UNIT 1 tablet Orally Once a day for 30 day(s) Active S53-Mhjdqn 1 MG as directed Orally Active MagOx 400 400 (241.3 Mg) MG 1 tablet wit h food Orally Once a day for 30 day(s) Active metFORMIN HCl 500 MG 1 tablet with a yue l Orally Once a day for 30 day(s) Active Lisinopril-hydroCHLOROthiaz nell 10-12.5 MG 1 tablet Orally Once a day for 30 day(s) Active Atenolol 25 MG 1 tablet Orally Once a day for 30 day(s) Active Atorvastatin Calcium 20 MG 1 tablet Oral ly Once a day for 30 day(s) Active Social History Tobacco Use: Social History Observation Description Date Details (start date - stop date) Current Smoker NA - NA Alcohol screen Question Answer Notes Did you have a drink containing alcohol in the p ast year? No Points 0 Interpretation Negative Tobacco Use: Question Answer Notes Are you a: Current Smoker How often do you smoke cigarettes? every day How soon after you wake up do you smoke your fir st cigarette? 6-30 min How many cigarettes a day do you smoke? 11-20 Are you interested in quitting? Not ready to rosalia t Problems Problem Type SNOMED Code ICD Code Onset Dates Problem Status W/U Status Risk Notes Problem 518856030 Low back pain (M54.5) Active confirmed Problem 77013878 Other chronic pain (G89.29) Active confirmed Problem 671117012 Facet arthropathy of spine (M47.819) Active confirmed Plan Of Treatment Pending Test Test Name Order Date MRI LSP W/O CONTRAST 10/05/2017 Insurance Providers Payer Name Payer Address Payer Phone Subscriber Number Group Number Insured Name Patient Relationship to Insured Coverage Start Date Coverage End Date [employer] [facility] [facility] [address] [address] [place] [address] [id number] July Self - patient is the insured Medical (General) History Medical History History ICD Code HBP Surgical History Surgery Date(Month/Year) 3 C Sections 1960,62,63 Hysterectomy 2009
== END 2024-07-26 10:24 | disposition home or self-care (01) ==
LOC: HO.HPS 09:56
PROVIDERS: PCP Internal Medicine; Visit Provider Hospitalist
DX: R91.8 Other nonspecific abnormal finding of lung field (principal); F17.200 Nicotine dependence, unspecified, uncomplicated; R91.1 Solitary pulmonary nodule
CPT/HCPCS: 99214; G2211

== ENCOUNTER → 2024-07-26 09:56 | Outpatient (BNVA) | payer MEDICARE, SELFPAY | PROVIDERS: PCP Internal Medicine; Visit Provider Hospitalist | DX: J44.9 Chronic obstructive pulmonary disease, unspecified (principal); R91.8 Other nonspecific abnormal finding of lung field; F17.210 Nicotine dependence, cigarettes, uncomplicated | CPT/HCPCS: 99212 ==

== ENCOUNTER 2024-08-01 09:30 | Outpatient (REF) | payer MEDICARE, SELFPAY ==
--- NOTE | ~2024-08-01 | PE_ITS ---
EXAMINATION: FLUORINE-18 FDG PET/CT SCAN CLINICAL INFORMATION: Multiple stable lung nodules bilaterally. Largest nodule left lower lobe measuring 1.2 cm. TECHNIQUE: 55 minutes following the intravenous administration of 16.3 mCi of fluorine 18 FDG, images from the skull base to upper thigh were obtained using a combined PET/CT scanner with CT scan based attenuation correction. No intravenous contrast was administered. Transverse, coronal, sagittal, and volume reconstruction projections were obtained. The patient's blood glucose as determined by a finger stick, was 114 mg/dL immediately prior to injection. The radiotracer was injected intravenously through left antecubital vein, without any complications. Total CT exam dose-length product 622 mGy-cm. * These CT images were obtained using dose optimization techniques as appropriate, variously including the following: Automated exposure control * Adjustment of mA and/or kV according to patient size (this includes techniques or standardized protocols for targeted exams where dose is matched to indication/reason for exam; i.e. extremities or head) * Use of iterative reconstruction technique COMPARISON: CT chest 06/26/2024. FINDINGS: SUV MAX REFERENCE: Blood: SUV 1.87 Liver: SUV; 4.37. HEAD AND NECK: There is no intracranial abnormal FDG uptake seen on the visualized images. There is a 1.3 cm right infraparotid lymph node on axial /301 with an SUV activity measuring 6.43 g/mL. There are additional lymph node activity seen level 3/4 for lymph node with an SUV activity measuring 3.37 g/mL on axial PET imaging /301 no additional areas of abnormal activity seen. CHEST: Ports and Devices: None Lungs: There is a 1.8 cm bilobed lesion in the right lung apex with with moderate FDG activity and SUV of 3.9. There is a left lower lobe 1.1 cm nodule in axial CT slice 145/2 with mild FDG activity with SUV of 0.8 g/mL there are other pulmonary nodules with little to no FDG activity seen is background. Pleura: No significant pleural effusion. No abnormal metabolic activity seen Lymph Nodes: No tracer-avid mediastinal, hilar or internal mammary or axillary lymphadenopathy. Mediastinum: There is no significant pericardial effusion/thickening. Breasts/Chest Wall: There is a focal activity seen in the left breast nodule measuring [address] slice 144/2 and SUV measurement 1.13 g/mL ABDOMEN/PELVIS: Liver/Biliary System: Visualized liver, ducts are grossly unremarkable. There are multiple gallstones in a contracted gallbladder. The pancreas is normal size. Visualized stomach, small bowel loops and colon is unremarkable on CT. There is a small focal lesion posterior and lateral to the stomach likely an outpouching. Differential diagnosis includes lymph node versus exophytic gastric wall mass Pancreas: Normal.No pancreatic ductal dilatation seen. Spleen: The spleen is normal No evidence of splenomegaly. Adrenal Glands: No abnormal radiotracer uptake. Kidneys: No hydronephrosis, hydroureter or renal calculi bilaterally. Bowel: Focal FDG activity seen along the posterior gastric wall. There is a soft tissue mass in this area measuring 2.[address] slice 103/2. It has an SUV of 14.43 and suspicious of a gastric wall lesion or a lymph node that has areas of abnormal activity seen in the GI tract. No abnormal lymph nodes. Lymph Nodes: No tracer avid retroperitoneal, mesenteric or pelvic and/or groin lymphadenopathy. Pelvic Organs: The urinary bladder is underdistended. MUSCULOSKELETAL: Moderate metabolic activity seen in the left shoulder and mild activity in the right shoulder related to DJD. VASCULAR: Unremarkable except for mild atherosclerosis of abdominal aorta, bilateral common iliac and external iliac arteries. THE SITE(S) OF MOST INTENSE FDG AVIDITY AND SUV MAX: In the bladder, SUV 77 PET/PET CT fusion skull to thigh IMPRESSION: 1187 bilobed lesion in the right lung apex with moderate FDG activity and suspicious. There is a left lower lobe 1. Centimeter nodule mildly FDG active measuring 0.8. Mild FDG active left breast nodule. SUV 1.13. Correlate with mammogram. Focal nodule posterior left gastric wall with an SUV of 14, suspicious of a lymph node or exophytic gastric wall mass. No abnormal mediastinal, axillary, neck or retroperitoneal lymph nodes activity seen. Nonspecific FDG active lymph node or nodule inferior to right parotid gland corresponding to a solitary lymph node Reactive level 3/4 right neck lymph node Electronically signed by: Steve Stout MD 08/01/2024 03:12 PM EDT
--- OUTSIDE RECORDS SUMMARY | 2024-08-01 10:27 | XMS_ITS | Patient Health Record ---
Author Organization [facility] Address [address] [place] [address] Care Team Providers Care Ux Manager Name Role Phone JONATHAN BOWMAN Primary Care Provider Valentin Dick Unavailable [phone] Reason For Referral No Information Medications Medication SIG (Take, Route, Frequency, Duration) Notes Start Date End Date Status Aspir-81 81 MG 1 tablet Orally Once a day for 30 day(s) Active Fish Oil 1000 MG 1 capsule Orally Onc e a day for 30 day(s) Active D3 Adult 1000 UNIT 1 tablet Orally Once a day for 30 day(s) Active Z50-Wayhbq 1 MG as directed Orally Active MagOx [...] Problem Status W/U Status Risk Notes Problem 623184342 Low back pain (M54.5) Active confirmed Problem 19910461 Other chronic pain (G89.29) Active confirmed Problem 322286040 Facet arthropathy of spine (M47.819) Active confirmed Plan Of Treatment Pending Test Test Name Order Date MRI LSP W/O CONTRAST 10/05/2017 Insurance Providers Payer Name Payer Address Payer Phone Subscriber Number Group Number Insured Name Patient Relationship to Insured Coverage Start Date Coverage End Date [employer] [facility] [facility] [address] [address] [place] [phone] [id number] July Self - patient is the insured Medical (General) History Medical History History ICD Code HBP Surgical History Surgery Date(Month/Year) 3 C Sections 1960,62,63 Hysterectomy 2009
== END 2024-08-01 09:31 | disposition home or self-care (01) ==
LOC: HO.PET 09:30
PROVIDERS: Visit Provider Hospitalist
DX: Z13.89 Encounter for screening for other disorder (principal)

== ENCOUNTER → 2024-08-04 12:05 | Day surgery (SDC) | payer MEDICARE, SELFPAY ==
--- OUTSIDE RECORDS SUMMARY | 2024-08-04 11:27 | XMS_ITS | Patient Health Record ---
Author Organization [facility] Address [address] [place] [address] Care Team Providers Care Private Security Guard Name Role Phone JONATHAN BOWMAN Primary Care Provider Valentin Dick Unavailable [phone] Reason For Referral No Information Medications Medication SIG (Take, Route, Frequency, Duration) Notes Start Date End Date Status Aspir-81 81 MG 1 tablet Orally Once a day for 30 day(s) Active Fish Oil 1000 MG 1 capsule Orally Onc e a day for 30 day(s) Active D3 Adult 1000 UNIT 1 tablet Orally Once a day for 30 day(s) Active F65-Yiqzfw 1 MG as directed Orally Active MagOx [...] Problem Status W/U Status Risk Notes Problem 902255465 Low back pain (M54.5) Active confirmed Problem 06524355 Other chronic pain (G89.29) Active confirmed Problem 281153698 Facet arthropathy of spine (M47.819) Active confirmed Plan Of Treatment Pending Test Test Name Order Date MRI LSP W/O CONTRAST 10/05/2017 Insurance Providers Payer Name Payer Address Payer Phone Subscriber Number Group Number Insured Name Patient Relationship to Insured Coverage Start Date Coverage End Date [employer] [facility] [address] [address] [place] [phone] [id number] July Self - patient is the insured Medical (General) History Medical History History ICD Code HBP Surgical History Surgery Date(Month/Year) 3 C Sections 1960,62,63 Hysterectomy 2009
[2024-08-04] MEDS: Albuterol Sulfate (0.083%) 2.5 MG/3 ML VIAL.NEB INHALE (12:46)
--- NOTE | 2024-08-04 13:22 | PC.NURSE ---
patient's pulmonary health was not optimal for today's procedure. dr. sullivan and dr. lew at bedside with patient and daughter updating them regarding PET scan findings, reason for cancelling today's procedure and how to be ready to reschedule another EGD. Patient and daughter will have a visit with dr. lew at her office soon. No IV was placed today. Patient left with daughter and all of her belongings.
== END ==
LOC: HO.SSS 12:05
PROVIDERS: PCP Internal Medicine; Visit Provider Internal Medicine
DX: R93.3 Abnormal findings on diagnostic imaging of other parts of digestive tract (principal); Z53.09 Procedure and treatment not carried out because of other contraindication; R91.8 Other nonspecific abnormal finding of lung field

== ENCOUNTER 2024-08-08 14:32 | Outpatient (AMB) | payer MEDICARE, SELFPAY ==
--- NOTE | 2024-08-08 14:42 | MHC.OFFVIS ---
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 Plan is for flexible sigmoidoscopy tomorrow to visualize the possible fistula in the sigmoid colon connecting to the vaginal cuff. This was seen on a recent CT after patient reported to the ED with passing gas and stool vaginally and a UTI. She reports that she does have an inhaler for an unknown reason, she is a smoker, and often wheezes in the morning. The patient had a CT scan of the abdomen which I personally reviewed. There was about a cm nodular density in the left lower lobe and a small subcentimeter nodule in the right lower lobe. Again this is limited just to the lower lung cuts of the abdominal CT scan. And she does need a formal CT scan of the chest. However, right now she is going through a lot with her GI and pc analyst issue. I did recommend that the patient gets treated for the active issues and when she is discharged she undergoes a CT scan of the chest deformity follow-up with their findings. In the meantime she does smoke. 01/18/2024 the patient is here for a pulmonary hospital follow-up visit. Apparently the patient was admitted and underwent a CT scan of the abdomen with a found that nodular density. She ultimately underwent a CT scan of the chest which I personally reviewed. I did review with her. This CT scan was done in 12/12/2023. She does have a 12 mm pulmonary nodule in the left lower lobe which appears to be smooth border. In addition to that she has more irregular subsolid irregular nodular density measuring around 10 mm in size. The patient is a smoker and therefore she is a high-risk for cancer. She also has significant atherosclerosis. No significant emphysema although she does have evidence of chronic bronchitis. The patient does have a rescue inhaler that she does not have to use it. She did complete a course of Augmentin because of another infection. Therefore, be reasonable to place her on Wixela. She can use it once a day with the hope that this right upper lobe area is more inflammatory. She can use Wixela daily. And then will plan to repeat the CT scan 3 months from her last 1. Then will follow-up. If this area is persistent in changing then will talk about further diagnostic interventions. Otherwise will follow-up then. Depending on the findings in the CT scan will decide if she needs a CT scan. Right now she is not ready to quit smoking. But she is consider cutting down some. 03/27/2024 the patient is here for a pulmonary follow-up visit. Overall she is doing okay. The patient has been using the Wixela although she does not feel like he has been very helpful. She does not use it regularly. I did recommend she least use it daily. She should rinse her mouth after using it. She understands that she is not going to get an acute response to the medications since his longer acting. But it will help. She continues to smoke cigarettes. She is not ready to quit. In addition to that she had a repeat CT scan which we personally reviewed and compared to her CT scan from 12/12/2023. Looks like the irregular nodular density appears to be a little more spiculated in the right upper lobe. Also a little denser when compared to 3 months prior. Her other nodules are well-circumscribed. We did talk about different options including PET scan versus biopsy versus repeating the CT scan in 3 months. At this point the patient just rather follow it another [address] scan to see how progressing. At that point if it progresses further will talk about further diagnostic interventions. But for now will follow. She will continue with current respiratory therapy. She is also going to work on cutting down her smoking. 07/26/2024 the patient is here for pulmonary follow-up visit. She has multiple complaints including abdominal discomfort because of a ventral hernia and also some now back pain with some sciatica. This is most of her complaints. Does not really have any respiratory complaints. Doing okay from a breathing standpoint. The patient did have a recent CT scan of the chest which which we personally reviewed demonstrating the persistent irregular nodular density in the l right upper lobe which is concerning nature. She had initially visualized back in April and now 3 months later still there and is concerning in appearance. Based on her comorbidities will go ahead and request a PET scan to see how metabolically active this is in order to consider the best place to biopsy. She will continue with current therapy. She is going to work with her surgeon regarding her ventral hernia and will follow-up with her primary care doctor regarding her back pain. Once I get the PET scan will call them. The patient follow-up in 6 months with mean to reassess. 08/08/2024 the patient is here for sick visit. Apparently she was scheduled to undergo an endoscopy and was canceled due to her significant wheezing. She had been exposed to significant amount of allergies recently and had significant wheezing then. She was set up today. I will today she does have some wheezing but minimal. Will go ahead and set up with a nebulizer treatment. It did relieve some of the wheezing. Will also give her a short course of prednisone. The patient will continue her respiratory therapy and she is going to from frame from smoking. We did review the PET scan demonstrating the FDG avid pulmonary nodule in the right upper lobe. In addition to that the significant FDG avid masslike density in the stomach. She is going to hopefully undergo undergo an endoscopy soon. In view of my exam in her respiratory wheezing I do believe that she will be okay to have the procedure in a few weeks. She should be finishing up the therapy the medicines just prior to that. If she has any questions or concerns she can call for any other recommendations. She will be provided a nebulizer today to use twice a day with albuterol. [facility] Medical History (Updated 08/08/24 @ 21:41 by Joe Del Valle MD) COPD (chronic obstructive pulmonary disease) Colovaginal fistula Parastomal hernia Pulmonary nodules Chronic back pain Smoker Hypertension Surgical History Hx of surgical procedure (~12/24/23) H/O removal of cyst History of hysterectomy H/O hernia repair Previous section Social History Household Members: Family Housing: House Housing Other:: in-law apartment Are you a primary district manager primary care sales to a significant other at home: No Do you presently have visiting nurse or other home services: No Comment: rings appropriately Patient Tobacco Use Status: Current everyday Tobacco user Tobacco use type: Cigarette Cigarettes Per Day: 3 Years Smoked: 50 Second Hand Smoke Exposure: No Advance Directives Date on File: 12/22/23 service: No Review of Systems Const Denies chills and Denies fever(s) ENT Reports nasal congestion Card Denies chest pain and Reports dyspnea on exertion Resp Reports cough, Reports dyspnea on exertion and Reports wheezing GI Reports as per HPI and Reports abdominal pain Musc Reports back pain, Reports myalgias and Reports radiating pain into limb Skin/Breast Denies rash Fei/Lymph Reports no additional complaints Aller/Immun Reports wheezing Physical Exam Vital Signs: Last Vital Signs Pulse 68 08/08/24 14:43 BP 130/54 L 08/08/24 14:43 Pulse Ox 97 08/08/24 14:43 Oxygen Delivery Method Room Air 08/08/24 14:43 BMI result Body Mass Index 28.2 Last Vital Signs Temp 98.3 F 12/23/23 08:10 Pulse 63 12/23/23 08:10 Resp 16 12/23/23 08:10 BP 125/46 L 12/23/23 08:10 Pulse Ox 94 12/23/23 08:10 O2 Del Method Room Air 12/23/23 08:10 BMI result Body Mass Index 29.6 Const General: comfortable HEENT Head: Yes normocephalic Neck Neck: Yes supple Chest Chest palpation & inspection: normal inspection of the chest Resp Effort & Inspection: normal respiratory effort Auscultation: wheezes and diminished lung sounds Cardio Heart sounds: S1 normal heart sound present and S2 normal heart sound present GI Palpation (GI): Soft to palpation Skin General skin exam: no rashes or lesions noted Extrem General: No clubbing and No cyanosis Assessment & Plan Assessment & Plan (1) Pulmonary nodules: Code(s): R91.8 - Other nonspecific abnormal finding of lung field Category: Medical (2) Smoker: Code(s): F17.200 - Nicotine dependence, unspecified, uncomplicated Category: Social Hx (3) Pulmonary nodule 1 cm or greater in diameter: Code(s): R91.1 - Solitary pulmonary nodule Category: Medical (4) Gastric mass: Code(s): K31.89 - Other diseases of stomach and duodenum Category: Medical (5) COPD (chronic obstructive pulmonary disease): Code(s): J44.9 - Chronic obstructive pulmonary disease, unspecified Category: Medical Qualifiers: COPD type: COPD with acute exacerbation Qualified Code(s): J44.1 - Chronic obstructive pulmonary disease with (acute) exacerbation Plan continue Wixela daily start Prednisone start nebulizer with albuterolm BID Proceed with EGD after 2 weeks of therapy holding off on the pulmonary nodule evaluation. The patient declines any evaluation or treatment. We will re-discuss after the GI evaluation Tobacco cessation: pt is not ready to quit. usually cuts down in the winter F/U in 3 months Medications: New albuterol sulfate 2.5 mg (3 mL) inhalation BID 180 mL 11RF 30 days Coding Level of Care Code Est Pt Level 4 (42755) Complex EM visit Add On G2211 Diagnoses Pulmonary nodules R91.8 Smoker F17.200 Pulmonary nodule 1 cm or greater in diameter R91.1 Gastric mass K31.89 Chronic obstructive pulmonary disease with acute exacerbation J44.1 COPD type: COPD with acute exacerbation Time Spent (min) 18
[2024-08-08 14:43] VITALS: BP 130/54; PULSE 68; O2SAT 97; BMI 28.2
--- OUTSIDE RECORDS SUMMARY | 2024-08-08 16:52 | XMS_ITS | Patient Health Record ---
Author Organization [facility] Address [address] [place] [address] Care Team Providers Care Cage Maker Machine Name Role Phone JONATHAN BOWMAN Primary Care Provider Valentin Dick Unavailable [phone] Reason For Referral No Information Medications Medication SIG (Take, Route, Frequency, Duration) Notes Start Date End Date Status Aspir-81 81 MG 1 tablet Orally Once a day for 30 day(s) Active Fish Oil 1000 MG 1 capsule Orally Onc e a day for 30 day(s) Active D3 Adult 1000 UNIT 1 tablet Orally Once a day for 30 day(s) Active H89-Gjvutc 1 MG as directed Orally Active MagOx [...] Problem Status W/U Status Risk Notes Problem 652488470 Low back pain (M54.5) Active confirmed Problem 25881939 Other chronic pain (G89.29) Active confirmed Problem 216255855 Facet arthropathy of spine (M47.819) Active confirmed Plan Of Treatment Pending Test Test Name Order Date MRI LSP W/O CONTRAST 10/05/2017 Insurance Providers Payer Name Payer Address Payer Phone Subscriber Number Group Number Insured Name Patient Relationship to Insured Coverage Start Date Coverage End Date [employer] [facility] [address] [address] [place] [address] [id number] July Self - patient is the insured Medical (General) History Medical History History ICD Code HBP Surgical History Surgery Date(Month/Year) 3 C Sections 1960,62,63 Hysterectomy 2009
== END 2024-08-08 15:22 | disposition home or self-care (01) ==
LOC: HO.HPS 14:33
PROVIDERS: PCP Internal Medicine; Visit Provider Hospitalist
DX: R91.8 Other nonspecific abnormal finding of lung field (principal); F17.200 Nicotine dependence, unspecified, uncomplicated; R91.1 Solitary pulmonary nodule; K31.89 Other diseases of stomach and duodenum; J44.1 Chronic obstructive pulmonary disease with (acute) exacerbation
CPT/HCPCS: 99214; G2211

== ENCOUNTER → 2024-08-08 14:32 | Outpatient (BNVA) | payer MEDICARE, SELFPAY | PROVIDERS: PCP Internal Medicine; Visit Provider Hospitalist | DX: R91.1 Solitary pulmonary nodule (principal); R91.8 Other nonspecific abnormal finding of lung field; K31.89 Other diseases of stomach and duodenum; J44.9 Chronic obstructive pulmonary disease, unspecified; F17.200 Nicotine dependence, unspecified, uncomplicated | CPT/HCPCS: 99212 ==

== ENCOUNTER 2024-08-21 13:06 | Outpatient (AMB) | payer MEDICARE, SELFPAY ==
--- NOTE | 2024-08-21 13:10 | MHC.OFFVIS ---
Vital Signs 08/21/24 13:12 Height 5 ft Weight 154 lb 5.177 oz BMI 30.1 BP 137/60 Blood Pressure Location Lt brachial Position Sitting Pulse 86 Intake Visit Reasons: Per Dr. Roldan , gastric mass Intake Note: Linda presents in the office as a new patient for a gastric mass. CC: She states that she is not having any GI concerns at this time. Electronic Calibration Technician Required: No Allergies No Known Allergies Allergy (Verified 08/08/24 14:46) HPI Comments Details: 84 y.o F with PMH of colovaginal fistula s/p end colostomy 2023 who was referred to our office for abnormal PET scan findings. Patient follows with Dr. Del Valle for COPD and pulmonary nodules. She had a recent PET-CT done 08/01/2024 to follow-up on multiple lung nodules that also incidentally showed posterolateral FDG avid focus in the stomach. PET-CT unable to distinguish if this was gastric wall mass versus lymph node. Patient herself without any abdominal pain, nausea, vomiting. Ostomy has to be empty 2 to 3 times a day. No blood in ostomy. Does report bloating and significant gas and ostomy at times. Last CT abdomen pelvis done in April 2024 was without contrast, did not show any lymphadenopathy in that area. [facility] Medical History COPD (chronic obstructive pulmonary disease) Colovaginal fistula Parastomal hernia Pulmonary nodules Chronic back pain Smoker Hypertension Surgical History Hx of surgical procedure (~12/24/23) H/O removal of cyst History of hysterectomy H/O hernia repair Previous section Social History Household Members: Family Housing: House Housing Other:: in-law apartment Are you a primary disabilities caregiver to a significant other at home: No Do you presently have visiting nurse or other home services: No Comment: rings appropriately Patient Tobacco Use Status: Current everyday Tobacco user Tobacco use type: Cigarette Cigarettes Per Day: 3 Years Smoked: 50 Second Hand Smoke Exposure: No Advance Directives Date on File: 12/22/23 service: No Review of Systems Const All systems reviewed & are unremarkable except as noted in HPI and below Physical Exam Vital Signs: Last Vital Signs Pulse 86 08/21/24 13:12 BP 137/60 08/21/24 13:12 BMI result Body Mass Index 30.1 Elderly female Accompanied by daughter Wearing nasal cannula No acute distress Nonicteric abd soft, LUQ ostomy with healthy appearing stoma, brown semisolid stool. Assessment & Plan Assessment & Plan (1) Gastric mass: Code(s): K31.89 - Other diseases of stomach and duodenum Category: Medical (2) Pulmonary nodule 1 cm or greater in diameter: Code(s): R91.1 - Solitary pulmonary nodule Category: Medical (3) Smoker: Code(s): F17.200 - Nicotine dependence, unspecified, uncomplicated Category: Social Hx (4) COPD (chronic obstructive pulmonary disease): Code(s): J44.9 - Chronic obstructive pulmonary disease, unspecified Category: Medical Qualifiers: COPD type: COPD with acute exacerbation Qualified Code(s): J44.1 - Chronic obstructive pulmonary disease with (acute) exacerbation Plan Patient was initially scheduled for urgent EGD on 08/04. However, case had to be canceled that day due to COPD exacerbation and audible wheezing that day. Discussed with patient and her daughter today, that based on PET scan imaging, will recommend a barium swallow with upper GI series first to determine the location of the mass. If the mass is intragastric, will proceed with upper endoscopy for possible biopsy. However, if no mass is identified on barium swallow, would recommend CT abdomen pelvis with IV contrast to delineate the exact location of possible exophytic gastric mass. Pt and daughter would like to be called with results of barium swallow. In the meantime, empiric omeprazole and simethicone prescribed to the patient for abdominal bloating and distention. She was also advised to avoid high FODMAP food. Follow up based on above. Orders: Orders [place] upper GI w Ba Swallow Today K31.89 - Other diseases of stomach and duodenum Medications: New omeprazole 20 mg PO DAILY 90 caps 0RF 90 days simethicone (Gas Relief (simethicone)) 125 mg PO TID PRN 90 tabs 1RF abdominal distention Coding Level of Care Code New Pt Level 4 (75751) Complex EM visit Add On G2211 Diagnoses Gastric mass K31.89 Pulmonary nodule 1 cm or greater in diameter R91.1 Smoker F17.200 Chronic obstructive pulmonary disease with acute exacerbation J44.1 COPD type: COPD with acute exacerbation
[2024-08-21 13:12] VITALS: BP 137/60; PULSE 86; BMI 30.1
--- OUTSIDE RECORDS SUMMARY | 2024-08-21 13:33 | XMS_ITS | Patient Health Record ---
Author Organization [facility] Address [address] [place] [address] Care Team Providers Care Head Of Visual Merchandising Name Role Phone JONATHAN BOWMAN Primary Care Provider Valentin Dick Unavailable [phone] Reason For Referral No Information Medications Medication SIG (Take, Route, Frequency, Duration) Notes Start Date End Date Status Aspir-81 81 MG 1 tablet Orally Once a day for 30 day(s) Active Fish Oil 1000 MG 1 capsule Orally Onc e a day for 30 day(s) Active D3 Adult 1000 UNIT 1 tablet Orally Once a day for 30 day(s) Active B92-Lvixhm 1 MG as directed Orally Active MagOx [...] Problem Status W/U Status Risk Notes Problem 129698932 Low back pain (M54.5) Active confirmed Problem 80553751 Other chronic pain (G89.29) Active confirmed Problem 873106694 Facet arthropathy of spine (M47.819) Active confirmed Plan Of Treatment Pending Test Test Name Order Date MRI LSP W/O CONTRAST 10/05/2017 Insurance Providers Payer Name Payer Address Payer Phone Subscriber Number Group Number Insured Name Patient Relationship to Insured Coverage Start Date Coverage End Date [employer] [facility] [address] [address] [place] [address] [id number] July Self - patient is the insured Medical (General) History Medical History History ICD Code HBP Surgical History Surgery Date(Month/Year) 3 C Sections 1960,62,63 Hysterectomy 2009
--- OUTSIDE RECORDS SUMMARY | 2024-08-21 13:34 | XMS_ITS | Data Portability ---
Author Organization [place] - [facility], HOSPITAL - IP Address [address] [place] [address] Care Team Providers Care Wet End Helper Name Role Phone JONATHAN BOWMAN Primary Care [...] Modified By Organization Details Last Modified Time 09/08/20169 Peripheral Arterial Disease (PAD): Care Instructions STEPHANIE Not available 10/11/2016 05:01:23 03/16/2017 [id number] Peripheral Arterial Disease (PAD): Care Instructions Not available 03/20/2017 01:57:32 09/27/2017 [id number] Peripheral Arterial Disease (PAD): Care Instructions Not available 09/29/2017 17:59:47 10/22/2017 [id number] Peripheral Arterial Disease (PAD): Care Instructions Not available 10/27/2017 13:44:32 05/06/2018 [id number] Peripheral Arterial Disease (PAD): Care Instructions Not available 05/10/2018 19:09:40 Reason for Referral None Reported. Results Created Date Observation Date Name Description Value Unit Range Abnormal Flag Note LastModifiedBy Organization Detail LastModifiedTime 09/29/19 18 elect lemuelar diogr am No observ ation record ed. [facility] [address], [place], [address], 09/28/2017 15:37:29 10/23/19 18 US, carot id arter y No observ ation record ed. [facility] [address], [place], [address], 10/22/2017 19:15:59 Result Notes None recorded. Problems No Known Problems Procedures Surgical History Date Name Laterality Status Provider Name and Address Organization Details Recorded Time delivery completed [facility] 02/20/2016 16:57:55 Hysterectomy/bladd er repair completed [facility] 02/20/2016 16:58:01 Genitourinary Surgery completed [facility] 02/20/2016 16:58:[address] [facility] 02/20/2016 16:58:21 Orthopaedic Surgery completed [facility] 02/20/2016 16:58:32 Removal of tonsils completed [facility] 02/20/2016 16:58:39 Appendectomy completed [facility] 02/20/2016 16:58:44 Imaging Results None recorded. Procedure Notes None recorded. Medical Equipment None [...] Not Available No t Available Fluzone High-Dose 4628-4830 (PF) 180 mcg/0.5 mL intramuscular syringe ADM 0.5ML IM UTD 02/19 completed Not Available Not Available Not Available Fluzone High-Dose 4940-7860 (PF) 180 mcg/0.5 mL intramuscular syringe ADM 0.5ML IM UTD 03/16 completed Not Available Not Available Not Available Fluzone High-Dose 7475-3064 (PF) 180 mcg/0.5 mL intramuscular syringe ADM 0.5ML IM UTD 05/06 completed Not Available Not Available Not Available Vitals Date Recorded Body height Respiratory rate Body mass index (BMI) Body weight Heart rate Oxygen saturation Oxygen saturation in Arterial blood by Pulse oximetry Systolic blood pressure Diastolic blood pressure Provider Name and Address Organization Details Last Updated DateTime 8 152.4 cm 16 /min 30.9 kg/m2 80766.5 9 g 75 /min 98 % 98 % 110 mm[Hg] 78 mm[Hg] Emma Pradhan [facility] [place] 8 15:33:46 Date Recorded Body height Respiratory rate Body mass index (BMI) Body weight Heart rate Oxygen saturation Oxygen saturation in Arterial blood by Pulse oximetry Systolic blood pressure Diastolic blood pressure Provider Name and Address Organization Details Last Updated DateTime 9 152.4 cm 16 /min 31.5 kg/m2 51280.8 1 g 68 /min 97 % 97 % 130 mm[Hg] 72 mm[Hg] Lyn Sauceda [facility] [place] 9 16:30:59 Date Recorded Body mass index (BMI) Body weight Respiratory rate Heart rate Oxygen saturation Oxygen saturation in Arterial blood by Pulse oximetry Systolic blood pressure Diastolic blood pressure Provider Name and Address Organization Details Last Updated DateTime 7 31.4 kg/m2 45637.3 7 g 16 /min 72 /min 98 % 98 % 122 mm[Hg] 76 mm[Hg] Emma Pradhan [facility] [place] 7 19:05:50 Date Recorded Body height Provider Name an d Address Organization Details Last Updated DateTime 09/08/2016 152.4 cm Antoinette Dee [facility] [place] 09/08/2016 18:48:16 Date Recorded Body height Heart rate Oxygen saturation Oxygen saturation in Arterial blood by Pulse oximetry Respiratory rate Body mass index (BMI) Body weight Systolic blood pressure Diastolic blood pressure Provider Name and Address Organization Details Last Updated DateTime 8 152.4 cm 66 /min 97 % 97 % 16 /min 31.1 kg/m2 37348.6 2 g 130 mm[Hg] 72 mm[Hg] diamante dickson [facility] [place] 8 19:36:01 Date Recorded Body height Respiratory rate Body mass index (BMI) Body weight Heart rate Oxygen saturation Oxygen saturation in Arterial blood by Pulse oximetry Systolic blood pressure Diastolic blood pressure Provider Name and Address Organization Details Last Updated DateTime 8 152.4 cm 16 /min 31.1 kg/m2 69687.6 2 g 73 /min 96 % 96 % 148 mm[Hg] 78 mm[Hg] Myrna chou [facility] [place] 8 16:21:51 Social History Question Answer Notes LastModified by [employer] Details LastModified Time Tobacco Smoking Status Current Every Day Smoker Emma garcia, [facility] [place] 02/20/2016 16:57:39 Do You Have An Advance Directive? No [email or web address] Information not available 02/20/2016 Diabetes Yes [email or web address] Information no t available 02/20/2016 What Type Of Diet Are You Following? REGULAR [email or web address] Information not available 02/20/2016 Which Illicit Or Recreational Drugs Have You Used? Deborah. russ Information not available 03/18/2016 Family History Of Heart Disease? Yes [email or web address] Information not available 02/20/2016 High Blood Pressure Yes [email or web address] Information not available 02/20/2016 High Cholesterol Yes Informat ion not available 02/20/2016 Marital Status [email or web address] Informatio n not available 02/20/2016 What Was The Date Of Your Most Recent Tobacco Screening? 05/06/2018 Information not available 09/14/2018 Obese No [email or web address] Information no t available 02/20/2016 Overweight Yes [email or web address] Information no t available 02/20/2016 How Much Tobacco Do You Smoke? 0.25 PPD [email or web address] Information not available 02/20/2016 General Stress Level Low [email or web address] Information not available 02/20/2016 Sex: Unknown Functional Status Question Answer Note LastModified by [employer] Details LastModified Time What is your level of alcohol consumption? None [email or web address] Information not available 02/20/2016 What is your occupation? retired Information not available 02/20/2016 What is your exercise level? Occasional [email or web address] Information not available 02/20/2016 Mental Status None recorded. Family History Relationship Description Onset Age of this Age Resolved Age Notes LastModified by Organization Details LastModified Time Father Myocardial infarction 50 [email or web address] Not available 01/23 17:06:27 Medical History Condition Response Coronary Artery Disease N CVA/TIA (Stroke) N Neurologic Disorder (Parkinson's, tremor , [place]) N COPD N Depression/Anxiety N Pacemaker N Peripheral Arterial Disease N Anemia N Genitourinary Disease N Gastrointestinal Disease N Heart Attack ([place]) N Deep Vein Thrombosis N Diabetes Y [...] SNOMED-CT Code Diagnosis ICD10 Code Diagnosis Note [id number] Warren England MD [facility] [place] [address] [place], [place] [address] [address] 02/20/2016 17:00:01 02/23/2016 14:02:13 Peripheral vascular disease 163215134 I73.9 xray showed calcificat ion of aorta. No symptoms. Do MARTINEZ for further evaluation and do US for evaluation of aneurysm as well. Hyperlipidemia 07104241 E78.5 Continue Statin Benign hypertension 1072 5009 I10 BP is controlled , reviewed the ekg, showed SR. Advised about smoking cessation [id number] Warren England MD [facility] [place] [facility] [address] [address] 03/18/2016 15:08:59 03/20/2016 15:52:57 Peripheral vascular disease 012867992 I73.9 Reviewed the MARTINEZ, normal. Possible inflow disease. No symptoms at all, no need for further testing at this point. Encouraged more walking. Symptoms improved after sciatica shot. Reviewed the MARTINEZ, appears normal. Hyperlipidemia 13162324 E78.5 Continue Statin Benign hypertension 1072 5009 I10 BP is controlled on current medical therpay. No changes in meds. [id number] Warren England MD [facility] [address] [address] 09/08/2016 18:38:53 09/09/2016 19:31:46 Peripheral vascular disease 839165073 I73.9 stable. Benign hypertension 1072 5009 I10 BP is controlled on current medical therpay. No changes in meds. Under alot of stress lately. Doing good cardiac khanna. [id number] Warren England MD OFFICE [facility] [address] [place] [address] 03/16/2017 15:25:09 03/20/2017 02:01:26 Peripheral vascular disease 016948587 I73.9 Stable. Mixed hyperlipidemia 267 414519 E78.2 Continue medical therapy. Benign hypertension 1072 5009 I10 BP is controlled on current medical therapy. No changes in meds. Doing good cardiac khanna. [id number] Warren England MD OFFICE - [place] [address] [address] 09/27/2017 18:53:00 09/29/2017 17:59:03 Peripheral vascular disease 821155690 I73.9 Stable. Reviewed the keg, showed SR. Mixed hyperlipidemia 267 976932 E78.2 Continue medical therapy. Benign hypertension 1072 5009 I10 Z72.0 BP is controlled on current medical therapy. Bruit 02446137 R09.89 do carotid US, xray showed calcificat ion in carotid artery. [id number] Warren England MD OFFICE - [place] [address] [address] 10/22/2017 16:08:13 10/27/2017 13:43:54 Benign hypertension 46564965 I10 BP is controlled at home, no change in meds for now. Reviewed US, normal. Mixed hyperlipidemia 267 872980 E78.2 Continue medical therapy. Peripheral vascular disease 025953406 I73.9 Stable. [id number] Warren England MD OFFICE [facility] [address] [address] 05/06/2018 15:43:43 05/10/2018 19:09:20 Benign hypertension 17783691 I10 Z72.0 BP is controlled at home, no change in meds for now. Mixed hyperlipidemia 267 141673 E78.2 Continue medical therapy. Peripheral vascular disease 192149736 I73.9 Stable. no change in meds Health Concerns Section Related Observation LastModified by Organization Detai ls LastModified Time None Recorded Concern Status LastModified by Organization Details LastModified Time None Recorded Advance Directives Directive N: Payers Insurance Date Sequence Insurance Name Policy Number Policy Hall Covered Member ID Hall Member ID Guarantor Name 02/25/2016 1 [employer] [facility] (MEDICAID HMO) July Arel [id number] July Arel 09/05/2016 1 [employer] (MEDICARE REPLACEMENT/AD VANTAGE - PPO) July Arel [id number] July Arel 11/08/2018 1 [employer] (MEDICARE REPLACEMENT/AD VANTAGE - HMO) July Arel [id number] July Arel Notes Date Note Type Note Provider Name and Address Organization Details Recorded Time 09/08/2016 text/html Mrs. Campbell is a [age] year old female with HTN, hyperlipidemia, and DMII. She comes in today for a follow up of HTN.Patient has no complaints. Denies CP, SOB, dizziness, and swelling. Warren England MD [address] [place] [address], [phone], [facility] [place] 09/09/2016 19:32:45 03/16/2017 text/html Mrs. Campbell is a [age] year old female with HTN, hyperlipidemia, and DMII. She comes in today for a follow up of HTN. Patient has no complaints. Denies CP, SOB, dizziness, and swelling. Warren England MD [address] [place] [address], [place], [phone], [facility] [place] 03/20/2017 02:01:29 09/27/2017 text/html Mrs. Campbell is a [age] year old female with HTN, hyperlipidemia, and DMII. She comes in today for a follow up of HTN. Patient denies CP, dizziness, SOB, and abnormal swelling. She has no concerns today but states Dr Bowman told her to get her carotid arteries checked. Warren England MD [address] [place] [address], [place], [phone], [facility] [place] 09/29/2017 17:59:50 10/22/2017 text/html Mrs. Campbell is a [age] year old female with HTN, hyperlipidemia, and DMII. She comes in today for a follow up of HTN. Patient denies CP, SOB, dizziness, or swelling in BLE. Patient denies any other symptoms. Warren England MD [address] [place] [address], [phone], [facility] [place] 10/27/2017 13:44:35 05/06/2018 text/html Mrs. Campbell is a [age] year old female with HTN, hyperlipidemia, and DMII. She comes in today for a follow up of HTN. She denies CP, SOB, dizziness, and swelling in BLE. She has no other complaints today. Warren England MD [address] [place] [address], [phone], [facility] [place] 05/10/2018 19:09:42 OBGyn Episode No OBEpisode recorded.
== END 2024-08-21 15:01 | disposition home or self-care (01) ==
PROVIDERS: Visit Provider Internal Medicine
DX: K31.89 Other diseases of stomach and duodenum (principal); R91.1 Solitary pulmonary nodule; F17.200 Nicotine dependence, unspecified, uncomplicated; J44.1 Chronic obstructive pulmonary disease with (acute) exacerbation
CPT/HCPCS: 99204; G2211

== ENCOUNTER → 2024-08-21 13:06 | Outpatient (BNVA) | payer MEDICARE, SELFPAY | PROVIDERS: PCP Internal Medicine; Visit Provider Internal Medicine | DX: Z71.2 Person consulting for explanation of examination or test findings (principal); K31.89 Other diseases of stomach and duodenum; R91.1 Solitary pulmonary nodule; F17.200 Nicotine dependence, unspecified, uncomplicated; J44.9 Chronic obstructive pulmonary disease, unspecified | CPT/HCPCS: 99202 ==

== ENCOUNTER 2024-09-11 08:25 | Outpatient (REF) | payer MEDICARE, SELFPAY ==
--- NOTE | ~2024-09-11 | FL_ITS ---
EXAMINATION: XR FLUOROSCOPY UPPER GI SERIES CLINICAL INFORMATION: Gastric mass, proximal posterior antrum, FDG avid on recent PET/CT. COMPARISON: No prior available. Correlation made with PET CT 08/01/2024, as well as CT abdomen and pelvis 05/13/2024. TECHNIQUE: Fluoroscopic air contrast upper GI examination was performed utilizing standard techniques with thin and thick barium and effervescent granules. Numerous spot images were obtained. Several fluoroscopic image hold cine sequences were also obtained. FINDINGS: UPPER GI SERIES: Lateral cine images of the oropharynx and hypopharynx demonstrate normal swallow mechanism with normal epiglottic inversion and soft palate elevation. No laryngeal penetration, glottic or subglottic aspiration identified. No nasopharyngeal reflux present. Hypopharyngeal structures appear normal without evidence of mass or diverticulum. 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 Dual and single contrast images of the esophagus demonstrate normal caliber. Granular appearance to the esophageal mucosa suggesting esophagitis (RF 1-2, image 54). No gross ulceration or mass. No stricture. Esophageal peristalsis is moderately to severely disordered. No evidence of hiatus hernia identified. No significant gastroesophageal reflux was seen during the course of the examination and on reflux views. Dual contrast and single contrast images of the stomach demonstrated a granular mucosal pattern suggesting gastritis. No gross evidence of mass or gross ulceration. Rugal fold pattern is normal. Contrast freely passed into the gastric antrum and duodenal bulb without delay. Single and air-contrast images of the duodenal bulb demonstrate no abnormality. The duodenal sweep has a normal appearance, course, and mucosal fold appearance. FLUOROSCOPY TIME: 3 minutes, 2 seconds Number of Spot Images:7 Number of cines obtained: 14 DOSE AREA PRODUCT: 3336 uGy-m2 (microgray-meter squared) FL/FL upper GI w Ba Swallow IMPRESSION: 1. 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 2. Moderately to severely disordered esophageal peristalsis. 3. Granular appearance to the esophageal mucosa suggesting esophagitis. 4. No definite gastric wall mass is identified on the examination. The finding on PET/CT is likely not mucosal-based. 5. Granular appearance to the gastric mucosa noted, in keeping with mild gastritis. 6. No definite gastroesophageal reflux identified during the course of the examination. Electronically signed by: Eligio Cardenas MD 09/11/2024 11:30 AM EDT
--- OUTSIDE RECORDS SUMMARY | 2024-09-11 08:33 | XMS_ITS | Patient Health Record ---
Author Organization [facility] Address [address] [place] [address] Care Team Providers Care Fold Skiver Name Role Phone JONATHAN BOWMAN Primary Care Provider Valentin Dick Unavailable [phone] Reason For Referral No Information Medications Medication SIG (Take, Route, Frequency, Duration) Notes Start Date End Date Status Aspir-81 81 MG 1 tablet Orally Once a day for 30 day(s) Active Fish Oil 1000 MG 1 capsule Orally Onc e a day for 30 day(s) Active D3 Adult 1000 UNIT 1 tablet Orally Once a day for 30 day(s) Active G97-Shzfex 1 MG as directed Orally Active MagOx [...] Problem Status W/U Status Risk Notes Problem 673799807 Low back pain (M54.5) Active confirmed Problem 11509283 Other chronic pain (G89.29) Active confirmed Problem 410232443 Facet arthropathy of spine (M47.819) Active confirmed Plan Of Treatment Pending Test Test Name Order Date MRI LSP W/O CONTRAST 10/05/2017 Insurance Providers Payer Name Payer Address Payer Phone Subscriber Number Group Number Insured Name Patient Relationship to Insured Coverage Start Date Coverage End Date [employer] [facility] [address] [address] [place] [address] [id number] July Self - patient is the insured Medical (General) History Medical History History ICD Code HBP Surgical History Surgery Date(Month/Year) 3 C Sections 1960,62,63 Hysterectomy 2009
--- OUTSIDE RECORDS SUMMARY | 2024-09-11 08:33 | XMS_ITS | Data Portability ---
Author Organization [place] - [facility], HOSPITAL - IP Address [address] [place] [address] Care Team Providers Care Contracting Specialist Name Role Phone JONATHAN BOWMAN Primary Care Provider [phone] Assessment No assessment recorded. Plan of Treatment [...] Instructions STEPHANIE Not available 10/11/2016 05:01:23 03/16/2017 [id number] Peripheral Arterial Disease (PAD): Care Instructions Not available 03/20/2017 01:57:32 09/27/2017 [id number] Peripheral Arterial Disease (PAD): Care Instructions Not available 09/29/2017 17:59:47 10/22/2017 [id number] Peripheral Arterial Disease (PAD): Care Instructions Not available 10/27/2017 13:44:32 05/06/2018 [id number] Peripheral Arterial Disease (PAD): Care Instructions Not available 05/10/2018 19:09:40 Reason for Referral None Reported. Results Created Date Observation Date Name Description Value Unit Range Abnormal Flag Note LastModifiedBy Organization Detail LastModifiedTime 09/29/19 18 elect lemuelar diogr am No observ ation record ed. [facility] [address], [place], [address], 09/28/2017 15:37:29 10/23/19 18 US, carot id arter y No observ ation record ed. [facility] [address], [place], [address], 10/22/2017 19:15:59 Result Notes None recorded. Problems No Known Problems Procedures Surgical History Date Name Laterality Status Provider Name and Address Organization Details Recorded Time delivery completed [facility] 02/20/2016 16:57:55 Hysterectomy/bladd er repair completed [facility] 02/20/2016 16:58:01 Genitourinary Surgery completed [facility] 02/20/2016 16:58:12 Other completed [facility] 02/20/2016 16:58:21 Orthopaedic Surgery completed [facility] 02/20/2016 16:58:32 Removal of tonsils completed [place] [facility] 02/20/2016 16:58:39 Appendectomy completed [facility] 02/20/2016 16:58:44 Imaging Results None recorded. Procedure [...] Not Available No t Available Fluzone High-Dose [id number] (PF) 180 mcg/0.5 mL intramuscular syringe ADM 0.5ML IM UTD 02/19 completed Not Available Not Available Not Available Fluzone High-Dose [id number] (PF) 180 mcg/0.5 mL intramuscular syringe ADM 0.5ML IM UTD 03/16 completed Not Available Not Available Not Available Fluzone High-Dose [id number] (PF) 180 mcg/0.5 mL intramuscular syringe ADM 0.5ML IM UTD 05/06 completed Not Available Not Available Not Available Vitals Date Recorded Body height Respiratory rate Body mass index (BMI) Body weight Heart rate Oxygen saturation Oxygen saturation in Arterial blood by Pulse oximetry Systolic And Diastolic Provider Name and Address Organization Details Last Updated DateTime 8 152.4 cm 16 /min 30.9 kg/m2 89387.5 9 g 75 /min 98 % 98 % 110/78 mm[Hg] Emma [facility] [place] 8 15:33:46 Date Recorded Body height Respiratory rate Body mass index (BMI) Body weight Heart rate Oxygen saturation Oxygen saturation in Arterial blood by Pulse oximetry Systolic And Diastolic Provider Name and Address Organization Details Last Updated DateTime 9 152.4 cm 16 /min 31.5 kg/m2 63612.8 1 g 68 /min 97 % 97 % 130/72 mm[Hg] Lyn Sauceda [facility] [place] 9 16:30:59 Date Recorded Body mass index (BMI) Body weight Respiratory rate Heart rate Oxygen saturation Oxygen saturation in Arterial blood by Pulse oximetry Systolic And Diastolic Provider Name and Address Organization Details Last Updated DateTime 7 31.4 kg/m2 11958.3 7 g 16 /min 72 /min 98 % 98 % 122/76 mm[Hg] Emma Pradhan [facility] [place] 7 19:05:50 Date Recorded Body height Provider Name an d Address Organization Details Last Updated DateTime 09/08/2016 152.4 cm Antoinette Dee [facility] [place] 09/08/2016 18:48:16 Date Recorded Body height Heart rate Oxygen saturation Oxygen saturation in Arterial blood by Pulse oximetry Respiratory rate Body mass index (BMI) Body weight Systolic And Diastolic Provider Name and Address Organization Details Last Updated DateTime 8 152.4 cm 66 /min 97 % 97 % 16 /min 31.1 kg/m2 53875.6 2 g 130/72 mm[Hg] diamante dickson [facility] [place] 8 19:36:01 Date Recorded Body height Respiratory rate Body mass index (BMI) Body weight Heart rate Oxygen saturation Oxygen saturation in Arterial blood by Pulse oximetry Systolic And Diastolic Provider Name and Address Organization Details Last Updated DateTime 8 152.4 cm 16 /min 31.1 kg/m2 66473.6 2 g 73 /min 96 % 96 % 148/78 mm[Hg] Myrna chou [facility] [place] 8 16:21:51 Social History Question Answer Notes LastModified by Organizat [employer] Details LastModified Time Tobacco Smoking Status Current Every Day Smoker Emma garcia, [facility] 02/20/2016 16:57:39 Do You Have An Advance Directive? No [email or web address] Information not available 02/20/2016 Diabetes Yes [email or web address] Information no t available 02/20/2016 What Type Of Diet Are You Following? REGULAR [email or web address] Information not available 02/20/2016 Which Illicit Or Recreational Drugs Have You Used? [email or web address]. [email or web address] Information not available 03/18/2016 Family History Of Heart Disease? Yes [email or web address] Information not available 02/20/2016 High Blood Pressure Yes [email or web address] Information not available 02/20/2016 High Cholesterol Yes [email or web address] Informat ion not available 02/20/2016 Marital Status [email or web address] Informatio n not available 02/20/2016 What Was The Date Of Your Most Recent Tobacco Screening? 05/06/2018 [id number] Information not available 09/14/2018 Obese No [email or web address] Information no t available 02/20/2016 Overweight Yes [email or web address] Information no t available 02/20/2016 How Much Tobacco Do You Smoke? 0.25 PPD [email or web address] Information not available 02/20/2016 General Stress Level Low [email or web address] Information not available 02/20/2016 Sex: Unknown Functional Status Question Answer Note LastModified by Organizat ion Details LastModified Time What is your level of alcohol consumption? None Information not available 02/20/2016 What is your occupation? retired [email or web address] Information not available 02/20/2016 What is your exercise level? Occasional [email or web address] Information not available 02/20/2016 Mental Status None recorded. Family History Relationship Description Onset Age of this Age Resolved Age Notes LastModified by Organization Details LastModified Time Father Myocardial infarction 50 [email or web address] Not available 01/23 17:06:27 Medical History Condition Response Coronary Artery Disease N CVA/TIA (Stroke) N Neurologic Disorder (Parkinson's, tremor , MS) N COPD N Depression/Anxiety N Peripheral Arterial Disease N Pacemaker N Anemia N Genitourinary Disease N Gastrointestinal Disease N Heart Attack (OK) N Deep Vein Thrombosis N Diabetes Y [...] SNOMED-CT Code Diagnosis ICD10 Code Diagnosis Note [id number] Warren England MD OFFICE - [facility] [address] [address] 02/20/2016 17:00:01 02/23/2016 14:02:13 Peripheral vascular disease 572739505 I73.9 xray showed calcificat ion of aorta. No symptoms. Do MARTINEZ for further evaluation and do US for evaluation of aneurysm as well. Hyperlipidemia 89400996 E78.5 Continue Statin Benign hypertension 1072 5009 I10 BP is controlled , reviewed the ekg, showed SR. Advised about smoking cessation [id number] Warren England MD OFFICE - [facility] [address] [address] 03/18/2016 15:08:59 03/20/2016 15:52:57 Peripheral vascular disease 896953125 I73.9 Reviewed the MARTINEZ, normal. Possible inflow disease. No symptoms at all, no need for further testing at this point. Encouraged more walking. Symptoms improved after sciatica shot. Reviewed the MARTINEZ, appears normal. Hyperlipidemia 60301177 E78.5 Continue Statin Benign hypertension 1072 5009 I10 BP is controlled on current medical therpay. No changes in meds. [id number] Warren England MD OFFICE - [facility] [address] [address] 09/08/2016 18:38:53 09/09/2016 19:31:46 Peripheral vascular disease 068725132 I73.9 stable. Benign hypertension 1072 5009 I10 BP is controlled on current medical therpay. No changes in meds. Under alot of stress lately. Doing good cardiac khanna. [id number] Warren England MD OFFICE - [facility] [address] [address] 03/16/2017 15:25:09 03/20/2017 02:01:26 Peripheral vascular disease 851946439 I73.9 Stable. Mixed hyperlipidemia 267 610497 E78.2 Continue medical therapy. Benign hypertension 1072 5009 I10 BP is controlled on current medical therapy. No changes in meds. Doing good cardiac khanna. [id number] Warren England MD OFFICE - [facility] [address] [address] 09/27/2017 18:53:00 09/29/2017 17:59:03 Peripheral vascular disease 430567640 I73.9 Stable. Reviewed the keg, showed SR. Mixed hyperlipidemia 267 409061 E78.2 Continue medical therapy. Benign hypertension 1072 5009 I10 Z72.0 BP is controlled on current medical therapy. Bruit 21575107 R09.89 do carotid US, xray showed calcificat ion in carotid artery. [id number] Warren England MD OFFICE - [facility] [address] [address] 10/22/2017 16:08:13 10/27/2017 13:43:54 Benign hypertension 61495765 I10 BP is controlled at home, no change in meds for now. Reviewed US, normal. Mixed hyperlipidemia 267 377795 E78.2 Continue medical therapy. Peripheral vascular disease 540972906 I73.9 Stable. [id number] Warren England MD OFFICE - [facility] [address] [address] 05/06/2018 15:43:43 05/10/2018 19:09:20 Benign hypertension 00343722 I10 Z72.0 BP is controlled at home, no change in meds for now. Mixed hyperlipidemia 267 524411 E78.2 Continue medical therapy. Peripheral vascular disease 526971375 I73.9 Stable. no change in meds Health Concerns Section Related Observation LastModified by Organization Detai ls LastModified Time None Recorded Concern Status LastModified by Organization Details LastModified Time None Recorded Advance Directives Directive N: Payers Insurance Date Sequence Insurance Name Policy Number Policy Hall Covered Member ID Hall Member ID Guarantor Name 02/25/2016 1 [facility] (MEDICAID HMO) July Arel [id number] July Arel 09/05/2016 1 [employer] (MEDICARE REPLACEMENT/AD VANTAGE - PPO) July Arel [id number] July Arel 11/08/2018 1 [employer] (MEDICARE REPLACEMENT/AD VANTAGE - HMO) July Arel [id number] July Arel Notes Date Note Type Note Provider Name and Address Organization Details Recorded Time 09/08/2016 text/html Mrs. Campbell is a [age] year old female with HTN, hyperlipidemia, and DMII. She comes in today for a follow up of HTN.Patient has no complaints. Denies CP, SOB, dizziness, and swelling. Warren England MD [address] [place] [address], [phone], [facility] 09/09/2016 19:32:45 03/16/2017 text/html Mrs. Campbell is a [age] year old female with HTN, hyperlipidemia, and DMII. She comes in today for a follow up of HTN. Patient has no complaints. Denies CP, SOB, dizziness, and swelling. Warren England MD [address] [place] [address], [phone], [facility] [place] 03/20/2017 02:01:29 09/27/2017 text/html Mrs. Campbell is a [age] year old female with HTN, hyperlipidemia, and DMII. She comes in today for a follow up of HTN. Patient denies CP, dizziness, SOB, and abnormal swelling. She has no concerns today but states Dr Bowman told her to get her carotid arteries checked. Warren England MD [address] [place] [address], [place], [phone], [facility] [place] 09/29/2017 17:59:50 10/22/2017 text/html Mrs. Campbell is a [age] year old female with HTN, hyperlipidemia, and DMII. She comes in today for a follow up of HTN. Patient denies CP, SOB, dizziness, or swelling in BLE. Patient denies any other symptoms. Warren England MD [address] [place] [address], [phone], [facility] [place] 10/27/2017 13:44:35 05/06/2018 text/html Mrs. Campbell is a [age] year old female with HTN, hyperlipidemia, and DMII. She comes in today for a follow up of HTN. She denies CP, SOB, dizziness, and swelling in BLE. She has no other complaints today. Warren England MD [address] [place] [address], [phone], [facility] [place] 05/10/2018 19:09:42 OBGyn Episode No OBEpisode recorded.
--- OUTSIDE RECORDS SUMMARY | 2024-09-11 08:33 | XMS_ITS | Clinical Summary ---
Author Organization [facility] Address [address] [place] [address] Phone Care Team Providers Care Scratcher Name Role Phone Nighat Chopra MD Primary Care Provider [phone] Social History Tobacco Use Types Packs/Day Years Used Date Smoking Tobacco: Never Assessed Education Answer Date Recorded Are you interested in more education? Not on karen e 12/30/2022 Are you concerned about learning? Not on file 12/30/2022 No 12/30/2022 No 12/30/2022 Digital Access Answer Date Recorded No 12/30/2022 No 12/30/2022 Reliable internet access at home? Not on file 12/30/2022 Device with a working camera? Not on file Comments Unknown Sex and Gender Information Value Date Recorded Sex Assigned at Not on file Legal Sex Female 9:47 AM EST Gender Identity Not on file Sexual Orientation Not on file Plan of Treatment Not on file Medical Devices Not on file [facility] [place] [id number] BLUE [place] MEDICARE PPO BLUE REPLACEMENT 6 [facility] [place] [facility] MEDICARE PPO BLUE REPLACEMENT Care Teams Scratcher Relationship Specialty Start Date End Date Nighat Chopra MD [address] [place] [address] [email or web address] PCP - General Internal Medicine 12/30/22 Additional Source Comments The information contained in this document represents components of the legal health record. It is not the complete legal health record.[facility]
== END 2024-09-11 08:26 | disposition home or self-care (01) ==
LOC: HO.XRAY 08:25
PROVIDERS: Visit Provider Internal Medicine
DX: K31.89 Other diseases of stomach and duodenum (principal)
CPT/HCPCS: 74240

== ENCOUNTER → 2024-09-11 09:05 | Outpatient (BNV) | payer MEDICARE, SELFPAY | PROVIDERS: Visit Provider Radiology Diagnostic Radiology | DX: K22.0 Achalasia of cardia (principal) | CPT/HCPCS: 74246 ==

== ENCOUNTER 2024-10-04 10:24 | Outpatient (REF) | payer MEDICARE, SELFPAY ==
--- NOTE | ~2024-10-04 | CT_ITS ---
EXAMINATION: CT ABDOMEN WITH CONTRAST CLINICAL INFORMATION: Other diseases of stomach and duodenum. COMPARISON: May 13, 2024. TECHNIQUE: Contiguous axial thin section helical images of the abdomen were performed following the administration of 85 mL of Omnipaque 350 intravenous contrast. The data set was reformatted in the coronal and sagittal planes and reviewed on an independent workstation. No reported immediate complications. This CT examination was performed using dose optimization techniques as appropriate, variously including the following: *Automated exposure control *Adjustment of mA and/or kV according to patient size (this includes techniques or standardized protocols for targeted exams where dose is matched to indication/reason for exam; i.e. extremities or head) *Use of iterative reconstruction technique. DLP: 204 mGy centimeter. FINDINGS: LUNG BASES: There is a 9.5 mm noncalcified lobulated nodule, left lower lung lobe/lung base. There is a 7 mm partially calcified pulmonary nodule in the anterior medial aspect of the right lower lung lobe. There are few, less than 5 mm noncalcified pulmonary nodules in the right lung base, right middle lung lobe and lingula. LIVER, GALLBLADDER, AND BILIARY TREE: Liver measures 16 cm. No focal mass. Hypodensity adjacent to the falciform ligament related to focal fatty infiltration. Main portal veins, hepatic veins and intrahepatic portion of the IVC are patent. Gallbladder is contracted with the multiple peripheral calcified structures measuring less than 16 mm within the lumen. No pericholecystic fluid collection or gallbladder wall thickening. No intrahepatic biliary ductal dilatation. Common bile duct measures 7 mm. PANCREAS: No focal mass. Punctate calcifications throughout the parenchyma. No peripancreatic fluid collection. No main pancreatic ductal dilatation. SPLEEN: 10 cm. No focal lesion. ADRENAL GLANDS AND KIDNEYS: No nodular lesions in the adrenal glands. No renal mass. No hydronephrosis. There is a dystrophic calcification in the main renal arteries pronounced on the left renal artery. No gross nephrolithiasis. Normal enhancement pattern of the renal parenchyma.. BOWEL LOOPS: Scattered diverticula in the left hemicolon. Abundant stool throughout the large intestine. There is herniation of the transverse colon through a left midline periumbilical hernia. No pneumatosis intestinalis. No pneumoperitoneum. No ascites. Terminal ileum appears normal. I do not see the appendix. Gas and fluid-filled mildly prominent small bowel loops, nonspecific. There is an ostomy on the left midline. . LYMPH NODES: No specific prominent retroperitoneum. VASCULAR: Throughout the abdominal aorta wall and iliac arteries with high degree stenosis in the distal abdominal aorta and at the origin of the common iliac arteries. Dystrophic calcifications in the origin of the main renal arteries the mesenteric arteries and desiccation seen the splenic artery and coronary arteries. No aneurysm or dissection, abdominal aorta. BONES: Multilevel thoracolumbar spondylosis. Grade 1 anterolisthesis L4-5 on a degenerative basis resulting in bilateral neuroforamina stenosis. Osteopenia versus osteoporosis. CT/CT abdomen w IV con IMPRESSION: Left midline periumbilical ostomy with herniated omental fat and segment of transverse colon. No intestinal obstruction pattern. Cholelithiasis. Atherosclerosis disease resulting in high degree stenosis distal abdominal aorta/proximal common iliac arteries. Multiple pulmonary nodules,, stable. Consider inflammatory versus infectious versus neoplasm benign and or malignant. Diverticular disease, left hemicolon. Probable chronic pancreatitis. Grade 1 anterolisthesis L4-5 resulting in bilateral neuroforamina stenosis. Fleischner guidelines were followed. Electronically signed by: Nick Mathis MD 10/04/2024 11:54 AM EDT
--- OUTSIDE RECORDS SUMMARY | 2024-10-04 11:09 | XMS_ITS | Patient Health Record ---
Author Organization [facility] Address [address] [place] [address] Care Team Providers Care Automation Clerk Name Role Phone JONATHAN BOWMAN Primary Care Provider Valentin Dick Unavailable [phone] Reason For Referral No Information Medications Medication SIG (Take, Route, Frequency, Duration) Notes Start Date End Date Status Aspir-81 81 MG 1 tablet Orally Once a day; Duration: 30 day(s) Active Fish Oil 1000 MG 1 capsule Orally Onc e a day; Duration: 30 day(s) Active D3 Adult 1000 UNIT 1 tablet Orally Once a day; Duration: 30 day(s) Active J12-Zgoudm 1 MG as directed Orally Active MagOx 400 400 (241.3 Mg) MG 1 tablet wit h food Orally Once a day; Duration: 30 day(s) Active metFORMIN HCl 500 MG 1 tablet with a yue l Orally Once a day; Duration: 30 day(s) Active Lisinopril-hydroCHLOROthiaz nell 10-12.5 MG 1 tablet Orally Once a day; Duration: 30 day(s) Active Atenolol 25 MG 1 tablet Orally Once a day; Duration: 30 day(s) Active Atorvastatin Calcium 20 MG 1 tablet Oral ly Once a day; Duration: 30 day(s) Active Social History Tobacco Use: [...] Problem Status W/U Status Risk Notes Problem Low back pain (665660458) Low back pain (M54.5) Active confirmed Problem Chronic pain (89183479) Other chronic pain (G89.29) Active confirmed Problem Arthropathy of spinal facet joint (disorder) (945584580) Facet arthropathy of spine (M47.819) Active confirmed Plan Of Treatment Pending Test Test Name Order Date MRI LSP W/O CONTRAST 10/05/2017 Insurance Providers Payer Name Payer Address Payer Phone Subscriber Number Group Number Insured Name Patient Relationship to Insured Coverage Start Date Coverage End Date [employer] [facility] [facility] [address] [address] [place] [phone] [id number] July Self - patient is the insured Medical (General) History Medical History History ICD Code HBP Surgical History Surgery Date(Month/Year) 3 C Sections 1961,62,63 Hysterectomy 2010
--- OUTSIDE RECORDS SUMMARY | 2024-10-04 11:09 | XMS_ITS | Clinical Summary ---
Author Organization [facility] Address [address] [place] [address] Phone Care Team Providers Care Rewind Operator Name Role Phone Nighat Chopra MD Primary Care Provider [phone] Social History Tobacco Use Types Packs/Day Years [...] file Medical Devices Not on file [place] [address] BLUE CROSS [place] MEDICARE PPO BLUE REPLACEMENT [facility] MEDICARE PPO BLUE REPLACEMENT Care Teams Rewind Operator Relationship Specialty Start Date End Date Nighat Chopra MD [address] [place] [phone] [email or web address] PCP - General Internal Medicine 12/30/22 Additional Source Comments The information contained in this document represents components of the legal health record. It is not the complete legal health record.[facility]
[2024-10-04 12:36] LABS: Creatinine POC 0.9 mg/dL (0.5-1.4); GFR POC > 60
== END 2024-10-04 10:25 | disposition home or self-care (01) ==
LOC: HO.CT 10:24
PROVIDERS: Visit Provider Internal Medicine
DX: K31.89 Other diseases of stomach and duodenum (principal)
CPT/HCPCS: 74160; 82565

== ENCOUNTER → 2024-10-04 10:26 | Outpatient (BNV) | payer MEDICARE, SELFPAY | PROVIDERS: Visit Provider Radiology Diagnostic Radiology | DX: K80.20 Calculus of gallbladder without cholecystitis without obstruction (principal) | CPT/HCPCS: 74160 ==

== ENCOUNTER 2024-12-07 10:50 | Outpatient (AMB) | payer MEDICARE, SELFPAY ==
[2024-12-07 10:53] VITALS: BP 122/64; PULSE 84; O2SAT 97; BMI 28.0
--- NOTE | 2024-12-07 10:53 | A.OFFVIS_ITS ---
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 Plan is for flexible sigmoidoscopy tomorrow to visualize the possible fistula in the sigmoid colon connecting to the vaginal cuff. This was seen on a recent CT after patient reported to the ED with passing gas and stool vaginally and a UTI. She reports that she does have an inhaler for an unknown reason, she is a smoker, and often wheezes in the morning. The patient had a CT scan of the abdomen which I personally reviewed. There was about a cm nodular density in the left lower lobe and a small subcentimeter nodule in the right lower lobe. Again this is limited just to the lower lung cuts of the abdominal CT scan. And she does need a formal CT scan of the chest. 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 I did recommend that the patient gets treated for the active issues and when she is discharged she undergoes a CT scan of the chest deformity follow-up with their findings. In the meantime she does smoke. 01/18/2024 the patient is here for a pulmonary hospital follow-up visit. Apparently the patient was admitted and underwent a CT scan of the abdomen with a found that nodular density. She ultimately underwent a CT scan of the chest which I personally reviewed. I did review with her. This CT scan was done in 12/12/2023. She does have a 12 mm pulmonary nodule in the left lower lobe which appears to be smooth border. In addition to that she has more irregular subsolid irregular nodular density measuring around 10 mm in size. The patient is a smoker and therefore she is a high-risk for cancer. She also has significant atherosclerosis. No significant emphysema although she does have evidence of chronic bronchitis. The patient does have a rescue inhaler that she does not have to use it. She did complete a course of Augmentin because of another infection. Therefore, be reasonable to place her on Wixela. She can use it once a day with the hope that this right upper lobe area is more inflammatory. She can use Wixela daily. And then will plan to repeat the CT scan 3 months from her last 1. Then will follow-up. If this area is persistent in changing then will talk about further diagnostic interventions. Otherwise will follow-up then. Depending on the findings in the CT scan will decide if she needs a CT scan. Right now she is not ready to quit smoking. But she is consider cutting down some. 03/27/2024 the patient is here for a pulmonary follow-up visit. Overall she is doing okay. The patient has been using the Wixela although she does not feel like he has been very helpful. She does not use it regularly. I did recommend she least use it daily. She should rinse her mouth after using it. She understands that she is not going to get an acute response to the medications since his longer acting. But it will help. She continues to smoke cigarettes. She is not ready to quit. In addition to that she had a repeat CT scan which we personally reviewed and compared to her CT scan from 12/12/2023. Looks like the irregular nodular density appears to be a little more spiculated in the right upper lobe. Also a little denser when compared to 3 months prior. Her other nodules are well-circumscribed. We did talk about different options including PET scan versus biopsy versus repeating the CT scan in 3 months. At this point the patient just rather follow it another [address] scan to see how progressing. At that point if it progresses further will talk about further diagnostic interventions. But for now will follow. She will continue with current respiratory therapy. She is also going to work on cutting down her smoking. 07/26/2024 the patient is here for pulmonary follow-up visit. She has multiple complaints including abdominal discomfort because of a ventral hernia and also some now back pain with some sciatica. This is most of her complaints. Does not really have any respiratory complaints. Doing okay from a breathing standpoint. The patient did have a recent CT scan of the chest which which we personally reviewed demonstrating the persistent irregular nodular density in the l right upper lobe which is concerning nature. She had initially visualized back in April and now 3 months later still there and is concerning in appearance. Based on her comorbidities will go ahead and request a PET scan to see how metabolically active this is in order to consider the best place to biopsy. She will continue with current therapy. She is going to work with her surgeon regarding her ventral hernia and will follow-up with her primary care doctor regarding her back pain. Once I get the PET scan will call them. The patient follow-up in 6 months with mean to reassess. 08/08/2024 the patient is here for sick visit. Apparently she was scheduled to undergo an endoscopy and was canceled due to her significant wheezing. She had been exposed to significant amount of allergies recently and had significant wheezing then. She was set up today. I will today she does have some wheezing but minimal. Will go ahead and set up with a nebulizer treatment. It did relieve some of the wheezing. Will also give her a short course of prednisone. The patient will continue her respiratory therapy and she is going to from frame from smoking. We did review the PET scan demonstrating the FDG avid pulmonary nodule in the right upper lobe. In addition to that the significant FDG avid masslike density in the stomach. She is going to hopefully undergo undergo an endoscopy soon. In view of my exam in her respiratory wheezing I do believe that she will be okay to have the procedure in a few weeks. She should be finishing up the therapy the medicines just prior to that. If she has any questions or concerns she can call for any other recommendations. She will be provided a nebulizer today to use twice a day with albuterol. 12/07/2024 the patient is here for pulmonary follow-up visit. Overall the patient has been doing about the same. Has been having significant issues with her ostomy with significant leakage issues and back pain. She did follow-up with GI. The patient did undergo a barium swallow that was reassuring and ultimately underwent a CT scan of the abdomen that was also reassuring without any evidence of any findings on the stomach. Therefore no additional interventions were taken place regarding the abnormal PET scan findings. She does have the significant FDG active area in the right upper lung area. The left lower lobe pulmonary nodule does not have significant FDG activity. She did have a CT scan of the abdomen in the nodule in the left lower lobe continues to be stable although we could not appreciate the right upper lobe nodular density. She is going to follow-up with GI and also General surgery regarding her stoma. In the meantime will follow-up with a repeat CAT scan in the next month to address the abnormal FDG avid pulmonary nodule. The patient will foll ow-up in 4-6 months if she has any issues prior to this she can always call for an earlier assessment. [facility] Medical History COPD (chronic obstructive pulmonary disease) Colovaginal fistula Parastomal hernia Pulmonary nodules Chronic back pain Smoker Hypertension Surgical History Hx of surgical procedure (~12/24/23) H/O removal of cyst History of hysterectomy H/O hernia repair Previous section Social History Household Members: Family Housing: House Housing Other:: in-law apartment Are you a primary post acute care nurse practitioner to a significant other at home: No Do you presently have visiting nurse or other home services: No Comment: rings appropriately Patient Tobacco Use Status: Current everyday Tobacco user Tobacco use type: Cigarette Cigarettes Per Day: 3 Years Smoked: 50 Second Hand Smoke Exposure: No Advance Directives Date on File: 12/22/23 service: No Review of Systems Const Denies chills and Denies fever(s) ENT Reports nasal congestion Card Denies chest pain and Reports dyspnea on exertion Resp Reports cough, Reports dyspnea on exertion and Reports wheezing GI Reports as per HPI and Reports abdominal pain Musc Reports back pain, Reports myalgias and Reports radiating pain into limb Skin/Breast Denies rash Fei/Lymph Reports no additional complaints Aller/Immun Reports wheezing Physical Exam Vital Signs: Last Vital Signs Pulse 84 12/07/24 10:53 BP 122/64 12/07/24 10:53 Pulse Ox 97 12/07/24 10:53 Oxygen Delivery Method Room Air 12/07/24 10:53 BMI result Body Mass Index 28.0 Last Vital Signs Temp 98.3 F 12/23/23 08:10 Pulse 63 12/23/23 08:10 Resp 16 12/23/23 08:10 BP 125/46 L 12/23/23 08:10 Pulse Ox 94 12/23/23 08:10 O2 Del Method Room Air 12/23/23 08:10 BMI result Body Mass Index 29.6 Const General: comfortable HEENT Head: Yes normocephalic Neck Neck: Yes supple Chest Chest palpation & inspection: normal inspection of the chest Resp Effort & Inspection: normal respiratory effort Auscultation: no wheezes and diminished lung sounds Cardio Heart sounds: S1 normal heart sound present and S2 normal heart sound present GI Palpation (GI): Soft to palpation Skin General skin exam: no rashes or lesions noted Extrem General: No clubbing and No cyanosis Assessment & Plan Assessment & Plan (1) Pulmonary nodules: Code(s): R91.8 - Other nonspecific abnormal finding of lung field Category: Medical (2) Smoker: Code(s): F17.200 - Nicotine dependence, unspecified, uncomplicated Category: Social Hx (3) Pulmonary nodule 1 cm or greater in diameter: Code(s): R91.1 - Solitary pulmonary nodule Category: Medical (4) COPD (chronic obstructive pulmonary disease): Code(s): J44.9 - Chronic obstructive pulmonary disease, unspecified Category: Medical Qualifiers: COPD type: COPD with acute exacerbation Qualified Code(s): J44.1 - Chronic obstructive pulmonary disease with (acute) exacerbation Plan continue Wixela daily start Prednisone start nebulizer with albuterolm BID CT chest in 6-8 weeks Tobacco cessation: pt is not ready to quit. usually cuts down in the winter F/U in 3-6 months Orders: Orders CT chest wo IV con 2 Months R91.1 - Solitary pulmonary nodule Coding Level of Care Code Est Pt Level 4 (13211) Complex EM visit Add On G2211 Diagnoses Pulmonary nodules R91.8 Smoker F17.200 Pulmonary nodule 1 cm or greater in diameter R91.1 Chronic obstructive pulmonary disease with acute exacerbation J44.1 COPD type: COPD with acute exacerbation Time Spent (min) 17
--- OUTSIDE RECORDS SUMMARY | 2024-12-07 13:40 | XMS_ITS | Patient Health Record ---
Author Organization [facility] Address [address] [place] [address] Care Team Providers Care Crm Consultant Name Role Phone JONATHAN BOWMAN Primary Care Provider Valentin Dick Unavailable [phone] Reason For Referral No Information Medications Medication SIG (Take, Route, Frequency, Duration) Notes Start Date End Date Status Aspir-81 81 MG 1 tablet Orally Once a day; Duration: 30 day(s) Active Fish Oil 1000 MG 1 capsule Orally Onc e a day; Duration: 30 day(s) Active D3 Adult 1000 UNIT 1 tablet Orally Once a day; Duration: 30 day(s) Active Q65-Mrpprv 1 MG as directed Orally Active MagOx [...] Status Risk Notes Problem Low back pain (160393262) Low back pain (M54.5) Active confirmed Problem Chronic pain (58803466) Other chronic pain (G89.29) Active confirmed Problem Arthropathy of spinal facet joint (disorder) (284133333) Facet arthropathy of spine (M47.819) Active confirmed Plan Of Treatment Pending Test Test Name Order Date MRI LSP W/O CONTRAST 10/05/2017 Insurance Providers Payer Name Payer Address Payer Phone Subscriber Number Group Number Insured Name Patient Relationship to Insured Coverage Start Date Coverage End Date [employer] [address] [address] [place] [phone] [id number] July Self - patient is the insured Medical (General) History Medical History History ICD Code HBP Surgical History Surgery Date(Month/Year) 3 C Sections 1961,62,63 Hysterectomy 2010
== END 2024-12-07 11:15 | disposition home or self-care (01) ==
LOC: HO.HPS 10:51
PROVIDERS: PCP Internal Medicine; Visit Provider Hospitalist
DX: R91.8 Other nonspecific abnormal finding of lung field (principal); F17.200 Nicotine dependence, unspecified, uncomplicated; R91.1 Solitary pulmonary nodule; J44.1 Chronic obstructive pulmonary disease with (acute) exacerbation
CPT/HCPCS: 99214; G2211

== ENCOUNTER → 2024-12-07 10:50 | Outpatient (BNVA) | payer MEDICARE, SELFPAY | PROVIDERS: PCP Internal Medicine; Visit Provider Hospitalist | DX: R91.8 Other nonspecific abnormal finding of lung field (principal); R91.1 Solitary pulmonary nodule; F17.200 Nicotine dependence, unspecified, uncomplicated; J44.1 Chronic obstructive pulmonary disease with (acute) exacerbation; I10 Essential (primary) hypertension | CPT/HCPCS: 99212 ==

== ENCOUNTER → 2024-12-11 13:23 | Outpatient (BNVA) | payer MEDICARE, SELFPAY | PROVIDERS: PCP Internal Medicine; Visit Provider Surgery | DX: Z43.3 Encounter for attention to colostomy (principal) | CPT/HCPCS: 99211 ==